=== PATIENT | male | born 1935 | race Caucasian/White ===

== ENCOUNTER 2020-06-11 07:56 | Outpatient (REF) | payer MEDICARE, SELFPAY ==
[2020-06-11 11:57] LABS: Alanine Aminotransferase 23 U/L (0-40); Albumin Level 3.8 g/dL (3.5-5.0); Alkaline Phosphatase 56 U/L (39-117); Anion Gap 11 (12-20); Aspartate Amino Transferase 24 U/L (5-37); Bilirubin Total 0.6 mg/dL (0.0-1.0); Blood Urea Nitrogen 23 mg/dL (9-16); Calcium 8.4 mg/dL (8.4-10.2); Carbon Dioxide 27 mmol/L (22-29); Chloride 107 mmol/L (96-108); Cholesterol 135 mg/dL; Estimated Glomerular Filt Rate > 60; Glucose Fasting 112 mg/dL (60-99); HDL Cholesterol 49 mg/dL; LDL Cholesterol Calculated 72 mg/dl; Potassium 4.3 mmol/l (3.3-5.1); Sodium 141 mmol/L (135-145); Total Protein 6.2 g/dL (6.5-8.0); Triglycerides 73 mg/dL
== END 2020-06-11 07:57 | disposition home or self-care (01) ==
LOC: HO.HMGCLDS 07:56
PROVIDERS: PCP Internal Medicine; Visit Provider Internal Medicine
DX: E78.2 Mixed hyperlipidemia (principal); I35.0 Nonrheumatic aortic (valve) stenosis
CPT/HCPCS: 80053; 80061

== ENCOUNTER 2020-12-18 07:45 | Outpatient (REF) | payer MEDICARE, SELFPAY ==
[2020-12-18 12:07] LABS: Alanine Aminotransferase 25 U/L (0-40); Albumin Level 4.1 g/dL (3.5-5.0); Alkaline Phosphatase 55 U/L (39-117); Anion Gap 12 (12-20); Aspartate Amino Transferase 24 U/L (5-37); Bilirubin Total 0.8 mg/dL (0.0-1.0); Blood Urea Nitrogen 27 mg/dL (9-16); Calcium 9.3 mg/dL (8.4-10.2); Carbon Dioxide 29 mmol/L (22-29); Chloride 107 mmol/L (96-108); Cholesterol 134 mg/dL; Estimated Glomerular Filt Rate > 60; Glucose Fasting 115 mg/dL (60-99); HDL Cholesterol 54 mg/dL; LDL Cholesterol Calculated 68 mg/dl; Potassium 4.5 mmol/L (3.3-5.1); Sodium 143 mmol/L (135-145); Total Protein 6.4 g/dL (6.5-8.0); Triglycerides 63 mg/dL
[2020-12-18 12:32] LABS: Estimated Average Glucose 123 mg/dL; Hemoglobin A1c % 5.9 %
[2020-12-18 12:35] LABS: Creatinine Urine 72.25 mg/dL; Microalbum/Creatinine Ratio Ur 9.6 ug/mg cr
== END 2020-12-18 07:46 | disposition home or self-care (01) ==
LOC: HO.HMGCLDS 07:45
PROVIDERS: PCP Internal Medicine; Visit Provider Internal Medicine
DX: R73.9 Hyperglycemia, unspecified (principal); I35.0 Nonrheumatic aortic (valve) stenosis; E78.5 Hyperlipidemia, unspecified
CPT/HCPCS: 36415; 80053; 80061; 82043; 83036

== ENCOUNTER → 2021-02-15 13:25 | Outpatient (REF) | payer MEDICARE, SELFPAY ==
--- NOTE | 2021-02-15 13:34 | CA_ITS ---
Transthoracic Echocardiogram Patient (Last, First, Middle): Herb Quintero, Gender: Male Date of : 1935 Age: 85 Procedure Date: 02/15/2021 Procedure Type: Transthoracic Echocardiogram Location: OP Height: 172.72 cm Weight: 98.43 kg BSA: 2.12 m2 Heart Rate: bpm BP: 125 / 68 mmHg Eight Section Blower: Referring MD: Estee Butler MD Symptoms: I35.O AORTIC STENOSIS Study Quality: Fair ECG Rhythm: Sinus Conclusions: - The left ventricular systolic function is normal. The visually estimated ejection fraction is between 65-70%. - There is severe aortic valve stenosis. Findings Left Ventricle Normal left ventricular cavity size. There is moderately increased left ventricular wall thickness. The left ventricular systolic function is normal. The visually estimated ejection fraction is between 65-70%. There is no evidence of regional wall motion abnormalities. E/E prime ratio is <8, consistent with normal filling pressures. Evidence suggests grade I (mild) diastolic dysfunction. Right Ventricle Normal right ventricular cavity size and systolic function. Atria Both atria are normal in size. Aortic Valve There is moderate calcification of the aortic valve. There is severe aortic valve stenosis. The peak aortic velocity is 4.00 m/s with a calculated peak gradient of 64 mmHg. The mean gradient is 40 mmHg. The aortic valve area is 0.80 cm2. There is no aortic valve regurgitation. Dimensionless index 0.24. Mitral Valve The mitral valve appears normal. There is no mitral valve regurgitation. There is no mitral valve stenosis. Pulmonic Valve The pulmonic valve was not well visualized. Tricuspid Valve Normal tricuspid valve structure. There is trace tricuspid valve regurgitation. Tricuspid regurgitation envelope is inadequate for calculation of right ventricular systolic pressure. Great Vessels The aorta was not well visualized. Venous The inferior vena cava is normal in size and collapses greater than 50% with inspiration. Pericardium/Pleural There is no evidence of pericardial effusion. Prior Study Comparison Changes noted compared to prior study dated: 10/19/2018. Progression of aortic stenosis. Measurements 2D Linear Measurements IVSd: 1.42 0.6-0.9/0.6-1.0 cm LVIDd: 5.32 3.9-5.3/4.2-5.9 cm LVIDd Index: 2.51 2.4-3.2/2.2-3.1 cm/m2 LVIDs: 3.61 2.0-3.6 cm LVPWd: 1.44 0.7-1.1 cm LA Diam: 4.50 2.7-3.8/3.0-4.0 cm LAIDs Index: 2.12 1.5-2.3 cm/m2 LV Mass: 412.65 67-162/88-224 g LV Mass Index: 194.64 43-95/49-115 g/m2 LVOT Diam: 2.10 3.0+(-)1.3 cm Mitral Valve MV Pk E: 0.47 MV PK A: 0.80 MV Decel Time: 277.00 E/A: 0.60 E'Lateral: 6.53 E'Medial: 5.00 E/E' Med: 9.30 E/E' Lat: 7.20 PHT: 81.00 MVA PHT: 2.72 Decel [place]: 1.69 Aortic Valve AoV Pk Ish: 4.00 AoV Mn Ish: 2.99 AoV VTI: 0.85 AoV Pk Grad: 64.00 Aov Mn Grad: 40.00 ALHAJI Cont.VTI: 0.80 LVOT LVOT Pk Ish: 1.06 LVOT Mn Ish: 0.72 LVOT VTI: 0.23 LVOT Pk Grad: 4.00 LVOT Mn Grad: 3.00 LVOT Diam: 2.10 LVOT Area: 4.52 Diastolic Function MV Pk E: 0.47 MV Pk A: 0.80 E/A: 0.60 E'Medial: 5.00 E/E' Med: 9.30 E' Laterial: 6.53 E/E' Lat: 7.20 Right Ventricle TAPSE (mm): 3.30 TVS' Ish: 14.70 Tricuspid Valve TR Pk Ish: 2.00 TR Pk Grad: 16.00 RA Press: 3.00 RVSP: 19.00 Pulmonary Valve PV Pk Ish: 0.98 Peak PV Grad: 4.00 Updated in Other Vendor System with Status of Final Masood Alberts MD electronically signed on 02/16/2021 11:36:50 AM with status of Final
== END ==
LOC: HO.CARD 13:25
PROVIDERS: Visit Provider Internal Medicine
DX: E78.5 Hyperlipidemia, unspecified (principal); R73.9 Hyperglycemia, unspecified; I35.0 Nonrheumatic aortic (valve) stenosis
CPT/HCPCS: 93306

== ENCOUNTER 2021-07-01 08:16 | Outpatient (REF) | payer MEDICARE, SELFPAY ==
[2021-07-01 11:57] LABS: Hematocrit 40.9 % (42.0-52.0); Hemoglobin 13.6 g/dl (14.0-18.0); Mean Corpuscular HGB Conc 33.3 g/dl (31.0-36.0); Mean Corpuscular Hemoglobin 32.9 pg (27.0-33.0); Mean Corpuscular Volume 98.8 fL (80.0-98.0); Mean Platelet Volume 10.9 fL (9.4-12.4); Platelet Count 154 X10*3/uL (160-400); Red Blood Count 4.14 X10*6/uL (4.60-5.80); Red Cell Distribution Width 12.1 % (11.0-16.0); White Blood Count 4.4 X10*3/uL (4.8-10.8)
[2021-07-01 12:17] LABS: Alanine Aminotransferase 25 U/L (0-40); Albumin Level 3.8 g/dL (3.5-5.0); Alkaline Phosphatase 50 U/L (39-117); Anion Gap 9 (12-20); Aspartate Amino Transferase 26 U/L (5-37); Bilirubin Total 0.7 mg/dL (0.0-1.0); Blood Urea Nitrogen 22 mg/dL (9-16); Calcium 9.1 mg/dL (8.4-10.2); Carbon Dioxide 28 mmol/L (22-29); Chloride 108 mmol/L (96-108); Cholesterol 140 mg/dL; Estimated Glomerular Filt Rate > 60; Glucose Fasting 104 mg/dL (60-99); HDL Cholesterol 46 mg/dL; LDL Cholesterol Calculated 80 mg/dl; Sodium 141 mmol/L (135-145); Total Protein 6.2 g/dL (6.5-8.0); Triglycerides 71 mg/dL
[2021-07-01 12:37] LABS: Estimated Average Glucose 120 mg/dL; Hemoglobin A1c % 5.8 %
== END 2021-07-01 08:17 | disposition home or self-care (01) ==
LOC: HO.HMGCLDS 08:16
PROVIDERS: PCP Internal Medicine; Visit Provider Internal Medicine
DX: E78.5 Hyperlipidemia, unspecified (principal); I35.0 Nonrheumatic aortic (valve) stenosis; R73.9 Hyperglycemia, unspecified
CPT/HCPCS: 36415; 80053; 80061; 83036; 85027

== ENCOUNTER 2021-07-05 12:29 | Outpatient (REF) | payer MEDICARE, SELFPAY ==
[2021-07-05 14:33] LABS: Iron 78 mcg/dL (45-160); Percent Iron Saturation 22 % (15-50); Total Iron Binding Capacity 360 mcg/dL (228-428); Unsaturated Iron Binding 282 ug/dL
[2021-07-05 15:11] LABS: Folate > 20.0 ng/mL (> or = 4.0); Vitamin B12 411 pg/mL (200-900)
== END 2021-07-05 12:30 | disposition home or self-care (01) ==
LOC: HO.HMGCLDS 12:29
PROVIDERS: PCP Internal Medicine; Visit Provider Internal Medicine
DX: D64.9 Anemia, unspecified (principal); E78.5 Hyperlipidemia, unspecified; R73.9 Hyperglycemia, unspecified
CPT/HCPCS: 36415; 82607; 82746; 83540

== ENCOUNTER → 2021-08-20 13:45 | Outpatient (BNVA) | payer MEDICARE, SELFPAY | PROVIDERS: PCP Internal Medicine; Referring Provider Internal Medicine; Visit Provider Internal Medicine | DX: Z13.89 Encounter for screening for other disorder (principal) | CPT/HCPCS: 93005; 99202 ==

== ENCOUNTER → 2021-08-20 14:27 | Outpatient (REF) | payer MEDICARE, SELFPAY ==
--- NOTE | 2021-08-20 14:35 | CA_ITS ---
Transthoracic Echocardiogram Patient (Last, First, Middle): Herb Quintero, Gender: Male Date of : 1935 Age: 85 Procedure Date: 08/20/2021 Procedure Type: Transthoracic Echocardiogram Location: OP Height: 177.8 cm Weight: 99.79 kg BSA: 2.17 m2 Heart Rate: bpm BP: 129 / 60 mmHg Network Infrastructure Architect: ANGEL Referring MD: Masood Alberts MD Symptoms: I35.0 - Nonrheumatic aortic (valve) stenosis Study Quality: Fair ECG Rhythm: Sinus Conclusions: - The left ventricular systolic function is normal. The calculated ejection fraction is 68% by biplane method. - Moderately increased right ventricular cavity size. - There is severe aortic valve stenosis. Findings Left Ventricle Normal left ventricular cavity size. There is moderately increased left ventricular wall thickness. The left ventricular systolic function is normal. The calculated ejection fraction is 68% by biplane method. There is no evidence of regional wall motion abnormalities. Evidence suggests grade I (mild) diastolic dysfunction. Possible basal inferior hypokinesis. Right Ventricle Moderately increased right ventricular cavity size. There is normal right ventricular systolic function. Atria Both atria are normal in size. Aortic Valve There is moderate calcification of the aortic valve. There is severe aortic valve stenosis. The peak aortic velocity is 4.64 m/s with a calculated peak gradient of 86 mmHg. The mean gradient is 54 mmHg. The aortic valve area is 0.78 cm2. There is no aortic valve regurgitation. Mitral Valve There is mild anterior mitral leaflet thickening. There is mild mitral valve regurgitation. There is no mitral valve stenosis. Pulmonic Valve The pulmonic valve was not well visualized. Tricuspid Valve There is trace tricuspid valve regurgitation. The pulmonary artery systolic pressure is normal. Great Vessels The asc aorta is normal in size. Small plaque is seen in the sinuses of Valsalva. Venous The inferior vena cava is normal in size and collapses greater than 50% with inspiration. Pericardium/Pleural There is no evidence of pericardial effusion. Prior Study Comparison Changes noted compared to prior study dated: 02/15/2021. Progression of aortic valve stenosis. Measurements 2D Linear Measurements IVSd: 1.43 0.6-0.9/0.6-1.0 cm LVIDd: 5.28 3.9-5.3/4.2-5.9 cm LVIDd Index: 2.43 2.4-3.2/2.2-3.1 cm/m2 LVIDs: 3.17 2.0-3.6 cm LVPWd: 1.37 0.7-1.1 cm Ao Root: 3.70 2.1-3.5 cm LA Diam: 4.80 2.7-3.8/3.0-4.0 cm LAIDs Index: 2.21 1.5-2.3 cm/m2 LV Mass: 395.53 67-162/88-224 g LV Mass Index: 182.27 43-95/49-115 g/m2 LVOT Diam: 2.10 3.0+(-)1.3 cm 2D Systolic Function EF 4C: 64.60 >55% EF 2C: 72.50 >55% EF BiP: 68.10 >55% Mitral Valve E'Lateral: 5.87 E'Medial: 4.68 Aortic Valve AoV Pk Ish: 4.64 AoV Mn Ish: 3.50 AoV VTI: 1.14 AoV Pk Grad: 86.00 Aov Mn Grad: 54.00 ALHAJI Cont.VTI: 0.78 LVOT LVOT Pk Ish: 1.12 LVOT Mn Ish: 0.73 LVOT VTI: 0.26 LVOT Pk Grad: 5.00 LVOT Mn Grad: 3.00 LVOT Diam: 2.10 LVOT Area: 3.46 Diastolic Function E'Medial: 4.68 E' Laterial: 5.87 Tricuspid Valve TR Pk Ish: 1.35 TR Pk Grad: 7.00 RA Press: 3.00 RVSP: 10.00 Great Vessels Aorta Ao Root-2D: 3.70 2.0-3.7 cm Ao Asc: 3.30 2.1-3.4 cm Updated in Other Vendor System with Status of Final Masood Alberts MD electronically signed on 08/21/2021 10:51:41 AM with status of Final
== END ==
LOC: HO.CARD 14:27
PROVIDERS: Visit Provider Internal Medicine
DX: I35.0 Nonrheumatic aortic (valve) stenosis (principal); I45.9 Conduction disorder, unspecified; E78.5 Hyperlipidemia, unspecified
CPT/HCPCS: 93005; 93306; 99202

== ENCOUNTER → 2021-08-29 13:38 | Outpatient (BNVA) | payer MEDICARE, SELFPAY | PROVIDERS: PCP Internal Medicine; Referring Provider Internal Medicine; Visit Provider Internal Medicine | DX: I35.0 Nonrheumatic aortic (valve) stenosis (principal); I45.9 Conduction disorder, unspecified; E78.5 Hyperlipidemia, unspecified | CPT/HCPCS: 99212 ==

== ENCOUNTER 2021-09-20 10:05 | Outpatient (REF) | payer MEDICARE, SELFPAY ==
[2021-09-20 11:42] LABS: Prothrombin Time 11.8 SEC (9.9-13.0)
[2021-09-20 11:44] LABS: Hematocrit 41.5 % (42.0-52.0); Hemoglobin 13.9 g/dl (14.0-18.0); Mean Corpuscular HGB Conc 33.5 g/dl (31.0-36.0); Mean Corpuscular Hemoglobin 33.1 pg (27.0-33.0); Mean Corpuscular Volume 98.8 fL (80.0-98.0); Mean Platelet Volume 9.9 fL (9.4-12.4); Platelet Count 147 X10*3/uL (160-400); Red Cell Distribution Width 12.2 % (11.0-16.0); White Blood Count 5.3 X10*3/uL (4.8-10.8)
[2021-09-20 11:50] LABS: Anion Gap 10 (12-20); Blood Urea Nitrogen 24 mg/dL (9-16); Calcium 9.5 mg/dL (8.4-10.2); Carbon Dioxide 30 mmol/L (22-29); Chloride 106 mmol/L (96-108); Estimated Glomerular Filt Rate > 60; Glucose Random 115 mg/dL (60-115); Potassium 5.1 mmol/L (3.3-5.1); Sodium 141 mmol/L (135-145)
== END 2021-09-20 10:06 | disposition home or self-care (01) ==
LOC: HO.HMGCLDS 10:05
PROVIDERS: Visit Provider Internal Medicine
DX: I35.0 Nonrheumatic aortic (valve) stenosis (principal); I50.22 Chronic systolic (congestive) heart failure
CPT/HCPCS: 36415; 80048; 85027; 85610

== ENCOUNTER → 2021-10-10 13:36 | Outpatient (BNVA) | payer MEDICARE, SELFPAY | PROVIDERS: PCP Internal Medicine; Referring Provider Internal Medicine; Visit Provider Internal Medicine | DX: I35.0 Nonrheumatic aortic (valve) stenosis (principal); I45.9 Conduction disorder, unspecified; E78.5 Hyperlipidemia, unspecified; Z79.899 Other long term (current) drug therapy | CPT/HCPCS: 99212 ==

== ENCOUNTER 2022-01-07 07:42 | Outpatient (REF) | payer MEDICARE, SELFPAY ==
[2022-01-07 11:56] LABS: Hematocrit 38.8 % (42.0-52.0); Hemoglobin 13.1 g/dl (14.0-18.0); Mean Corpuscular HGB Conc 33.8 g/dl (31.0-36.0); Mean Corpuscular Hemoglobin 33.2 pg (27.0-33.0); Mean Corpuscular Volume 98.2 fL (80.0-98.0); Mean Platelet Volume 10.5 fL (9.4-12.4); Platelet Count 142 X10*3/uL (160-400); Red Blood Count 3.95 X10*6/uL (4.60-5.80); White Blood Count 5.1 X10*3/uL (4.8-10.8)
[2022-01-07 12:01] LABS: Estimated Average Glucose 120 mg/dL; Hemoglobin A1c % 5.8 %
[2022-01-07 12:17] LABS: TSH reflex Free T4 2.79 uIU/mL (0.32-4.0)
[2022-01-07 12:45] LABS: Alanine Aminotransferase 27 U/L (0-40); Albumin Level 3.9 g/dL (3.5-5.0); Alkaline Phosphatase 52 U/L (39-117); Anion Gap 11 (12-20); Aspartate Amino Transferase 22 U/L (5-37); Bilirubin Total 0.7 mg/dL (0.0-1.0); Blood Urea Nitrogen 24 mg/dL (9-16); Calcium 8.6 mg/dL (8.4-10.2); Carbon Dioxide 25 mmol/L (22-29); Chloride 108 mmol/L (96-108); Cholesterol 142 mg/dL; Estimated Glomerular Filt Rate > 60; Glucose Fasting 130 mg/dL (60-99); HDL Cholesterol 47 mg/dL; LDL Cholesterol Calculated 82 mg/dl; Potassium 4.4 mmol/L (3.3-5.1); Sodium 140 mmol/L (135-145); Total Protein 6.2 g/dL (6.5-8.0); Triglycerides 66 mg/dL
== END 2022-01-07 07:43 | disposition home or self-care (01) ==
LOC: HO.HMGCLDS 07:42
PROVIDERS: Visit Provider Internal Medicine
DX: E78.5 Hyperlipidemia, unspecified (principal); I35.0 Nonrheumatic aortic (valve) stenosis; R73.9 Hyperglycemia, unspecified
CPT/HCPCS: 36415; 80053; 80061; 83036; 84443; 85027

== ENCOUNTER 2022-01-13 12:29 | Outpatient (REF) | payer MEDICARE, SELFPAY ==
--- NOTE | ~2022-01-13 | XR_ITS ---
EXAMINATION: XR KNEE AP STANDING CLINICAL INFORMATION: Pain COMPARISON: None TECHNIQUE: AP and lateral bilateral standing view of the knees was obtained. FINDINGS: Left: Bone alignment is normal. No fracture or dislocation is seen. There is tricompartment arthritis. There is no joint effusion. Right: There is mild varus angulation. Bone alignment is otherwise normal. There is severe tricompartment arthritis. There is a joint effusion. XR/XR knee standing BI IMPRESSION: Right: Varus angulation, severe tricompartment arthritis and joint effusion. Left knee: Moderate arthritis.
== END 2022-01-13 12:30 | disposition home or self-care (01) ==
LOC: HO.HMGCX 12:29
PROVIDERS: PCP Internal Medicine; Visit Provider Internal Medicine
DX: M25.561 Pain in right knee (principal); E78.5 Hyperlipidemia, unspecified; I35.0 Nonrheumatic aortic (valve) stenosis; R73.9 Hyperglycemia, unspecified
CPT/HCPCS: 73565

== ENCOUNTER 2022-03-13 09:00 | Outpatient (RCR) | payer MEDICARE, SELFPAY ==
--- NOTE | 2022-01-24 13:09 | MHC.PT.EP ---
[facility] [place] Office [place] Office [place] Office [address] Frandy Ornleas [address] [phone] F: [phone] F: [phone] F: [phone] F: [phone] Physical Therapy Plan of Care Date of Evaluation: Date of Surgery: N/A Diagnosis: pain in right knee (RC) Assessment: Herb is a 86 yo M referred to PT for pain in right knee. His x-rays reveal tricompartment arthritis in his R knee. He reports being I with ADLs but does have difficulty with walking for extended periods of time and reports of having frequent falls on uneven surfaces due to knee pain. Upon examination he presents with gross B weakness of hip and LE strength, decreased hip and knee ROM and altered balance. Herb will benefit from skilled PT to address the aforementioned impairments and recieve gait and balance training with functional movement training. Frequency and Duration: The patient will be seen 1/x week for 4 weeks Short Term Goals: Patient will report 25% decrease in pain while walking for extended periods of time which will allow him to return to walking regularly. pt will improve B ankle dorsiflexion by 10 degrees to reduce tripping and reduce fall risk. Aml Analyst Goals: Patient will be I with HEP to promote oil heaterman pain management strategies and maintain level of function in 4 weeks. Patient will demonstrate a 1/2 increase in gross hip strength which will allow him to maintain balance on uneven surfaces in 4 weeks. Treatment Plan: Modalities to reduce pain, spasms and effusion. Manual therapy to restore motion and function. Therapeutic exercise to improve strength and flexibility. Neuromuscular re-education for posture and balance. Therapeutic activities to return to functional activities of daily living. Electronically signed by: Deepti Kruse PT, DPT Please sign and return to therapist. Thank you for your referral.
--- NOTE | 2022-04-16 08:41 | MHC.PT.DC ---
[facility] [place] Office [place] Office [place] Office [address] Frandy Ornelas [address] [phone] F: [phone] F: [phone] F: [phone] F: [phone] Physical Therapy Discharge Report Diagnosis: pain in right knee (RC) Date of Surgery: N/A Date of Evaluation: 01/24/22 Date of Discharge: 04/16/22 Treatments to Date: 6 Cancellations to Date: 0 No Shows to Date: 0 Discharge Status: Improved Function Independent with HEP Discharge Summary: Herb attended 6 PT visits. He made improvements but still had significant symptoms. He was independent with his HEP. He is therefore being d/c from PT. Electronically signed by: Virgie Christianson, PT DPT Please sign and return to therapist. Thank you for your referral.
== END 2022-04-16 08:41 | disposition home or self-care (01) ==
LOC: HO.PT 09:00
PROVIDERS: PCP Nurse Practitioner Family; Visit Provider Nurse Practitioner Family
DX: M25.561 Pain in right knee (principal)
CPT/HCPCS: 97110; 97140; 97162; 97530

== ENCOUNTER → 2022-05-01 14:24 | Outpatient (BNVA) | payer MEDICARE, SELFPAY | PROVIDERS: PCP Internal Medicine; Visit Provider Orthopaedic Surgery | DX: M17.11 Unilateral primary osteoarthritis, right knee (principal) | CPT/HCPCS: 20610; 99202; J1100 ==

== ENCOUNTER → 2022-06-06 11:14 | Outpatient (BNVA) | payer MEDICARE, SELFPAY | PROVIDERS: PCP Internal Medicine; Visit Provider Orthopaedic Surgery | DX: M17.11 Unilateral primary osteoarthritis, right knee (principal) | CPT/HCPCS: 99212 ==

== ENCOUNTER → 2022-06-09 13:00 | Outpatient (BNVA) | payer MEDICARE, SELFPAY | PROVIDERS: PCP Internal Medicine; Visit Provider Orthopaedic Surgery | DX: M17.11 Unilateral primary osteoarthritis, right knee (principal); R41.3 Other amnesia | CPT/HCPCS: 20610; 99212; J7318 ==

== ENCOUNTER 2022-06-30 08:51 | Outpatient (REF) | payer MEDICARE, SELFPAY ==
[2022-06-30 11:17] LABS: MANUAL DIFF FLAG NO
[2022-06-30 11:29] LABS: Basophils Percent Auto 0.3 % (0-2); Eosinophils Absolute Auto 0.2 X10*3/uL (0.0-0.4); Eosinophils Percent Auto 3.3 % (0-4); Hematocrit 42.3 % (42.0-52.0); Hemoglobin 14.1 g/dl (14.0-18.0); Imm Gran Abs Auto 0.02 X10*3/uL (0.00-0.03); Imm Gran Pct Auto 0.3 % (0.0-0.4); Lymphocytes Absolute Auto 1.8 X10*3/uL (1.2-4.9); Lymphocytes Percent Auto 29.4 % (20-40); Mean Corpuscular HGB Conc 33.3 g/dl (31.0-36.0); Mean Corpuscular Hemoglobin 32.9 pg (27.0-33.0); Mean Corpuscular Volume 98.6 fL (80.0-98.0); Mean Platelet Volume 10.4 fL (9.4-12.4); Monocytes Absolute Auto 0.6 X10*3/uL (0.1-1.2); Monocytes Percent Auto 9.9 % (2-11); Neutrophils Absolute Auto 3.4 x10*3/uL (2.0-8.3); Neutrophils Percent Auto 56.8 % (45-73); Platelet Count 171 X10*3/uL (160-400); Red Blood Count 4.29 X10*6/uL (4.60-5.80); Red Cell Distribution Width 12.2 % (11.0-16.0)
[2022-06-30 11:33] LABS: Estimated Average Glucose 120 mg/dL; Hemoglobin A1c % 5.8 %
[2022-06-30 12:17] LABS: Alanine Aminotransferase 23 U/L (0-40); Alkaline Phosphatase 59 U/L (39-117); Anion Gap 12 (12-20); Aspartate Amino Transferase 22 U/L (5-37); Bilirubin Total 0.7 mg/dL (0.0-1.0); Blood Urea Nitrogen 20 mg/dL (9-16); Calcium 8.8 mg/dL (8.4-10.2); Carbon Dioxide 27 mmol/L (22-29); Chloride 107 mmol/L (96-108); Cholesterol 128 mg/dL; Estimated Glomerular Filt Rate > 60; Glucose Fasting 119 mg/dL (60-99); HDL Cholesterol 46 mg/dL; Iron 137 mcg/dL (45-160); LDL Cholesterol Calculated 67 mg/dl; Percent Iron Saturation 41 % (15-50); Potassium 4.1 mmol/L (3.3-5.1); Sodium 142 mmol/L (135-145); Total Iron Binding Capacity 331 mcg/dL (228-428); Total Protein 6.4 g/dL (6.5-8.0); Triglycerides 77 mg/dL; Unsaturated Iron Binding 194 ug/dL
== END 2022-06-30 08:52 | disposition home or self-care (01) ==
LOC: HO.HMGCLDS 08:51
PROVIDERS: PCP Internal Medicine; Visit Provider Internal Medicine
DX: I35.0 Nonrheumatic aortic (valve) stenosis (principal); R73.9 Hyperglycemia, unspecified; E78.5 Hyperlipidemia, unspecified
CPT/HCPCS: 36415; 80053; 80061; 83036; 83540; 85025

== ENCOUNTER → 2022-07-07 08:50 | Outpatient (BNVA) | payer MEDICARE, SELFPAY | PROVIDERS: PCP Internal Medicine; Visit Provider Orthopaedic Surgery | DX: M17.11 Unilateral primary osteoarthritis, right knee (principal); I45.9 Conduction disorder, unspecified | CPT/HCPCS: 20610; 99212; J1100 ==

== ENCOUNTER → 2022-08-13 08:17 | Outpatient (BNVA) | payer MEDICARE, SELFPAY | PROVIDERS: PCP Internal Medicine; Visit Provider Anesthesiology | DX: M17.11 Unilateral primary osteoarthritis, right knee (principal); I35.0 Nonrheumatic aortic (valve) stenosis; G89.4 Chronic pain syndrome | CPT/HCPCS: 99202 ==

== ENCOUNTER 2022-09-16 05:58 | Outpatient (REF) | payer MEDICARE, SELFPAY ==
--- NOTE | ~2022-09-16 | FL_ITS ---
EXAMINATION: XR FLUOROSCOPY WITH IMAGES CLINICAL INFORMATION: M25.561 - Pain in right knee. COMPARISON: Radiographs right knee 12/22/2018. TECHNIQUE: Fluoroscopy Supervised By: Dr. Paul Carty. Fluoroscopy Time: 0.1 minutes. Cumulative Dose: 3.88 mGy. DAP: 1.05 Gycm2. Images: 2. FINDINGS: There are spinal needles adjacent to the distal femoral shaft, medial and lateral sides, mid depth. There is a spinal needle adjacent to the proximal tibia on medial side mid depth. There are degenerative changes with tricompartment osteoarthritis. FL/FL guidance in treatment room IMPRESSION: Fluoroscopy for pain management procedures.
== END 2022-09-16 05:59 | disposition home or self-care (01) ==
LOC: CF 05:58
PROVIDERS: Visit Provider Anesthesiology
DX: M17.11 Unilateral primary osteoarthritis, right knee (principal); G89.4 Chronic pain syndrome
CPT/HCPCS: 64454; J2795

== ENCOUNTER → 2022-09-18 08:39 | Outpatient (BNVA) | payer MEDICARE, SELFPAY | PROVIDERS: PCP Internal Medicine; Visit Provider Anesthesiology | DX: M25.561 Pain in right knee (principal); M17.11 Unilateral primary osteoarthritis, right knee; I35.0 Nonrheumatic aortic (valve) stenosis; G89.4 Chronic pain syndrome | CPT/HCPCS: Q3014 ==

== ENCOUNTER 2022-10-14 06:02 | Outpatient (REF) | payer MEDICARE, SELFPAY | END 2022-10-14 06:03 | disposition home or self-care (01) | LOC: CF 06:02 | PROVIDERS: Visit Provider Anesthesiology | DX: M17.11 Unilateral primary osteoarthritis, right knee (principal) | CPT/HCPCS: 64447; J2795 ==

== ENCOUNTER → 2022-10-21 14:24 | Outpatient (BNVA) | payer MEDICARE, SELFPAY | PROVIDERS: PCP Internal Medicine; Visit Provider Nurse Practitioner Family | DX: M17.11 Unilateral primary osteoarthritis, right knee (principal); M25.561 Pain in right knee; G89.4 Chronic pain syndrome; I35.0 Nonrheumatic aortic (valve) stenosis | CPT/HCPCS: Q3014 ==

== ENCOUNTER → 2022-11-17 09:08 | Outpatient (BNVA) | payer MEDICARE, SELFPAY | PROVIDERS: PCP Internal Medicine; Visit Provider Anesthesiology | DX: M25.561 Pain in right knee (principal); M17.11 Unilateral primary osteoarthritis, right knee; I35.0 Nonrheumatic aortic (valve) stenosis; G90.521 Complex regional pain syndrome I of right lower limb; G89.4 Chronic pain syndrome | CPT/HCPCS: 99212 ==

== ENCOUNTER → 2022-12-04 11:11 | Outpatient (BNVA) | payer MEDICARE, SELFPAY | PROVIDERS: PCP Internal Medicine; Visit Provider Orthopaedic Surgery | DX: M17.11 Unilateral primary osteoarthritis, right knee (principal); I35.0 Nonrheumatic aortic (valve) stenosis | CPT/HCPCS: 20610; 99212; J1100 ==

== ENCOUNTER 2022-12-23 07:58 | Outpatient (REF) | payer MEDICARE, SELFPAY ==
[2022-12-23 11:48] LABS: Estimated Average Glucose 114 mg/dL; Hemoglobin A1c % 5.6 %
[2022-12-23 11:58] LABS: Alanine Aminotransferase 22 U/L (0-40); Albumin Level 3.7 g/dL (3.5-5.0); Alkaline Phosphatase 58 U/L (39-117); Anion Gap 7 (12-20); Aspartate Amino Transferase 26 U/L (5-37); Bilirubin Total 0.9 mg/dL (0.0-1.0); Blood Urea Nitrogen 22 mg/dL (9-16); Calcium 8.7 mg/dL (8.4-10.2); Carbon Dioxide 29 mmol/L (22-29); Chloride 110 mmol/L (96-108); Cholesterol 127 mg/dL; Estimated Glomerular Filt Rate > 60; Glucose Fasting 114 mg/dL (60-99); HDL Cholesterol 46 mg/dL; LDL Cholesterol Calculated 69 mg/dl; Potassium 4.4 mmol/L (3.3-5.1); Sodium 142 mmol/L (135-145); Triglycerides 63 mg/dL
== END 2022-12-23 07:59 | disposition home or self-care (01) ==
LOC: HO.HMGCLDS 07:58
PROVIDERS: PCP Internal Medicine; Visit Provider Internal Medicine
DX: I35.0 Nonrheumatic aortic (valve) stenosis (principal); R73.9 Hyperglycemia, unspecified; E78.5 Hyperlipidemia, unspecified
CPT/HCPCS: 36415; 80053; 80061; 83036

== ENCOUNTER 2023-03-05 09:49 | Outpatient (AMB) | payer MEDICARE, SELFPAY ==
--- NOTE | 2023-03-05 10:17 | MHC.OFFVIS ---
Intake Vital Signs 03/05/23 10:20 Height 5 ft 9 in Intake Visit Reasons: New Prob - Left Knee Pain - Req Aspiration Intake Note: Herb is an 87 year old male who presents today for a new problem visit with hopes of having his left knee aspirated and requesting an injection. Supervisor Maintenance And Custodians Required: No Accompanied by: Son Allergies No Known Allergies Allergy (Verified 03/05/23 10:19) HPI New Prob - Left Knee Pain - Req Aspiration HPI Details Herb Quintero is an 87-year-old male who presents today to the office for evaluation of left knee pain. The patient had Durolane and steroid injections; his last steroid injection was on 12/04/22. A diagnostic right femoral nerve block resulted in less than substantial pain improvement, and a diagnostic right genicular nerve block, which was performed on 09/16/2022, also resulted in less than substantial improvement of his pain by Dr. Carty. Today he describes left knee pain with standing, stairs and with ADLs. He has pain medially and posterolaterally with some subjective fullness posteriorly. He denies any specific injury. [facility] Medical History Anemia Annual physical exam Aortic stenosis Hyperglycemia Hyperlipidemia Ingrown toenail of both feet Osteoarthritis of right knee Right carpal tunnel syndrome Surgical History H/O colonoscopy No pertinent past surgical history Family History Father No problems noted. Mother No problems noted. Social History Housing: House Alcohol intake: never Patient Tobacco Use Status: Never used Tobacco e-Cigarette/Vaping Use: Never Used Current occupational status: retired Cognitive needs: No Hearing needs: Yes Vision needs: Yes Physical Exam Const General: no acute distress, alert and awake Orientation/consciousness: patient oriented x3 HEENT Head: Yes normocephalic and Yes atraumatic Eyes EOM: EOMs intact bilaterally Resp Effort & Inspection: normal respiratory effort and able to speak in complete sentences Cardio Jugular venous distension: no JVD Skin General skin exam: turgor normal Rashes: no rashes Neuro General: patient oriented x3 Extrem Other: Left knee with 0-120 degrees of motion. [place] cyst present Tenderness to palpation medial joint line Psych Appearance: grossly normal Affect: normal affect Attitude: cooperative Office Procedures Joint Injection/Drain Joint Injection/Drain Details: Injected 1 mL of Decadron and 3 mL 1% lidocaine and 3 mL of 0.25% Marcaine. Site was prepped using aseptic technique. Patient tolerated the procedure well. Primary Site: left knee Approach Used: anterolateral Coding - Large joint Procedure code (CPT) selection complete Results Reviewed Results Reviewed: 03/05/23 10:19 Lidocaine HCl 2 % MPF [Xylocaine 2 % MPF] 5 ml .ROUTE .STK-MED ONE 03/05/23 10:20 BUPivacaine MPF 0.25 % [Sensorcaine-MPF 0.25% 10 ML] 10 ml .ROUTE .STK-MED ONE dexAMETHasone sod phosphate [Decadron] 4 mg .ROUTE .STK-MED ONE I personally reviewed relevant radiographs. Assessment & Plan Assessment & Plan (1) Osteoarthritis of right knee: Code(s): M17.11 - Unilateral primary osteoarthritis, right knee (2) Osteoarthritis of left knee: Code(s): M17.12 - Unilateral primary osteoarthritis, left knee Plan: I injected his left knee today. He has multiple medical conditions and my primary concern is his for gait and the risk of falling. We discussed treatment options but at this time he is unwilling to do formal physical therapy. I injected his left knee and he tolerated this well and he will return to see me in 2-3 months if his pain persists. Plan Scribed for Dr. Eliot Dickerson by Magan Malhotra, director medical economics, on 03/05/2023. I, Dr. Eliot Dickerson, have personally reviewed and agree with the information entered by the scribe. Coding Level of Care Code Est Pt Level 4 (99390) Diagnoses Osteoarthritis of right knee M17.11 Osteoarthritis of left knee M17.12 CPT Codes Coding - Large joint: 38015 - Large joint ([id number])
== END 2023-03-05 10:47 | disposition home or self-care (01) ==
PROVIDERS: PCP Internal Medicine; Visit Provider Orthopaedic Surgery
DX: M17.0 Bilateral primary osteoarthritis of knee (principal)
CPT/HCPCS: 20610; 99214

== ENCOUNTER → 2023-03-05 09:49 | Outpatient (BNVA) | payer MEDICARE, SELFPAY | PROVIDERS: PCP Internal Medicine; Visit Provider Orthopaedic Surgery | DX: M17.0 Bilateral primary osteoarthritis of knee (principal) | CPT/HCPCS: 20610; 99212; J1100 ==

== ENCOUNTER → 2023-05-05 08:45 | Outpatient (REF) | payer MEDICARE, SELFPAY ==
--- NOTE | 2023-05-05 08:48 | CA_ITS ---
Transthoracic Echocardiogram Patient (Last, First, Middle): Herb Quintero, Gender: Male Date of : 1935 Age: 87 Procedure Date: 05/05/2023 Procedure Type: Transthoracic Echocardiogram Location: OP Height: 172.72 cm Weight: 95.26 kg BSA: 2.09 m2 Heart Rate: bpm BP: 140 / 60 mmHg Turbine Engine Assembler: TO Referring MD: Josh Coulter MD Symptoms: S/P TRANSAORTIV VALVE REPLACEMENT Study Quality: Fair ECG Rhythm: Sinus Conclusions: - The left ventricular systolic function is normal. The visually estimated ejection fraction is between 65-70%. - A bioprosthetic aortic valve is present. The prosthetic aortic valve appears to be functioning normally. Findings Left Ventricle Normal left ventricular cavity size. There is moderately increased left ventricular wall thickness. The left ventricular systolic function is normal. The visually estimated ejection fraction is between 65-70%. There is no evidence of regional wall motion abnormalities. Evidence suggests grade I (mild) diastolic dysfunction. 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 Trivial intracavitary/LVOT gradient. Right Ventricle Mildly increased right ventricular cavity size. There is normal right ventricular systolic function. Atria The left atrium is moderately dilated. The right atrium is normal in size. Aortic Valve A bioprosthetic aortic valve is present. The prosthetic aortic valve appears to be functioning normally. There is no aortic valve regurgitation. Mitral Valve The mitral valve appears normal. There is mild mitral annular calcification. There is trace mitral valve regurgitation. There is no mitral valve stenosis. Pulmonic Valve The pulmonic valve is likely normal. Tricuspid Valve There is mild tricuspid valve regurgitation. There is no evidence of pulmonary hypertension. Great Vessels The asc aorta is normal in size. Venous The inferior vena cava is normal in size and collapses greater than 50% with inspiration. Pericardium/Pleural There is no evidence of pericardial effusion. Prior Study Comparison Changes noted compared to prior study dated: 08/20/2021. s/p AVR. Measurements 2D Linear Measurements IVSd: 1.60 0.6-0.9/0.6-1.0 cm LVIDd: 4.30 3.9-5.3/4.2-5.9 cm LVIDd Index: 2.06 2.4-3.2/2.2-3.1 cm/m2 LVIDs: 2.30 2.0-3.6 cm LVPWd: 1.40 0.7-1.1 cm LA Diam: 3.50 2.7-3.8/3.0-4.0 cm LAIDs Index: 1.67 1.5-2.3 cm/m2 LV Mass: 321.89 67-162/88-224 g LV Mass Index: 154.01 43-95/49-115 g/m2 LVOT Diam: 2.20 3.0+(-)1.3 cm 2D Systolic Function EF 4C: 63.00 >55% Mitral Valve MV VTI: 0.29 MV Pk Ish: 1.03 MV Mn Ish: 0.61 MV Pk Grad: 4.00 MV Mn Grad: 2.00 MV Pk E: 0.57 MV PK A: 0.83 MV Decel Time: 296.00 E/A: 0.70 E'Lateral: 4.79 E'Medial: 3.59 E/E' Med: 16.00 E/E' Lat: 12.00 PHT: 87.00 MVA PHT: 2.53 MVA Continuity: 2.98 Decel [place]: 1.94 Aortic Valve AoV Pk Ish: 2.32 AoV Mn Ish: 1.51 AoV VTI: 0.43 AoV Pk Grad: 22.00 Aov Mn Grad: 11.00 ALHAJI Cont.VTI: 2.01 LVOT LVOT Pk Ish: 1.19 LVOT Mn Ish: 0.81 LVOT VTI: 0.23 LVOT Pk Grad: 6.00 LVOT Mn Grad: 3.00 LVOT Diam: 2.20 LVOT Area: 3.80 Diastolic Function MV Pk E: 0.57 MV Pk A: 0.83 E/A: 0.70 E'Medial: 3.59 E/E' Med: 16.00 E' Laterial: 4.79 E/E' Lat: 12.00 Right Ventricle TAPSE (mm): 27.70 TVS' Ish: 13.50 Tricuspid Valve TR Pk Ish: 2.59 TR Pk Grad: 27.00 RA Press: 3.00 RVSP: 30.00 Great Vessels Aorta Ao Asc: 3.80 2.1-3.4 cm Updated in Other Vendor System with Status of Final Masood Alberts MD electronically signed on 05/06/2023 12:08:57 PM with status of Final
== END ==
LOC: HO.CARD 08:45
PROVIDERS: PCP Internal Medicine; Visit Provider Internal Medicine Interventional Cardiology
DX: Z95.4 Presence of other heart-valve replacement (principal)
CPT/HCPCS: 93306

== ENCOUNTER → 2023-05-05 08:48 | Outpatient (BNV) | payer MEDICARE, SELFPAY | PROVIDERS: PCP Internal Medicine; Visit Provider Internal Medicine | DX: I36.1 Nonrheumatic tricuspid (valve) insufficiency (principal); I34.81 Nonrheumatic mitral (valve) annulus calcification | CPT/HCPCS: 93306 ==

== ENCOUNTER 2023-05-15 12:10 | Outpatient (AMB) | payer MEDICARE, SELFPAY ==
[2023-05-15 12:26] VITALS: BP 132/48; PULSE 90; O2SAT 96; BMI 32.1
--- NOTE | 2023-05-15 12:26 | MHC.PC.OV ---
Vital Signs 05/15/23 12:26 Height 5 ft 9 in Weight 217 lb 8 oz BMI 32.1 BP 132/48 L Blood Pressure Location Rt brachial Position Sitting Pulse 90 Pulse Source Pulse Oximeter Pulse Oximetry (%) 96 Oxygen Delivery Method Room Air Intake Visit Reasons: Back pain/Blood on his underclothes in am Allergies No Known Allergies Allergy (Verified 05/15/23 12:28) Medication List - Last Reconciled 05/15/23 by Estee Butler MD aspirin 81 mg PO DAILY atorvastatin 10 mg PO DAILY ibuprofen 200 mg PO Q6H PRN multivitamin 1 tab PO DAILY Tobacco use date assessed: 05/15/23 Fall risk assessment: 1 Fall in past year Last assessed Fall Risk: 05/15/23 Dental Screening Dental Screen Date: 05/15/23 Did you have a dental visit in the last 12 months?: Yes Did you have a dental problem in the last 6 months where you did not have access to dental care?: No Was dental information given to patient?: Patient has dentist HPI Back pain/Blood on his underclothes in am HPI Details Patient presents complaining of lower back pain after he twisted his body climbing the ladder. Patient noticed to 2 drops of blood on his underwear this morning. He had a bowel movement this morning but did not notice hematochezia or melena. Patient denies abdominal pain dysuria frequency fever chills. [facility] Medical History Anemia Annual physical exam Aortic stenosis Hyperglycemia Hyperlipidemia Ingrown toenail of both feet Osteoarthritis of right knee Right carpal tunnel syndrome Surgical History H/O colonoscopy No pertinent past surgical history Family History Father No problems noted. Mother No problems noted. Social History Housing: House Alcohol intake: never Patient Tobacco Use Status: Never used Tobacco e-Cigarette/Vaping Use: Never Used Current occupational status: retired Cognitive needs: No Hearing needs: Yes Vision needs: Yes Questionnaire Thrive Questionnaire Date Thrive assessed: 01/05/23 AUDIT C Alcohol Use Questionnaire (AUDIT-C) 1. How often do you have a drink containing alcohol?: Monthly or less 2. How many drinks containing alcohol do you have on a typical day when you are drinking?: 1 or 2 3. How often do you have six or more drinks on one occasion?: Never Total Score: 1 EMILIE-7 AMB Questionnaire EMILIE-7 Date EMILIE - 7 assessed: 01/05/23 Source: Developed by Drs. Shashank Kimbrough, Georgina Turner, Sarthak Askew and colleagues, with an educational luther from [employer]. Review of Systems Const All systems reviewed & are unremarkable except as noted in HPI and below Reports no additional complaints Eyes Reports no additional complaints ENT Reports no additional complaints Card Reports no additional complaints Resp Reports no additional complaints GI Reports no additional complaints Reports no additional complaints Physical exam (Primary Care) Vital Signs: Last Vital Signs Pulse 90 05/15/23 12:26 BP 132/48 L 05/15/23 12:26 Pulse Ox 96 05/15/23 12:26 Oxygen Delivery Method Room Air 05/15/23 12:26 BMI result Body Mass Index 32.1 Tobacco/Smoking Status: Tobacco use Status Tobacco use date assessed 05/15/23 05/15/23 12:29 Patient Tobacco Use Status Never used Tobacco 05/15/23 12:29 e-Cigarette/Vaping Use Never Used 05/15/23 12:29 Thrive Assessment: Date of Thrive Assessment Date Thrive assessed 01/05/23 05/15/23 12:29 Const General: no acute distress HENMT Head: Yes normal to inspection Face and sinus: Yes normal facial exam Mouth: Normal oral and palatal mucosa present Throat: Yes posterior oropharynx normal Neck Neck: Yes no lymphadenopathy and Yes supple Resp Effort & Inspection: normal respiratory effort Auscultation: clear to auscultation bilaterally Cardio Rhythm: regular rhythm Heart sounds: S1 normal heart sound present and S2 normal heart sound present GI Inspection: Yes normal to inspection Palpation (GI): Soft to palpation Percussion: Yes normal to percussion Auscultation: normal bowel sounds Assessment and Plan Assessment & Plan (1) Dysuria: Code(s): R30.0 - Dysuria Plan: Check UA and culture (2) Lower back pain: Code(s): M54.50 - Low back pain, unspecified Plan: Prednisone taper and baclofen as prescribed and supportive care discussed with the patient. if symptoms persist he will be referred for physical therapy Orders: Orders UA CC w/rflx Micro + Cult Today R30.0 - Dysuria Medications: New prednisone 4 tabl qd x 3 days, then 3 tabl qd x 3, then 2 tablx 3 days, then 1 qd x 3 days 10 mg PO DAILY 30 tabs 0RF baclofen 10 mg PO BID 30 tabs 0RF Coding Level of Care Code Est Pt Level 3 (37126) Diagnoses Dysuria R30.0 Lower back pain M54.50
== END 2023-05-15 13:20 | disposition home or self-care (01) ==
PROVIDERS: PCP Internal Medicine; Visit Provider Internal Medicine
DX: R30.0 Dysuria (principal); M54.50 Low back pain, unspecified
CPT/HCPCS: 99213

== ENCOUNTER 2023-05-15 13:12 | Outpatient (REF) | payer MEDICARE, SELFPAY ==
[2023-05-15 16:01] LABS: Appearance Urine Clear; Color Urine Yellow; Glucose Urine UA Negative (Negative); Leukocyte Esterase Urine Negative (Negative); Nitrite Urine Negative (Negative); PH 5.5 (5.0-9.0); Specific Gravity - Urine >= 1.030 (1.005-1.025); Urine Blood Negative (Negative); Urine Ketones Negative (Negative); Urine Protein Trace mg/dL (Neg-Trace)
== END 2023-05-15 13:13 | disposition home or self-care (01) ==
LOC: HO.HMGCLDS 13:12
PROVIDERS: PCP Internal Medicine; Visit Provider Internal Medicine
DX: R30.0 Dysuria (principal)
CPT/HCPCS: 81003

== ENCOUNTER 2023-05-18 10:08 | Outpatient (REF) | payer MEDICARE, SELFPAY ==
--- NOTE | ~2023-05-18 | XR_ITS ---
EXAMINATION: XR LUMBOSACRAL SPINE CLINICAL INFORMATION: Low back pain COMPARISON: None available. TECHNIQUE: Three views of the lumbosacral spine. FINDINGS: There are L1 and L2 vertebral body compression fractures, mild/moderate L1 and moderate/severe L2. L1 vertebral body compression fracture probably old. There is slight increased sclerosis along the superior endplate of the L1 body and this fracture may be more recent. Question sacral fracture, S4. Degenerative spondylosis at L2-L3 and L3-L4. Disc space narrowing at T12-L1, L1-L2 and L2-L3. Lower lumbar spine facet arthritis. Atherosclerotic disease. XR/XR lumbar spine 2-3V IMPRESSION: L1 and L2 vertebral body compression fractures. Degenerative changes.
== END 2023-05-18 10:09 | disposition home or self-care (01) ==
LOC: HO.HMGCX 10:08
PROVIDERS: PCP Internal Medicine; Visit Provider Internal Medicine
DX: M54.50 Low back pain, unspecified (principal)
CPT/HCPCS: 72100

== ENCOUNTER 2023-05-22 14:17 | Outpatient (REF) | payer MEDICARE, SELFPAY ==
--- NOTE | ~2023-05-22 | XR_ITS ---
EXAMINATION: XR SACRUM XR THORACIC SPINE SPINE CLINICAL INFORMATION: History of falling. Pain. COMPARISON: Lumbar spine 05/18/2023. TECHNIQUE: 5 views of the thoracic spine. 5 views of the sacrum/coccyx. FINDINGS: THORACIC SPINE: Redemonstration of atzm-jg-qdhswjrw L1, and zzbwjiak-dr-lekwyl L2 vertebral body compression fractures, better characterized on lumbar spine radiographs of 05/18/2023. Dextroscoliosis of the thoracic spine with advanced multilevel degenerative changes with hypertrophic change. Bones are diffusely demineralized. Atherosclerotic aortic calcifications. Prosthetic cardiac valve. Moderate superior endplate concavity of the T8 vertebral body. Advanced degenerative changes on very limited views of the incompletely imaged cervical spine. SACRUM/COCCYX: Degenerative changes in the imaged lower lumbar spine, better characterized on lumbar spine radiographs of 05/18/2023. Previously questioned possible sacral fracture of S4 is difficult to confirm. The bones are diffusely demineralized. Degenerative changes on limited views of the bilateral hips, left greater than right. Degenerative changes in the bilateral sacroiliac joints XR/XR thoracic spine 3V IMPRESSION: 1. Redemonstration of L1 and L2 vertebral body compression fractures, better characterized on lumbar spine radiographs of 05/18/2023. 2. Moderate superior endplate concavity of the T8 vertebral body of uncertain age. Prior images are not available for direct comparison. 3. Previously questioned possible sacral fracture of S4 is difficult to confirm. MRI recommended for further evaluation.
--- NOTE | ~2023-05-22 | XR_ITS ---
EXAMINATION: XR SACRUM XR THORACIC SPINE SPINE CLINICAL INFORMATION: History of falling. Pain. COMPARISON: Lumbar spine 05/18/2023. TECHNIQUE: 5 views of the thoracic spine. 5 views of the sacrum/coccyx. FINDINGS: THORACIC SPINE: Redemonstration of hrxc-hs-ddafgrsv L1, and exowgqzm-ju-uybrur L2 vertebral body compression fractures, better characterized on lumbar spine radiographs of 05/18/2023. Dextroscoliosis of the thoracic spine with advanced multilevel degenerative changes with hypertrophic change. Bones are diffusely demineralized. Atherosclerotic aortic calcifications. Prosthetic cardiac valve. Moderate superior endplate concavity of the T8 vertebral body. Advanced degenerative changes on very limited views of the incompletely imaged cervical spine. SACRUM/COCCYX: Degenerative changes in the imaged lower lumbar spine, better characterized on lumbar spine radiographs of 05/18/2023. Previously questioned possible sacral fracture of S4 is difficult to confirm. The bones are diffusely demineralized. Degenerative changes on limited views of the bilateral hips, left greater than right. Degenerative changes in the bilateral sacroiliac joints XR/XR sacrum coccyx min 2V IMPRESSION: 1. Redemonstration of L1 and L2 vertebral body compression fractures, better characterized on lumbar spine radiographs of 05/18/2023. 2. Moderate superior endplate concavity of the T8 vertebral body of uncertain age. Prior images are not available for direct comparison. 3. Previously questioned possible sacral fracture of S4 is difficult to confirm. MRI recommended for further evaluation.
== END 2023-05-22 14:18 | disposition home or self-care (01) ==
LOC: HO.XRAY 14:17
PROVIDERS: PCP Internal Medicine; Visit Provider Nurse Practitioner Family
DX: S32.010A Wedge compression fracture of first lumbar vertebra, initial encounter for closed fracture (principal); S32.020A Wedge compression fracture of second lumbar vertebra, initial encounter for closed fracture; M54.9 Dorsalgia, unspecified; Z91.81 History of falling
CPT/HCPCS: 72072; 72220; 99212

== ENCOUNTER 2023-05-22 14:17 | Outpatient (AMB) | payer MEDICARE, SELFPAY ==
--- NOTE | 2023-05-22 14:23 | MHC.OFFVIS ---
Intake Vital Signs 05/22/23 14:36 Height 5 ft 9 in Weight 207 lb BMI 30.6 BP 150/69 H Blood Pressure Location Lt brachial Position Sitting Pulse 88 Pulse Source Pulse Oximeter Pulse Oximetry (%) 98 Oxygen Delivery Method Room Air Intake Visit Reasons: Wedge compression fracture/ second lumbar vertebra Intake Note: Pain today 03/29 Director Of Radio Services Required: No Accompanied by: Son Allergies No Known Allergies Allergy (Verified 05/22/23 14:35) HPI HPI Comments History of Present Illness Details Patient is a pleasant 87 years old male status post recent transfemoral TAVR procedure at [facility] on 04/09/23 presents today for mid-low back pain. Patient attributes back pain due to recent fall while climbing stairs at his gazebo about 2 weeks ago when he tripped going down stairs. Since then he has been in constant, slowly worsening pain which he describes as aching, sharp, dull and throbbing. Walking, standing, bending, twisting and any movements aggravate his pain. He is wearing a back brace and has been managing his pain with Tylenol and Ibuprofen with minimal pain relief. Patient lives alone and has local supportive family. He followed up with his PCP and was ordered a prednisone taper. Lumbar spine xray showed mild/moderate L1 and moderate/severe L2 vertebral body compression fractures and multilevel degenerative changes. Denies history of osteoporosis. Takes Aspirin 81 mg daily. Denies any fever, abdominal or groin pain, weakness, bladder or bowel dysfunction or saddle anesthesia. PRIOR: Patient is a 86 years old male with severe right tricompartmental knee OA presents today via telehealth encounter to assess response to Right Diagnostic Femoral Nerve Block on 10/14/[address] Carty. Patient's son Kevin is presents on telehealth visit today. Patient reprots 10% pain relief on the day of procedure and 30% pain relief the next day after the procedure. Patient reports his pain after injections was tolerable with walking until he had to climb stairs and could not continue walking due to severe exacerbation of right knee pain. Unfortunately, patient had mild pain relief with genicular nerve blocks as well as found no relief with NSAIDs, steroid injections, viscosupplementation, or PT, and he is not a surgical candidate per orthopedic surgeon. Patient is undergoing second cardiac evaluation in December regarding aortic stenosis. We discussed to undergo a repeat nerve blocks injections in order to establish reproducible response to treatment for potential peripheral nerve stimulation or genicular RFA. Patient and his son report they will think about this and request if patient can start pain medication to alleviate his pain. I have informed patient and his family that we do not offer opioid program at this time. Denies any recent cough, cold, infection, fever or other significant changes in medical history since last office visit. PRIOR 09/18/22 Dr. Carty: Herb is in the phone today to discuss the results of diagnostic right genicular nerve block which was performed on 09/16/2022. She reports that the during the 1st hour after the injection his pain was reduced about 40% from 7-8 out of 10 to 4 to 5/10. The 2nd hour after procedure she reported his pain 6/10 under 3rd hour after procedure the pain return to 7 to 8/10 the patient reports slight improvement in mobility however admits that the posterior surface of the knee got better pain relief (?) Compared to the front. In any case the results of the injections are not encouraging for any manipulation with genicular nerves. I think we need to perform diagnostic right-sided femoral nerve block. For this procedure he needs to be by a the relative because after the procedure the anterior surface of the hip muscles vastus lateralis, medialis and intermedius will be partially paralyzed. Prior:C/o on pain in the right knee. He reports that physical activity aggravates the pain of his knee. Started in the summer of 2021. He went orthopedic surgeon for consult and was referred for pain management because he has critical aortic stenosis. He manages his pain with exuberant doses of ibuprofen. He is also taking atorvastatin. He is living by himself and wants to perform all the activities in the house however the pain is not very conducive for this task. physical therapy aggravated his pain. He has images of his knee which are dictated as below. Past medical history is significant for critical aortic stenosis. [facility] Medical History Anemia Annual physical exam Aortic stenosis Hyperglycemia Hyperlipidemia Ingrown toenail of both feet Osteoarthritis of right knee Right carpal tunnel syndrome Surgical History H/O colonoscopy No pertinent past surgical history Family History Father No problems noted. Mother No problems noted. Social History Housing: House Alcohol intake: never Patient Tobacco Use Status: Never used Tobacco e-Cigarette/Vaping Use: Never Used Current occupational status: retired Cognitive needs: No Hearing needs: Yes Vision needs: Yes Review of Systems Const All systems reviewed & are unremarkable except as noted in HPI and below Physical Exam Vital Signs: Last Vital Signs Pulse 88 05/22/23 14:36 BP 150/69 H 05/22/23 14:36 Pulse Ox 98 05/22/23 14:36 Oxygen Delivery Method Room Air 05/22/23 14:36 BMI result Body Mass Index 30.6 General: Appears afebrile. Acute moderate distress due to midline back pain. Alert and oriented. Mood and affect appropriate. Follows and participates in conversation appropriately. Respiratory effort is unlabored. No cough. Able to transition from sit to stand unassisted. Uses cane with walking. Ambulates with bilaterally normal heel strike and toe off. Back/Spine/Pelvis Other: Moderate midline tenderness to palpation in the upper lumbar spine. Mild paraspinal tenderness to palpation in the lumbar spine. Lumbar extension reproduces moderate-severe symptoms. Lumbar flexion does reproduce symptoms. Back: back tenderness Cervical Spine: cervical ROM normal and No Cervical spine tenderness Thoracic/Lumbar Spine: thoracic and lumbar spine normal to inspection, No Thoracic/lumbar spine scar(s), pain with thoraco-lumbar ROM, paraspinal muscle tenderness, thoraco-lumbar ROM limited, thoracic spinal tenderness and lumbar spinal tenderness Pelvis: buttock tenderness bilaterally Results Reviewed Results Reviewed: XR LUMBOSACRAL SPINE 05/18/23 CLINICAL INFORMATION: Low back pain COMPARISON: None available. FINDINGS: There are L1 and L2 vertebral body compression fractures, mild/moderate L1 and moderate/severe L2. L1 vertebral body compression fracture probably old. There is slight increased sclerosis along the superior endplate of the L1 body and this fracture may be more recent. Question sacral fracture, S4. Degenerative spondylosis at L2-L3 and L3-L4. Disc space narrowing at T12-L1, L1-L2 and L2-L3. Lower lumbar spine facet arthritis. Atherosclerotic disease. IMPRESSION: L1 and L2 vertebral body compression fractures. Degenerative changes. Assessment & Plan Assessment & Plan (1) History of recent fall: Code(s): Z91.81 - History of falling (2) Acute midline back pain: Code(s): M54.9 - Dorsalgia, unspecified (3) Lumbar degenerative disc disease: Code(s): M51.36 - Other intervertebral disc degeneration, lumbar region (4) Traumatic compression fracture of L1 lumbar vertebra: Code(s): S32.010A - Wedge compression fracture of first lumbar vertebra, initial encounter for closed fracture (5) Traumatic compression fracture of L2 vertebra: Code(s): S32.020A - Wedge compression fracture of second lumbar vertebra, initial encounter for closed fracture Plan Thoracic spine and sacrum imaging to assess degree of degenerative changes, any subluxation, dislocation, listhesis, compression fractures or pars defects. Lumbar spine xray is noted for mild/moderate L1 and moderate/severe L2 vertebral body compression fractures and multilevel degenerative changes. Will follow up on these fractures with Bone scan too. Discussed treatments for midline back pain related to compression fractures. Tentatively plan for L1 and L2 Kyphoplasty with sedation and fluoroscopy. Short script provided for Tramadol, side effects and precautions has been reviewed with patient and his son Kevin who is pharmacist. Anticoagulation: Patient on anticoagulation (Aspirin) and instructions given on when to pause with prescribing physician permission. Justification for interventional therapy: ? Patient with average pain > 6/10 ? Patient has exhausted conservative therapy The risks, consequences, alternatives, and benefits of various treatment options were discussed with the patient in great detail, including conservative management, injections and procedures. Orders: Orders XR DEXA axial skeleton 05/22/23 M54.50 - Low back pain, unspecified, S32.020A - Wedge compression fracture of second lumbar vertebra, initial encounter for closed fracture, Z91.81 - History of falling XR thoracic spine 3V 05/22/23 M54.50 - Low back pain, unspecified, S32.020A - Wedge compression fracture of second lumbar vertebra, initial encounter for closed fracture, Z91.81 - History of falling XR sacrum coccyx min 2V 05/22/23 M54.50 - Low back pain, unspecified, S32.020A - Wedge compression fracture of second lumbar vertebra, initial encounter for closed fracture, Z91.81 - History of falling Medications: New tramadol 50 mg PO BID 7 days PRN 14 tabs 0RF pain M54.50 - Low back pain, unspecified, S32.020A - Wedge compression fracture of second lumbar vertebra, initial encounter for closed fracture Discontinued prednisone 4 tabl qd x 3 days, then 3 tabl qd x 3, then 2 tablx 3 days, then 1 qd x 3 days Discontinued Reason: Doctor's Order 10 mg PO DAILY 30 tabs 0RF Coding Level of Care Code Est Pt Level 4 (02936) Diagnoses History of recent fall Z91.81 Acute midline back pain M54.9 Lumbar degenerative disc disease M51.36 Traumatic compression fracture of L1 lumbar vertebra S32.010A Traumatic compression fracture of L2 vertebra S32.020A
[2023-05-22 14:36] VITALS: BP 150/69; PULSE 88; O2SAT 98; BMI 30.6
== END 2023-05-22 15:28 | disposition home or self-care (01) ==
PROVIDERS: PCP Internal Medicine; Visit Provider Nurse Practitioner Family
DX: M54.9 Dorsalgia, unspecified (principal); Z91.81 History of falling; S32.010A Wedge compression fracture of first lumbar vertebra, initial encounter for closed fracture; S32.020A Wedge compression fracture of second lumbar vertebra, initial encounter for closed fracture; M51.36 Other intervertebral disc degeneration, lumbar region
CPT/HCPCS: 99214

== ENCOUNTER 2023-05-27 15:25 | Outpatient (REF) | payer MEDICARE, SELFPAY ==
--- NOTE | ~2023-05-27 | MR_ITS ---
EXAMINATION: MR LUMBAR SPINE WITHOUT CONTRAST CLINICAL INFORMATION: Wedge compression fracture of the 1st lumbar vertebra. COMPARISON: Lumbar spine radiographs from 05/18/2023 TECHNIQUE: MRI of the lumbar spine was obtained using routine sequences without contrast. FINDINGS: Is a compression deformities of the L1 and L2 vertebral bodies with there is no loss of L1 vertebral body heights and and 50% loss of L1 vertebral body height and 60% loss of L2 vertebral body heights. Persistent marrow edema throughout the L1 and L2 vertebral bodies as well as the bilateral L1 pedicles. Normal anatomic alignment. Normal, homogeneous marrow signal throughout. The vertebral body heights are maintained. The intervertebral discs are of normal height and signal. The conus medullaris terminates at the level of L2. The distal spinal cord is normal in appearance. No significant abnormalities of the paraspinal musculature. Limited evaluation of the intra-abdominal structures without significant abnormalities. The abdominal aorta is of normal contour and caliber. Retroaortic left renal vein. AXIAL SPINAL LEVELS: T12-L1: Moderate diffuse disc bulge with posterior osseous. There is moderate right and mild left facet joint. There is moderate bilateral neural foraminal stenosis. There is mild neural foraminal stenosis. L1-L2: Mild diffuse disc bulge with posterior osseous ridging. There is mild bilateral facet joint arthropathy. There is moderate left and mild right neural foraminal stenosis. There is no spinal canal stenosis. L2-L3: Moderate diffuse disc bulge with posterior osseous ridging. There is moderate to severe bilateral facet joint arthropathy with ligamentum flavum hypertrophy. There is severe right worse than left neural foraminal stenosis. There is moderate spinal canal stenosis. L3-L4: Moderate diffuse disc bulge. There is moderate to severe bilateral facet joint arthropathy. There is moderate bilateral neural foraminal stenosis. There is stenosis of the subarticular zones with moderate spinal canal stenosis centrally. L4-L5: Moderate diffuse disc bulge with superimposed central disc protrusion. There is moderate to severe bilateral facet joint arthropathy. There is moderate left and mild right neural foraminal stenosis. There is severe spinal canal stenosis right.. L5-S1: Mild disc bulge with superimposed small central disc protrusion. There is moderate bilateral facet joint arthropathy. There is moderate bilateral neural foraminal stenosis. There is narrowing of the subarticular zones with no overt spinal canal stenosis centrally. MR/MR lumbar spine wo con IMPRESSION: 1. Compression fractures of the L1 and L2 vertebral bodies with persistent marrow edema. 2. 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 Most notably, there are moderate to severe spinal canal stenoses from L2-L5. Moderate to severe neural foraminal stenoses from T12-S1.
== END 2023-05-27 15:26 | disposition home or self-care (01) ==
LOC: HO.MRI 15:25
PROVIDERS: Visit Provider Nurse Practitioner Family
DX: S32.010A Wedge compression fracture of first lumbar vertebra, initial encounter for closed fracture (principal); S32.020A Wedge compression fracture of second lumbar vertebra, initial encounter for closed fracture; M51.36 Other intervertebral disc degeneration, lumbar region; M54.9 Dorsalgia, unspecified
CPT/HCPCS: 72148

== ENCOUNTER 2023-06-05 09:13 | Day surgery (SDC) | payer MEDICARE, SELFPAY ==
--- NOTE | 2023-06-04 09:46 | HO.ANESPROP2 ---
Documented by User: Danette Baugh NP 06/04/23 09:59 HPI - Anesthesia Eval Consult details Narrative: 87yo M for Kyphoplasty Last cardiology office visit 05/15/23 - stable with improved symptoms postop. s/p TAVR 04/09/23. Per Cardiology, ok to proceed with kypho. Should not stop asa preop until 3 months postop. However, instructed by pain management office to hold asa 7 days preop. Per Maris Bertrand [facility] Active Problems Active Problems: All Active Problems (Updated 05/24/23 @ 13:39 by LINSEY Tan) Traumatic compression fracture of L2 vertebra (Acute) Traumatic compression fracture of L1 lumbar vertebra (Acute) Lumbar degenerative disc disease (Acute) Acute midline back pain (Acute) History of recent fall (Acute) Compression fracture of L2 lumbar vertebra (Acute) Lower back pain (Acute) Dysuria (Acute) Complex regional pain syndrome of right lower extremity (Acute) Critical aortic valve stenosis (Acute) Chronic pain syndrome (Acute) Osteoarthritis of right knee (Acute) Memory difficulties (Acute) Osteoarthritis of left knee (Acute) Right knee pain (Acute) Other and unspecified hyperlipidemia (Acute) Conduction disorder of the heart (Acute) Non-rheumatic aortic stenosis (Acute) Annual physical exam (Acute) Osteoarthritis of right knee (Acute) Anemia (Acute) Ingrown toenail of both feet (Acute) Hyperlipidemia (Acute) Hyperglycemia (Acute) Aortic stenosis (Acute) Past Medical History Medical History (Updated 05/24/23 @ 13:39 by LINSEY Tan) Annual physical exam Osteoarthritis of right knee Anemia Ingrown toenail of both feet Hyperglycemia Aortic stenosis Right carpal tunnel syndrome Hyperlipidemia Family History Family History Father No problems noted. Mother No problems noted. Surgical History Surgical History (Updated 06/04/23 @ 09:51 by Danette Baugh NP) S/P TAVR (transcatheter aortic valve replacement) (~03/2023) H/O colonoscopy Social History Social History Housing: House Alcohol intake: never Patient Tobacco Use Status: Never used Tobacco e-Cigarette/Vaping Use: Never Used Are you DNR?: No Advance Directives: No Advance Directives Information Provided: Yes Nutrition Risks: No Nutritional Risk Current occupational status: retired Cognitive needs: No Hearing needs: Yes Vision needs: Yes Meds Allergies Allergy/AdvReac Type Severity Reaction Status Date / Time No Known Allergies Allergy Verified 05/22/23 14:35 Home Medications Medication Instructions Recorded Confirmed Last Taken Type aspirin 81 mg tablet,delayed 81 mg PO DAILY 07/05/21 05/15/23 06/02/23 History release multivitamin 1 tab PO DAILY 07/05/21 05/15/23 Unknown History ibuprofen 200 mg tablet 200 mg PO Q6H PRN Pain 07/07/22 05/15/23 06/02/23 History Exam Pertinent Lab Results Pertinent Lab Results: Laboratory Tests 12/23/22 08:03 Sodium 142 Potassium 4.4 Chloride 110 H Carbon Dioxide 29 BUN 22 H Creatinine 0.76 CBC 03/2023 from outside facility WBC 6.5 Hgb 11.8 (low) Hct 35.5 (low) Plt 119 (low) Narrative Narrative: EKG 04/2023 NSR RBBB LAFB Bifasc block No change from previous ECHO 04/2023 Conclusions: - The left ventricular systolic function is normal. The visually estimated ejection fraction is between 65-70%. - A bioprosthetic aortic valve is present. The prosthetic aortic valve appears to be functioning normally. Preop TAVR Cath no CAD Assessment and Plan Assessment Anesthesia Assessment: Chart Reviewed Documented by User: Matt Deleon MD 06/05/23 11:09 [facility] Past Medical History Medical History (Updated 05/24/23 @ 13:39 by LINSEY Tan) Annual physical exam Osteoarthritis of right knee Anemia Ingrown toenail of both feet Hyperglycemia Aortic stenosis Right carpal tunnel syndrome Hyperlipidemia Family History Family History Father No problems noted. Mother No problems noted. Family history of problems with anesthesia: No Surgical History Surgical History (Updated 06/04/23 @ 09:51 by Danette Baugh NP) S/P TAVR (transcatheter aortic valve replacement) (~03/2023) H/O colonoscopy History of Problems with Anesthesia: No Social History Social History Housing: House Alcohol intake: never Patient Tobacco Use Status: Never used Tobacco e-Cigarette/Vaping Use: Never Used Are you DNR?: No Advance Directives: No Advance Directives Information Provided: Yes Nutrition Risks: No Nutritional Risk Current occupational status: retired Cognitive needs: No Hearing needs: Yes Vision needs: Yes Meds Allergies Allergy/AdvReac Type Severity Reaction Status Date / Time No Known Allergies Allergy Verified 05/22/23 14:35 Home Medications Medication Instructions Recorded Confirmed Last Taken Type aspirin 81 mg tablet,delayed 81 mg PO DAILY 07/05/21 05/15/23 06/02/23 History release multivitamin 1 tab PO DAILY 07/05/21 05/15/23 Unknown History ibuprofen 200 mg tablet 200 mg PO Q6H PRN Pain 07/07/22 05/15/23 06/02/23 History Exam Airway Mallampati Class: III TM Dist: >3cm Neck ROM: Full Assessment and Plan Assessment Anesthesia Assessment: Anesthesia Plan Discussed Final Anesthetic Review Family History of Problems with Anesthesia: No History of Problems with Anesthesia: No NPO: Yes ASA Class: III Final Preanesthetic Review: No Changes in Pt Med Stat, Meds/Allgs Chart Reviewed, Consent Obtained/Reviewed and Anes Risks/Benef Reviewed Patient Risk: Intermediate Procedure Risk: Low Anesthetic Plan Anesthetic Plan: MAC: Disposition: Standard PACU
[2023-06-05] VITALS (11 sets, daily range): BP systolic 128–166; BP diastolic 67–94; PULSE 76–88; RESP 12–20; TEMP 36.3–36.9; O2SAT 94–99; BMI 34.4
--- NOTE | ~2023-06-05 | FL_ITS ---
EXAMINATION: XR FLUOROSCOPY WITH IMAGES CLINICAL INFORMATION: Kyphoplasty. COMPARISON: Previous lumbar spine MRI 05/27/2023 and thoracic spine x-ray May 2023 and lumbar spine x-ray 05/18/2020 TECHNIQUE: Fluoroscopy Supervised By: Dr. Tony Dixon. Fluoroscopy Time: 2 minutes 11 seconds. Cumulative Dose: 114 mGy. DAP: 13.7 Gycm2. Images: 5. FINDINGS: Images demonstrate kyphoplasty with new cement seen in the L1 and L2 vertebral bodies. Compression fractures of L1 and L2 appear unchanged. FL/FL guidance in OR IMPRESSION: Fluoroscopy guidance for L1 and L2 kyphoplasty
[2023-06-05] MEDS: Lactated Ringers 1,000 ML 100 ML IVCONT (10:24)
[2023-06-05 11:03] LABS: MRSA Nasal PCR NEGATIVE (Negative); SA Nasal PCR POSITIVE (Negative)
--- NOTE | 2023-06-05 11:22 | HO.ANESPROP2 ---
HPI - Anesthesia Eval Consult details Narrative: L2 Compression fracture PMFSH Active Problems Active Problems: All Active Problems (Updated 05/24/23 @ 13:39 by LINSEY Tan) Traumatic compression fracture of L2 vertebra (Acute) Traumatic compression fracture of L1 lumbar vertebra (Acute) Lumbar degenerative disc disease (Acute) Acute midline back pain (Acute) History of recent fall (Acute) Compression fracture of L2 lumbar vertebra (Acute) Lower back pain (Acute) Dysuria (Acute) Complex regional pain syndrome of right lower extremity (Acute) Critical aortic valve stenosis (Acute) Chronic pain syndrome (Acute) Osteoarthritis of right knee (Acute) Memory difficulties (Acute) Osteoarthritis of left knee (Acute) Right knee pain (Acute) Other and unspecified hyperlipidemia (Acute) Conduction disorder of the heart (Acute) Non-rheumatic aortic stenosis (Acute) Annual physical exam (Acute) Osteoarthritis of right knee (Acute) Anemia (Acute) Ingrown toenail of both feet (Acute) Hyperlipidemia (Acute) Hyperglycemia (Acute) Aortic stenosis (Acute) Past Medical History Medical History Annual physical exam Osteoarthritis of right knee Anemia Ingrown toenail of both feet Hyperglycemia Aortic stenosis Right carpal tunnel syndrome Hyperlipidemia Family History Family History Father No problems noted. Mother No problems noted. Family history of problems with anesthesia: No Surgical History Surgical History S/P TAVR (transcatheter aortic valve replacement) (~03/2023) H/O colonoscopy History of Problems with Anesthesia: No Social History Social History Housing: House Alcohol intake: never Patient Tobacco Use Status: Never used Tobacco e-Cigarette/Vaping Use: Never Used Are you DNR?: No Advance Directives: No Advance Directives Information Provided: Yes Nutrition Risks: No Nutritional Risk Current occupational status: retired Cognitive needs: No Hearing needs: Yes Vision needs: Yes Meds Allergies Allergy/AdvReac Type Severity Reaction Status Date / Time No Known Allergies Allergy Verified 05/22/23 14:35 Active Medications: Current Medications Lactated Ringer's (Lr) 1,000 mls @ 100 mls/hr IVCONT .Q10H PENDING SALE TO [facility] Last Admin: 06/05/23 10:24 Dose: 100 mls/hr Home Medications Medication Instructions Recorded Confirmed Last Taken Type aspirin 81 mg tablet,delayed 81 mg PO DAILY 07/05/21 05/15/23 06/02/23 History release multivitamin 1 tab PO DAILY 07/05/21 05/15/23 Unknown History ibuprofen 200 mg tablet 200 mg PO Q6H PRN Pain 07/07/22 05/15/23 06/02/23 History Exam Height,Weight and Vital Signs: Height 5 ft 6 in Weight 96.7 kg Last Vital Signs Temp 97.3 F 06/05/23 09:58 Pulse 76 06/05/23 09:58 Resp 18 06/05/23 09:58 BP 129/76 06/05/23 09:58 Pulse Ox 98 06/05/23 09:58 O2 Del Method Room Air 06/05/23 09:58 Pertinent Lab Results Pertinent Lab Results: Laboratory Tests 06/05/23 09:40 Nasal Screen MRSA (PCR) NEGATIVE Nasal S. aureus Screen POSITIVE A Nasal MRSA/S.aureus Interp SEE NOTE Airway Mallampati Class: III TM Dist: >3cm Neck ROM: Full Denture: Upper Loose/Missing/Broken Teeth: Yes (upper denture, lower some implants some missing) Heart: [id number] Lungs: cta b/l Assessment and Plan Assessment Anesthesia Assessment: Anesthesia Plan Discussed and Chart Reviewed Final Anesthetic Review Family History of Problems with Anesthesia: No History of Problems with Anesthesia: No NPO: Yes ASA Class: III Final Preanesthetic Review: No Changes in Pt Med Stat, Meds/Allgs Chart Reviewed, Consent Obtained/Reviewed and Anes Risks/Benef Reviewed Patient Risk: Intermediate Procedure Risk: Intermediate Assessment/Block/Sedation in SS: Assess/Block/Sedation-SS Anesthetic Plan Anesthetic Plan: MAC: and Agree w/ Assess. and Plan Disposition: Standard PACU
--- NOTE | 2023-06-05 11:49 | PC.NURSE ---
prior going to or PATIENT VIODED IN THE URNAL 300ML YELLOW CLEAR URINE
[2023-06-05] MEDS: oxyCODONE HCl Immed Release 5 MG TABLET PO (15:49)
--- NOTE | 2023-06-08 14:25 | MHC.SHP ---
Pre-Procedural Eval Section A Date of Service: 06/05/23 The patient is an INPATIENT: No Changes since office visit: Yes Patient answered all questions The History & Physical has been completed within 30 days and I have reviewed it.: Yes Section B Chief Complaint: Wedge compression fx of first lumbar,dorsalgia Relevant Family History (Specify if Yes): No Relevant Social History: None Present Medications: see Short Stay Collaborative assessment Medical History: No relevant PMH History of Previous Operations: No relevant previous surgery Allergies: Allergies Allergy/AdvReac Type Severity Reaction Status Date / Time No Known Allergies Allergy Verified 05/22/23 14:35 Review of Systems Sugical H&P ROS: Negative: Constitution, Cardiovascular and Respiratory Exam Surgical H&P Exam: Normal: HEENT, Normal: Heart and Normal: Lungs Plan I have reviewed the history and physical and performed a pertinent physical examination on my patient. No changes have occurred unless specified. Time Spent With Patient Time: Total time managing care of this patient today ____ minutes.
--- NOTE | 2023-06-08 14:26 | W.PM.OPN ---
Operative Note Operative Note Date of Service: 06/05/23 Narrative: Kyphon Balloon Kyphoplasty with Insertion of HV-R Bone Cement, L1 and L2 Vertebral Body The patient was brought to the operating room and anesthesia was induced. The patient was positioned prone on the table. The back was prepped and draped. Two image intensifiers (C-arms) were brought into the AP and lateral positions and the L1-L2 pedicles were identified and marked with a skin marker. A transpedicular approach to the vertebral body was deemed appropriate. A spinal needle was advanced along the expected course of the introducer up to the pedicle and the tract was anesthetized with 0.25% bupivacaine with epinephrine. A stab incision was made 4 cm lateral to the pedicle with a 15 blade. A 10-gauge bevel introducer was advanced through the L1 pedicle to the junction of the pedicle and vertebral body on the left side first. Positioning was confirmed on the AP and lateral plane at regular intervals to ensure bevel position within the cortical boundaries of the pedicle until the body of the vertebra was accessed. Following satisfactory placement of the osteointroducer, the bevel tip was removed, leaving the cannula in place, positioned approximately 1 cm past the posterior vertebral body wall. Through the cannula, a drill was advanced into the vertebral body under fluoroscopic guidance toward the anterior cortex to create a channel, stopping approximately 3-5 mm posterior to the anterior cortical wall in the lateral view and approaching the ipsilateral edge of the spinous process in the AP view. The anterior cortex was probed with the guide pin to ensure no perforations in the anterior cortex. After completing the entry into the vertebral body, a 15 mm inflatable bone tamp was inserted through the cannula and advanced under fluoroscopic guidance into the vertebral body near the anterior cortex. The radiopaque marker bands on the bone tamp were identified using AP and lateral images and confirmed to be within the anterior 2/3rd of the body. . The above sequence of instrument placement was then repeated on the right side. Once both bone tamps were in position, they were inflated sequentially in increments of 0.25 to 0.5 cc of contrast, with careful attention being paid to the inflation pressures and balloon position. The inflation was monitored with AP and lateral imaging. The final balloon volume was 4 cc on the left and 4 cc on the right side. Maximum pressure applied on either side was approximately 100 psi. There was no breach of the lateral wall or anterior cortex of the vertebral body. Direct reduction of the fracture was achieved and end plate movement was noted. Under fluoroscopic imaging, and the use of the bone void fillers, internal fixation was achieved through a low-pressure injection of appropriately cured KYPHON HV-R methylmethacrylate bone cement. The cavity was filled with a total volume of 4cc on the left side and 4 cc on the right side. No vascular, disc or spinal extravasation of the cement was noted. Once the bone cement had hardened, the bevel tip was reinserted into each of the cannulas to clear it and they were were then removed. The same procedure as above was then repeated for the L2 level. Once the bone tamps were in position, they were inflated sequentially. The balloon volume on the left L2 side was 1 cc at a psi of 300 and on the right L2 side was 2 cc at a psi of 250. Under fluoroscopic imaging, internal fixation was achieved through a low-pressure injection of approximately 1.5 cc methyl methacrylate bone cement on the left side and 2 cc of the same on the right side. No vascular, disc or spinal extravasation of the cement was noted. Once the bone cement had hardened, the bevel tip was reinserted into each of the cannulas to clear it and they were then removed. Post-procedure, the incisions were closed with 4 silk sutures. The patient was kept in the prone position for approximately 10 minutes post cement injection. He was then turned supine and brought to the PACU. He was monitored supine for 2 hours prior to being discharged in stable condition. Estimated blood loss was rougly 25 mL.
--- NOTE | 2023-06-08 14:31 | P.BOP_ITS ---
Brief Operative Note Date of Service: 06/05/23 Pre-op diagnosis: Vertebral compression fracture, L1 and L2 Post-op diagnosis: same Procedure: Kyphon Balloon Kyphoplasty with Insertion of HV-R Bone Cement, L1-L2 Vertebral Body Surgeon: Tony Dixon MD Anesthesia: MAC Was an Civil [employer] Deputy Sheriff used for this Procedure?: No Estimated blood loss (mL): 25 Pathology: none sent Condition: stable Disposition: PACU
== END 2023-06-05 16:43 | disposition home or self-care (01) ==
PROVIDERS: Registered Nurse Emergency; PCP Internal Medicine; Visit Provider Internal Medicine
PROC: (CPT 22514; principal; 2023-06-05 11:30)
DX: S32.010A Wedge compression fracture of first lumbar vertebra, initial encounter for closed fracture (principal); S32.020A Wedge compression fracture of second lumbar vertebra, initial encounter for closed fracture; M54.50 Low back pain, unspecified; M51.36 Other intervertebral disc degeneration, lumbar region; W10.8XXA Fall (on) (from) other stairs and steps, initial encounter; Y93.39 Activity, other involving climbing, rappelling and jumping off; Y92.89 Other specified places as the place of occurrence of the external cause; Y99.8 Other external cause status; I35.0 Nonrheumatic aortic (valve) stenosis; M17.11 Unilateral primary osteoarthritis, right knee; D64.9 Anemia, unspecified; E78.5 Hyperlipidemia, unspecified; R73.9 Hyperglycemia, unspecified; Z79.82 Long term (current) use of aspirin
CPT/HCPCS: 22514; 22515; 87640; 87641; C1713; J0690; J2795; Q9967

== ENCOUNTER → 2023-06-05 09:13 | Outpatient (BNV) | payer MEDICARE, SELFPAY | PROVIDERS: PCP Internal Medicine; Visit Provider Internal Medicine | DX: M80.08XA Age-related osteoporosis with current pathological fracture, vertebra(e), initial encounter for fracture (principal) | CPT/HCPCS: 22514; 22515 ==

== ENCOUNTER 2023-06-19 08:16 | Outpatient (REF) | payer MEDICARE, SELFPAY ==
--- NOTE | ~2023-06-19 | XR_ITS ---
EXAMINATION: XR THORACIC SPINE CLINICAL INFORMATION: Postprocedural state. COMPARISON: Radiographs dated 05/22/2023. TECHNIQUE: 3 views of the thoracic spine were obtained. FINDINGS: There is no fracture or bone destruction seen and the vertebral alignment is normal. There is no disc space narrowing. The thoracic disc spaces are well-maintained. There is no abnormality of the paraspinal soft tissues. A TAVR stent is noted. XR/XR lumbar spine 2-3V IMPRESSION: 1. No acute fracture or spondylolisthesis is seen. 2. The thoracic disc spaces are well-maintained. 3. There is multi-level thoracic spondylosis. EXAMINATION: XR LUMBOSACRAL SPINE CLINICAL INFORMATION: Postprocedural state. COMPARISON: Radiographs dated 05/20/2023; MRI lumbar spine dated 05/27/2023. TECHNIQUE: AP and lateral views of the lumbar spine and lateral view of the lumbosacral junction. FINDINGS: There is bony demineralization. There are post kyphoplasty changes at L1 and L2, with moderate compression deformities, similar in extent to prior MRI imaging. There is disc space narrowing at T12-L1 and L1-L2. At L2-L3, there is a 6 mm retrolisthesis. There is multi-level spondylosis. The posterior elements are intact. There are aortoiliac atherosclerotic calcifications. IMPRESSION: 1. There are stable moderate L1 and L2 compression fractures status-post post kyphoplasty. 2. There is degenerative disc disease extending from T12-L1 through L2-L3. 3. There is multi-level lumbar spondylosis and facet arthropathy.
--- NOTE | ~2023-06-19 | XR_ITS ---
EXAMINATION: XR THORACIC SPINE CLINICAL INFORMATION: Postprocedural state. COMPARISON: Radiographs dated 05/22/2023. TECHNIQUE: 3 views of the thoracic spine were obtained. FINDINGS: There is no fracture or bone destruction seen and the vertebral alignment is normal. There is no disc space narrowing. The thoracic disc spaces are well-maintained. There is no abnormality of the paraspinal soft tissues. A TAVR stent is noted. XR/XR thoracic spine 3V IMPRESSION: 1. No acute fracture or spondylolisthesis is seen. 2. The thoracic disc spaces are well-maintained. 3. There is multi-level thoracic spondylosis. EXAMINATION: XR LUMBOSACRAL SPINE CLINICAL INFORMATION: Postprocedural state. COMPARISON: Radiographs dated 05/20/2023; MRI lumbar spine dated 05/27/2023. TECHNIQUE: AP and lateral views of the lumbar spine and lateral view of the lumbosacral junction. FINDINGS: There is bony demineralization. There are post kyphoplasty changes at L1 and L2, with moderate compression deformities, similar in extent to prior MRI imaging. There is disc space narrowing at T12-L1 and L1-L2. At L2-L3, there is a 6 mm retrolisthesis. There is multi-level spondylosis. The posterior elements are intact. There are aortoiliac atherosclerotic calcifications. IMPRESSION: 1. There are stable moderate L1 and L2 compression fractures status-post post kyphoplasty. 2. There is degenerative disc disease extending from T12-L1 through L2-L3. 3. There is multi-level lumbar spondylosis and facet arthropathy.
== END 2023-06-19 08:17 | disposition home or self-care (01) ==
LOC: HO.XRAY 08:16
PROVIDERS: PCP Internal Medicine; Visit Provider Nurse Practitioner Family
DX: M54.50 Low back pain, unspecified (principal); M51.36 Other intervertebral disc degeneration, lumbar region; M54.16 Radiculopathy, lumbar region; Z98.890 Other specified postprocedural states
CPT/HCPCS: 72072; 72100; 99212

== ENCOUNTER 2023-06-19 09:06 | Outpatient (AMB) | payer MEDICARE, SELFPAY ==
--- NOTE | 2023-06-19 09:07 | MHC.OFFVIS ---
Intake Vital Signs 06/19/23 09:11 Height 5 ft 9 in Weight 205 lb BMI 30.3 BP 133/95 H Blood Pressure Location Lt brachial Position Sitting Pulse 94 Pulse Source Pulse Oximeter Pulse Oximetry (%) 97 Oxygen Delivery Method Room Air Intake Visit Reasons: S/p Kyphoplasty of L1-L2 06/05/23 Intake Note: Pain today 10/10 Registered Vascular Technologist (Rvt) Required: No Accompanied by: Son Allergies No Known Allergies Allergy (Verified 06/19/23 09:12) HPI HPI Comments History of Present Illness Details Patient presents today for follow up status post Kyphoplasty of L1-L2 on 06/05/[address] Dixon. Patient reports improvement in his mid back pain since procedure but now presents with excruciating, debilitating low back pain that radiates into his right groin with pins and needles for the past 3 days. He reports ants walking over right groin with moderate-severe symptoms. Rates pain at 10/10. Patient denies any recent trauma, injury or falls. Lumbar flexion and extension reproduce his symptoms. He denies any groin pain or hip pain with provocative testing. Seated SLR testing reproduces low back and right groin pain. Patient also has reproduction of groin pain and low back pain on the right with Kade's testing. Today's thoracic and lumbar spine imaging were reviewed with patient, his son and Dr. Dixon. We will plan for low dose steroid Right L2-L3 TFESI injection as next steps. Also discussed neurosurgical evaluation for potential decompression but poor candidate for extensive spinal fusion surgery due to poor bone quality. Lumbar spine MRI findings prior to Kyphoplasty noted for multilevel degenerative changes and multiple spinal stenosis, notably L2-L3 moderate diffuse disc bulge with posterior osseous ridging, moderate to severe bilateral facet joint arthropathy with ligamentum flavum hypertrophy and a severe right worse than left neural foraminal stenosis. There is moderate spinal canal stenosis at L2-L3. Patient's symptoms correlate with MRI findings. Denies any fever, abdominal pain, weakness, bladder or bowel dysfunction or saddle anesthesia. Sutures x4 status post kyphoplasty were open to air and intact. No swelling, redness, tenderness, erythema, infection or pathological discharge noted. Family reports patient requested to remove dressing few days ago due to itching and irritation. Area was cleansed with Chloraprep. Sutures were removed today. Incision areas were cleansed again with Chloraprep, applied Bacitracin and covered it with gauze and Tegaderm film dressing. PRIOR: Patient is a pleasant 87 years old male status post [place] [facility] [place] presents today for mid-low back pain. Patient attributes back pain due to recent fall while climbing stairs at his gazebo about 2 weeks ago when he tripped going down stairs. Since then he has been in constant, slowly worsening pain which he describes as aching, sharp, dull and throbbing. Walking, standing, bending, twisting and any movements aggravate his pain. He is wearing a back brace and has been managing his pain with Tylenol and Ibuprofen with minimal pain relief. Patient lives alone and has local supportive family. He followed up with his PCP and was ordered a prednisone taper. Lumbar spine xray showed mild/moderate L1 and moderate/severe L2 vertebral body compression fractures and multilevel degenerative changes. Denies history of osteoporosis. Takes Aspirin 81 mg daily. Denies any fever, abdominal or groin pain, weakness, bladder or bowel dysfunction or saddle anesthesia. PRIOR: Patient is a 86 years old male with severe right tricompartmental knee OA presents today via telehealth encounter to assess response to Right Diagnostic Femoral Nerve Block on 10/14/[address] Carty. Patient's son Kevin is presents on telehealth visit today. Patient reprots 10% pain relief on the day of procedure and 30% pain relief the next day after the procedure. Patient reports his pain after injections was tolerable with walking until he had to climb stairs and could not continue walking due to severe exacerbation of right knee pain. Unfortunately, patient had mild pain relief with genicular nerve blocks as well as found no relief with NSAIDs, steroid injections, viscosupplementation, or PT, and he is not a surgical candidate per orthopedic surgeon. Patient is undergoing second cardiac evaluation in December regarding aortic stenosis. We discussed to undergo a repeat nerve blocks injections in order to establish reproducible response to treatment for potential peripheral nerve stimulation or genicular RFA. Patient and his son report they will think about this and request if patient can start pain medication to alleviate his pain. I have informed patient and his family that we do not offer opioid program at this time. Denies any recent cough, cold, infection, fever or other significant changes in medical history since last office visit. PRIOR 09/18/22 Dr. Carty: Herb is in the phone today to discuss the results of diagnostic right genicular nerve block which was performed on 09/16/2022. She reports that the during the 1st hour after the injection his pain was reduced about 40% from 7-8 out of 10 to 4 to 5/10. The 2nd hour after procedure she reported his pain 6/10 under 3rd hour after procedure the pain return to 7 to 8/10 the patient reports slight improvement in mobility however admits that the posterior surface of the knee got better pain relief (?) Compared to the front. In any case the results of the injections are not encouraging for any manipulation with genicular nerves. I think we need to perform diagnostic right-sided femoral nerve block. For this procedure he needs to be by a the relative because after the procedure the anterior surface of the hip muscles vastus lateralis, medialis and intermedius will be partially paralyzed. Prior:C/o on pain in the right knee. He reports that physical activity aggravates the pain of his knee. Started in the summer of 2021. He went orthopedic surgeon for consult and was referred for pain management because he has critical aortic stenosis. He manages his pain with exuberant doses of ibuprofen. He is also taking atorvastatin. He is living by himself and wants to perform all the activities in the house however the pain is not very conducive for this task. physical therapy aggravated his pain. He has images of his knee which are dictated as below. Past medical history is significant for critical aortic stenosis. [facility] Medical History Annual physical exam Osteoarthritis of right knee Anemia Ingrown toenail of both feet Hyperglycemia Aortic stenosis Right carpal tunnel syndrome Hyperlipidemia Surgical History S/P TAVR (transcatheter aortic valve replacement) (~03/2023) H/O colonoscopy Family History Father No problems noted. Mother No problems noted. Social History Housing: House Alcohol intake: never Patient Tobacco Use Status: Never used Tobacco e-Cigarette/Vaping Use: Never Used Current occupational status: retired Cognitive needs: No Hearing needs: Yes Vision needs: Yes Review of Systems Const All systems reviewed & are unremarkable except as noted in HPI and below Physical Exam Vital Signs: Last Vital Signs Pulse 94 06/19/23 09:11 BP 133/95 H 06/19/23 09:11 Pulse Ox 97 06/19/23 09:11 Oxygen Delivery Method Room Air 06/19/23 09:11 BMI result Body Mass Index 30.3 General: Appears afebrile. Acute moderate distress due to low back and right groin pain. Alert and oriented. Mood and affect appropriate. Follows and participates in conversation appropriately. Respiratory effort is unlabored. No cough. Able to transition from sit to stand unassisted. Uses cane with walking. Ambulates with bilaterally normal heel strike and toe off. Back/Spine/Pelvis Other: Mild tenderness to palpation in lower lumbar spine. No midline tenderness. No paraspinal tenderness to palpation in the thoracic or lumbar spine. Lumbar extension and flexion reproduces moderate symptoms. No groin pain with bilateral I/E hip rotations. Kade's test reproduce right groin and low back pain on the right. Suture x4 s/p kyphoplasty were removed. No redness, no swelling, no tenderness,and no pathological discharge. Back: back tenderness Cervical Spine: cervical ROM normal and No Cervical spine tenderness Thoracic/Lumbar Spine: thoracic and lumbar spine normal to inspection, Thoracic/lumbar spine scar(s), Lasegue's sign positive on the right and localized, pain with thoraco-lumbar ROM, paraspinal muscle tenderness, thoraco-lumbar ROM limited, No thoracic spinal tenderness and lumbar spinal tenderness Pelvis: buttock tenderness bilaterally Results Reviewed Results Reviewed: XR LUMBOSACRAL SPINE 05/18/23 CLINICAL INFORMATION: Low back pain COMPARISON: None available. FINDINGS: There are L1 and L2 vertebral body compression fractures, mild/moderate L1 and moderate/severe L2. L1 vertebral body compression fracture probably old. There is slight increased sclerosis along the superior endplate of the L1 body and this fracture may be more recent. Question sacral fracture, S4. Degenerative spondylosis at L2-L3 and L3-L4. Disc space narrowing at T12-L1, L1-L2 and L2-L3. Lower lumbar spine facet arthritis. Atherosclerotic disease. IMPRESSION: L1 and L2 vertebral body compression fractures. Degenerative changes. MR LUMBAR SPINE WITHOUT CONTRAST 05/27/23 CLINICAL INFORMATION: Wedge compression fracture of the 1st lumbar vertebra. COMPARISON: Lumbar spine radiographs from 05/18/2023 TECHNIQUE: MRI of the lumbar spine was obtained using routine sequences without contrast. FINDINGS: Is a compression deformities of the L1 and L2 vertebral bodies with there is no loss of L1 vertebral body heights and and 50% loss of L1 vertebral body height and 60% loss of L2 vertebral body heights. Persistent marrow edema throughout the L1 and L2 vertebral bodies as well as the bilateral L1 pedicles. Normal anatomic alignment. Normal, homogeneous marrow signal throughout. The vertebral body heights are maintained. The intervertebral discs are of normal height and signal. The conus medullaris terminates at the level of L2. The distal spinal cord is normal in appearance. No significant abnormalities of the paraspinal musculature. Limited evaluation of the intra-abdominal structures without significant abnormalities. The abdominal aorta is of normal contour and caliber. Retroaortic left renal vein. AXIAL SPINAL LEVELS: T12-L1: Moderate diffuse disc bulge with posterior osseous. There is moderate right and mild left facet joint. There is moderate bilateral neural foraminal stenosis. There is mild neural foraminal stenosis. L1-L2: Mild diffuse disc bulge with posterior osseous ridging. There is mild bilateral facet joint arthropathy. There is moderate left and mild right neural foraminal stenosis. There is no spinal canal stenosis. L2-L3: Moderate diffuse disc bulge with posterior osseous ridging. There is moderate to severe bilateral facet joint arthropathy with ligamentum flavum hypertrophy. There is severe right worse than left neural foraminal stenosis. There is moderate spinal canal stenosis. L3-L4: Moderate diffuse disc bulge. There is moderate to severe bilateral facet joint arthropathy. There is moderate bilateral neural foraminal stenosis. There is stenosis of the subarticular zones with moderate spinal canal stenosis centrally. L4-L5: Moderate diffuse disc bulge with superimposed central disc protrusion. There is moderate to severe bilateral facet joint arthropathy. There is moderate left and mild right neural foraminal stenosis. There is severe spinal canal stenosis right.. L5-S1: Mild disc bulge with superimposed small central disc protrusion. There is moderate bilateral facet joint arthropathy. There is moderate bilateral neural foraminal stenosis. There is narrowing of the subarticular zones with no overt spinal canal stenosis centrally. IMPRESSION: 1. Compression fractures of the L1 and L2 vertebral bodies with persistent marrow edema. 2. 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 Most notably, there are moderate to severe spinal canal stenoses from L2-L5. Moderate to severe neural foraminal stenoses from T12-S1. Assessment & Plan Assessment & Plan (1) Lumbar degenerative disc disease: Code(s): M51.36 - Other intervertebral disc degeneration, lumbar region (2) Lumbar radiculopathy, right: Code(s): M54.16 - Radiculopathy, lumbar region (3) Status post kyphoplasty: Code(s): Z98.890 - Other specified postprocedural states Plan Thoracic and lumbar xray results as well as review of lumbar spine MRI were discussed with patient and his son as well as with Dr. Dixon. We will plan for low dose steroid Right L2-L3 TFESI half steroid dose injection with local and fluoroscopy as next steps. Also discussed neurosurgical evaluation for potential decompression but poor candidate for extensive spinal fusion surgery due to poor bone quality. Patient's symptoms correlate with MRI findings. Expectations, risks and benefits were reviewed. Patient is aware he will be contacted to schedule this procedure. Sutures were s/p Kyphoplasty on 06/05/23 were removed today. Incisions well healing, no signs of infection, bleeding, tendern Short script provided for Tramadol and gabapen at bedtime for significant right sided back pain with radicular symptoms. Side effects and precautions has been reviewed with patient and his son. All questions were answered and the patient is in agreement of plan. Follow-up after injections and sooner as needed. Orders: Orders XR thoracic spine 3V Today M54.50 - Low back pain, unspecified, Z98.890 - Other specified postprocedural states XR lumbar spine 2-3V Today M54.50 - Low back pain, unspecified, Z98.890 - Other specified postprocedural states XR DEXA axial skeleton Today M51.36 - Other intervertebral disc degeneration, lumbar region, S32.010A - Wedge compression fracture of first lumbar vertebra, initial encounter for closed fracture, S32.020A - Wedge compression fracture of second lumbar vertebra, initial encounter for closed fracture, Z98.890 - Other specified postprocedural states Medications: New gabapentin 100 mg PO BEDTIME 30 caps 0RF pain M51.36 - Other intervertebral disc degeneration, lumbar region, M54.16 - Radiculopathy, lumbar region Changed From tramadol 50 mg PO BID 7 days PRN 14 tabs 0RF pain M54.50 - Low back pain, unspecified, S32.020A - Wedge compression fracture of second lumbar vertebra, initial encounter for closed fracture To tramadol 50 mg PO Q8H 10 days PRN 20 tabs 0RF pain M54.50 - Low back pain, unspecified, S32.020A - Wedge compression fracture of second lumbar vertebra, initial encounter for closed fracture Coding Level of Care Code Est Pt Level 4 (96700) Diagnoses Lumbar degenerative disc disease M51.36 Lumbar radiculopathy, right M54.16 Status post kyphoplasty Z98.890
[2023-06-19 09:11] VITALS: BP 133/95; PULSE 94; O2SAT 97; BMI 30.3
== END 2023-06-19 09:58 | disposition home or self-care (01) ==
PROVIDERS: PCP Internal Medicine; Visit Provider Nurse Practitioner Family
DX: M51.36 Other intervertebral disc degeneration, lumbar region (principal); M54.16 Radiculopathy, lumbar region; Z98.890 Other specified postprocedural states
CPT/HCPCS: 99214

== ENCOUNTER 2023-07-01 06:57 | Outpatient (REF) | payer MEDICARE, SELFPAY ==
--- NOTE | ~2023-07-01 | FL_ITS ---
EXAMINATION: XR FLUOROSCOPY WITH IMAGES CLINICAL INFORMATION: Radiculopathy, lumbar region. COMPARISON: Lumbar spine x-ray 06/19/2023 TECHNIQUE: Fluoroscopy Supervised By: Dr. Tony Dixon. Fluoroscopy Time: 21.6 seconds. Cumulative Dose: 14.43 mGy. DAP: Gycm2. Images: 4 FINDINGS: Images demonstrate needle and contrast injection adjacent to the right L3 vertebrae. There are compression fractures and kyphoplasty changes at L1 and L2 that appear unchanged. FL/FL guidance in treatment room IMPRESSION: Fluoroscopic guidance for management procedure.
== END 2023-07-01 06:58 | disposition home or self-care (01) ==
LOC: CF 06:57
PROVIDERS: Visit Provider Internal Medicine
DX: M54.16 Radiculopathy, lumbar region (principal)
CPT/HCPCS: 64483; J1100; Q9967

== ENCOUNTER 2023-07-01 10:10 | Outpatient (AMB) | payer MEDICARE, SELFPAY ==
[2023-07-01 10:15] VITALS: BP 110/60; PULSE 70; RESP 12; O2SAT 97
--- NOTE | 2023-07-01 10:15 | MHC.OFFVIS ---
Intake Vital Signs 07/01/23 10:15 07/01/23 11:02 BP 110/60 120/62 Blood Pressure Location Lt brachial Lt brachial Position Sitting Sitting Respiration 12 12 Pulse 70 76 Pulse Source Pulse Oximeter Pulse Oximeter Pulse Oximetry (%) 97 97 Oxygen Delivery Method Room Air Room Air Intake Visit Reasons: Right L2-L3 TFESI *HALF DOSE STEROID* Allergies No Known Allergies Allergy (Verified 07/01/23 10:15) HPI Right L2-L3 TFESI *HALF DOSE STEROID* HPI Details Patient presents for scheduled procedure. Denies any recent cough, cold, infection, fever or other significant changes in medical history since last office visit. [facility] Medical History (Reviewed 06/05/23 @ 11: by Carl Monzon MD) Annual physical exam Osteoarthritis of right knee Anemia Ingrown toenail of both feet Hyperglycemia Aortic stenosis Right carpal tunnel syndrome Hyperlipidemia Surgical History (Reviewed 06/05/23 @ 11: by Carl Monozn MD) S/P TAVR (transcatheter aortic valve replacement) (~03/2023) H/O colonoscopy Family History (Reviewed 06/05/23 @ 11: by Carl Monzon MD) Father No problems noted. Mother No problems noted. Social History (Reviewed 06/05/23 @ 11: by Carl Monzon MD) Housing: House Alcohol intake: never Patient Tobacco Use Status: Never used Tobacco e-Cigarette/Vaping Use: Never Used Current occupational status: retired Cognitive needs: No Hearing needs: Yes Vision needs: Yes Physical Exam Vital Signs: Last Vital Signs Pulse 76 07/01/23 11:02 Resp 12 07/01/23 11:02 BP 120/62 07/01/23 11:02 Pulse Ox 97 07/01/23 11:02 Oxygen Delivery Method Room Air 07/01/23 11:02 Office Procedures Details: Transforaminal epidural steroid injection, Right L2 After obtaining written consent, pre-procedure blood pressure and heart rate were stable and recorded in the nursing record. The patient was placed in the prone position on the fluoroscopy table. The lumbosacral area was prepped with chloraprep, allowed to dry and draped in sterile fashion. Using fluoroscopy, the skin overlying our target was anesthetized with 0.5% lidocaine. A 22 gauge 3.5 inch spinal needle was advanced to the safe triangle in the upper pole of the right L2 foramen. No paresthesias were elicited with needle placement and aspiration was negative for blood and CSF. Correct needle position was confirmed with approximately 1 ml contrast dye (Omnipaque 300 mg/ml) injected under real-time fluoroscopy. No evidence of vascular or intrathecal uptake was seen and there was both epidural and peripheral spread of the contrast agent. 6 mg dexamethasone plus 1 ml containing 0.5% lidocaine was slowly injected. The needle was flushed and removed. The skin was cleansed and a sterile bandages were applied. The patient tolerated the procedure well and no complications were encountered. Following the procedure the patient's vital signs were stable. The patient was discharged home in good condition with post-procedural instructions. Time Out: Immediately prior to the procedure, the following was verbally confirmed that there is a signed consent form and that the correct patient, planned procedure, site and side are consistent with documentation and that necessary equipment and/or blood products are available prior to the start of the case. Complications: none EBL: <5 cc 18342 - Lumbar/Sacral Procedure code (CPT) selection complete Assessment & Plan Assessment & Plan (1) Lumbar radiculopathy, right: Code(s): M54.16 - Radiculopathy, lumbar region Plan Patient is status post right L2/3 TFESI. Patient tolerated procedure well and was discharged home in stable condition with discharge instructions. All questions were answered. We will follow-up via telephone or in clinic to assess response to therapy. A follow-up appointment was made during today's visit. If no differences noted from this procedure, we may have to consider a right L2 foraminotomy. Orders: Orders FL guidance in treatment room Today M54.16 - Radiculopathy, lumbar region Coding Level of Care Code Procedure Only Diagnoses Lumbar radiculopathy, right M54.16 CPT Codes Transforaminal Epidural Steroid Inj - TESI 3: 73509 - Lumbar/Sacral ([id number])
[2023-07-01 11:02] VITALS: BP 120/62; PULSE 76; RESP 12; O2SAT 97
== END 2023-07-01 10:57 | disposition home or self-care (01) ==
LOC: HO.PMCPRC 10:10
PROVIDERS: PCP Internal Medicine; Visit Provider Internal Medicine
DX: M54.16 Radiculopathy, lumbar region (principal)
CPT/HCPCS: 64483

== ENCOUNTER 2023-07-04 08:41 | Outpatient (REF) | payer MEDICARE, SELFPAY ==
[2023-07-04 11:01] LABS: MANUAL DIFF FLAG NO
[2023-07-04 11:04] LABS: Basophils Percent Auto 0.4 % (0-2); Eosinophils Absolute Auto 0.2 X10*3/uL (0.0-0.4); Eosinophils Percent Auto 4.2 % (0-4); Hematocrit 38.8 % (42.0-52.0); Hemoglobin 13.4 g/dl (14.0-18.0); Imm Gran Abs Auto 0.01 X10*3/uL (0.00-0.03); Imm Gran Pct Auto 0.2 % (0.0-0.4); Lymphocytes Absolute Auto 1.6 X10*3/uL (1.2-4.9); Lymphocytes Percent Auto 31.3 % (20-40); Mean Corpuscular HGB Conc 34.5 g/dl (31.0-36.0); Mean Corpuscular Hemoglobin 32.4 pg (27.0-33.0); Mean Corpuscular Volume 93.9 fL (80.0-98.0); Monocytes Absolute Auto 0.5 X10*3/uL (0.1-1.2); Monocytes Percent Auto 10.6 % (2-11); Neutrophils Absolute Auto 2.7 x10*3/uL (2.0-8.3); Neutrophils Percent Auto 53.3 % (45-73); Red Blood Count 4.13 X10*6/uL (4.60-5.80); Red Cell Distribution Width 13.1 % (11.0-16.0)
[2023-07-04 11:16] LABS: Estimated Average Glucose 120 mg/dL; Hemoglobin A1c % 5.8 % (<6.0)
[2023-07-04 11:24] LABS: Alanine Aminotransferase 19 U/L (0-40); Albumin Level 3.8 g/dL (3.5-5.0); Alkaline Phosphatase 81 U/L (39-117); Anion Gap 12 (12-20); Aspartate Amino Transferase 21 U/L (5-37); Bilirubin Total 0.6 mg/dL (0.0-1.0); Blood Urea Nitrogen 24 mg/dL (9-16); Calcium 9.4 mg/dL (8.4-10.2); Carbon Dioxide 28 mmol/L (22-29); Chloride 108 mmol/L (96-108); Cholesterol 129 mg/dL (<200); Estimated Glomerular Filt Rate > 60; Glucose Fasting 112 mg/dL (60-99); HDL Cholesterol 44 mg/dL (>40); LDL Cholesterol Calculated 71 mg/dL (<100); Potassium 4.9 mmol/L (3.3-5.1); Sodium 143 mmol/L (135-145); Total Protein 6.6 g/dL (6.5-8.0); Triglycerides 71 mg/dL (<150)
[2023-07-04 11:36] LABS: Mean Platelet Volume 10.4 fL (9.4-12.4); Platelet Count 99 X10*3/uL (160-400)
[2023-07-04 11:37] LABS: PSA,Total (Free>4and<10) 3.55 ng/mL (0.00-4.00)
== END 2023-07-04 08:42 | disposition home or self-care (01) ==
LOC: HO.HMGCLDS 08:41
PROVIDERS: PCP Internal Medicine; Visit Provider Internal Medicine
DX: E78.5 Hyperlipidemia, unspecified (principal); R73.9 Hyperglycemia, unspecified; I35.0 Nonrheumatic aortic (valve) stenosis; Z12.5 Encounter for screening for malignant neoplasm of prostate
CPT/HCPCS: 36415; 80053; 80061; 83036; 84153; 85025

== ENCOUNTER 2023-07-08 08:21 | Outpatient (AMB) | payer MEDICARE, SELFPAY ==
[2023-07-08 08:24] VITALS: BP 128/64; PULSE 82; O2SAT 97; BMI 32.0
--- NOTE | 2023-07-08 08:27 | AM.OFFVISMDC ---
Intake Vital Signs 07/08/23 08:24 07/08/23 08:34 Height 5 ft 9 in Weight 217 lb BMI 32.0 32.0 BP 128/64 Blood Pressure Location Lt brachial Position Sitting Pulse 82 Pulse Source Pulse Oximeter Pulse Oximetry (%) 97 Oxygen Delivery Method Room Air Intake Visit Reasons: SWV G0439 Allergies No Known Allergies Allergy (Verified 07/08/23 08:29) HPI SWV G0439 HPI Details Pt presents for annual. Patient complains of chronic lower back pain worse when sitting or standing for long time. Patient denies pain radiating to lower extremities, weakness or numbness in extremities. He underwent cortisone injection and kyphoplasty for the vertebral L 2 compression fracture without significant relief, Initiated the conversation about Advanced Directives. Advanced Directives help? patients prepare for current and future decisions about their medical treatment? and place of care. Discussed with patient that it is a process where a patients? current condition and prognosis are reviewed, their wishes for information? regarding their illness are elicited, and likely medical dilemmas are presented? and options discussed. The form can be amended as needed, reviewed yearly and? make changes as needed IPPE/AWV ? year old presents? for her ? Annual? Wellness Visit, initial visit.? Medical / Social History Reviewed? Past Medical History ?Yes? . ? [facility]? of Care / Care Team list updated ?Yes . ? Surgical/Hospitalization? History ?Yes . ? Current Medications? (including OTC and supplements) ?Yes . ? Family History ?Yes? . ? Tobacco? Control form ?Yes . ? AUDIT-C (Alcohol use) form? ?Yes . ? Illicit drug use in Social? History ?Yes . ? Current diagnosis of? depression? ?No ? Appropriate PHQ2/PHQ9? completed ?Yes . ? Data entered by ?Medical? Real Estate Sales Manager and reviewed by provider ? Fall Risk ? Fall? History? Have you had any falls with? injury in the past year? ?No . ? Have you had two or more? falls in the past year? ?No . ? Fall Risk Assessment: ?No? falls in the past year . ? HRA filled out by? the patient, reviewed by Provider and scanned. ? IPPE/AWV ? Balance? Romberg? ?Yes . ? Tandem? walk ?Yes . ? Walk and? Turn ?Yes . ? Rise from? sit to stand ?Yes . ?Vision? Corrective? lens ?Yes ? Vision? screen ? Up-to-date, has an appointment [] for vision? screening and glaucoma screening ?Hearing? Whisper? test ?pass .? Initiated the conversation about Advanced Directives. Advanced Directives help? patients prepare for current and future decisions about their medical treatment? and place of care. Discussed with patient that it is a process where a patients? current condition and prognosis are reviewed, their wishes for information? regarding their illness are elicited, and likely medical dilemmas are presented? and options discussed. The form can be amended as needed, reviewed yearly and? make changes as needed Written? Plan?Completed. See Patient? Documents. [facility] Medical History (Updated 07/08/23 @ 09:31 by Estee Butler MD) Annual physical exam Osteoarthritis of right knee Anemia Ingrown toenail of both feet Hyperglycemia Aortic stenosis Right carpal tunnel syndrome Hyperlipidemia Surgical History (Updated 06/18/23 @ 15:47 by LINSEY Tan) S/P TAVR (transcatheter aortic valve replacement) (~03/2023) H/O colonoscopy Family History Father No problems noted. Mother No problems noted. Social History Housing: House Alcohol intake: never Patient Tobacco Use Status: Never used Tobacco e-Cigarette/Vaping Use: Never Used Current occupational status: retired Cognitive needs: No Hearing needs: Yes Vision needs: Yes Questionnaire Medicare Wellness Checkup What is your age?: 81 or older What gender do you identify with?: male During the past 4 weeks, how much have you been bothered by emotional problems such as feeling anxious, depressed, irritable, sad or downhearted, and blue?: moderately During the past 4 weeks, has your physical & emotional health limited your social activities with family, friends, neighbors, or groups?: extremely During the past 4 weeks, how much bodily pain have you generally had?: severe pain During the past 4 weeks, was someone available to help you if you needed & wanted help?: yes, quite a bit During the past 4 weeks, what was the hardest physical activity you could do for at least 2 minutes?: moderate Can you get to places out of walking distance without help? (For eg., can you travel alone on buses, taxis or drive your car?): Yes Can you go shopping for groceries or clothes without someone's help?: Yes Can you prepare your own meals?: Yes Can you do your housework without help?: Yes Because of any health problems, do you need the help of another person with your personal care needs such as eating, bathing, dressing or getting around the house?: Yes Can you handle your own money without help?: Yes During the past 4 weeks, how would you rate your health in general?: poor During the past 4 weeks how have things been going for you?: pretty bad Are you having difficulties driving your car?: sometimes Do you always fasten your seat belt when you are in a car?: yes, usually During past 4 weeks, have you been bothered by the following: never: Falling or dizzy when standing up, Sexual problems? and Problems using the telephone?, seldom: Teeth or denture problems?, sometimes: Trouble eating well? and often: Tiredness or fatigue? Have you fallen 2 or more times in the past year?: Yes Are you afraid of falling?: Yes Are you a smoker?: no During the past 4 weeks, how many drinks of wine, beer, or other alcoholic beverages did you have?: 1 drink or less per week Do you exercise for about 20 minutes 3 or more times a week?: no, I usually do not exercise this much Have you been given information to help with the following?: no: Hazards in your house that might hurt you? and no: Keeping track of your medications? How often do you have trouble taking medicines the way you have been told to take them?: I always take medicine as prescribed How confident are you that you can control & manage most of your health problems?: not very confident What is your race?: White Mini Mental State Exam (MMSE) Orientation What is the (year) (season) (date) (day) (month)?: year, season, date, day and month Where are we (state) (county) (town or city) (hospital) (floor)?: state, county, town or city, hospital/clinic and floor Registration Name of 3 unrelated objects clearly and slowly, then ask patient to repeat all 3 of them. (1st repeat determines score. Make sure they can repeat all three): object 1, object 2 and object 3 Recall Ask patient to repeat the 3 items from question #3.: object 1, object 2 and object 3 Language Show patient a wristwatch & ask what it is. Repeat for pencil.: watch and pencil Ask the patient to repeat the phrase 'No ifs, ands, or buts' after you.: correct Ask the patient to 'take a piece of paper with their right hand' 'fold paper in half' 'place paper on floor': take paper in right hand, fold paper in half and place paper on floor Print the sentence 'CLOSE YOUR EYES' on a piece. If patient actually closes eyes then score.: followed written direction Give patient a blank piece of paper & ask to write a sentence. Score if it contains a noun & verb.: sentence contains subject and verb Score Score: 24 Activity of Daily Living Bathing - sponge bath, tub bath or shower: receives no assistance (gets in/out by self, if usual bathing means Dressing - getting clothes from closets & drawers, including inner/outer garments & fasteners.: gets clothes & gets completely dressed without help Toileting - going to the 'toilet room' for urine/bowel elimination & cleaning self/arranging clothes: goes to toilet room, cleans self, arranges clothes without help Transfer: moves in & out of bed and chair without help (may use support object) Continence: controls urination/bowel movements completely by self Feeding: feeds self without help Total Score: 0 Information obtained from: informant Using telephone: independent Traveling: needs assistance Shopping: needs assistance Preparing meals: independent Housework: needs assistance Taking medicine: independent Managing money: independent PHQ-9 Over the last 2 weeks, how often have you been bothered by any of the following problems? 1. Little interest or pleasure in doing things: more than half the days 2. Feeling down, depressed, or hopeless: more than half the days 3. Trouble falling or staying asleep, or sleeping too much: several days 4. Feeling tired or having little energy: several days 5. Poor appetite or overeating: several days 6. Feeling bad about yourself - or that you are a failure or have let yourself or your family down: several days 7. Trouble concentrating on things, such as reading the newspaper or watching television: not at all 8. Moving or speaking so slowly that other people could have noticed. Or the opposite - being so fidgety or restless that you have been moving around a lot more than usual: more than half the days 9. Thoughts that you would be better off or of hurting yourself in some way: more than half the days Total score: 12 Depression Screening Interpretation: Positive Depression Screening Done: Yes 62472 - PHQ-9 Billing: Yes Source: Developed by Drs. Shashank L. KaylanGeorgina nesbitt, Sarthak Askew and colleagues, with an educational luther from [employer]. Review of Systems Const All systems reviewed & are unremarkable except as noted in HPI and below Reports no additional complaints Eyes Reports no additional complaints ENT Reports no additional complaints Card Reports no additional complaints Resp Reports no additional complaints GI Reports no additional complaints Reports no additional complaints Physical Exam Vital Signs: Last Vital Signs Pulse 82 07/08/23 08:24 BP 128/64 07/08/23 08:24 Pulse Ox 97 07/08/23 08:24 Oxygen Delivery Method Room Air 07/08/23 08:24 BMI result Body Mass Index 32.0 Const General: no acute distress HEENT Head: Yes normal to inspection Ears: hearing grossly normal bilaterally Eyes General: appearance normal, both eyes and all related structures Neck Neck: Yes no lymphadenopathy and Yes supple Resp Effort & Inspection: normal respiratory effort Auscultation: clear to auscultation bilaterally Cardio Rhythm: regular rhythm Heart sounds: S1 normal heart sound present and S2 normal heart sound present GI Inspection: Yes normal to inspection Palpation (GI): Soft to palpation Percussion: Yes normal to percussion Auscultation: normal bowel sounds Back/Spine/Pelvis Other: There is spinal and lparaspinal tenderness in the mid lumbar region, straight leg rising 90 degrees bilaterally, motor strength 5/5 in lower extremities bilaterally Extrem General: Yes no clubbing, cyanosis or edema Assessment & Plan Assessment & Plan (1) Lumbar radiculopathy, right: Code(s): M54.16 - Radiculopathy, lumbar region Plan: PT was recommended but patient declined. He was advised to increase lower back stretching and walking as tolerates (2) Hyperglycemia: Code(s): R73.9 - Hyperglycemia, unspecified Plan: A1c was 5.8, ADA diet increase physical activity weight loss discussed with the patient (3) Hyperlipidemia: Code(s): E78.5 - Hyperlipidemia, unspecified Plan: Continue stat (4) Aortic stenosis: Comment: Severe peak gradient 64 mmHg, s/p TAVR 04/11 Code(s): I35.0 - Nonrheumatic aortic (valve) stenosis Plan: Significantly improved after TAVR follow-up with Cardiology (5) Anemia: Code(s): D64.9 - Anemia, unspecified Plan: Check iron studies and B12 level (6) BPH (benign prostatic hyperplasia): Comment: Increased urination after Flomax Code(s): N40.0 - Benign prostatic hyperplasia without lower urinary tract symptoms Plan: Patient will stop Flomax for 1 month and have bladder ultrasound to check for residual volume to rule out significant urinary retention (7) Compression fracture of L2 lumbar vertebra: Comment: After fall from a ladder, s/p kyphoplasty 05/11 no relief Code(s): S32.020A - Wedge compression fracture of second lumbar vertebra, initial encounter for closed fracture Plan: Patient was encouraged to increase physical activity and lower back stretches. There is no significant improvement with gabapentin. He will follow-up with pain management. Orders: Orders US abdomen complete Today R10.9 - Unspecified abdominal pain US bladder 1 Month N40.0 - Benign prostatic hyperplasia without lower urinary tract symptoms Vitamin B12 and Folate 3 Months D69.6 - Thrombocytopenia, unspecified, I35.0 - Nonrheumatic aortic (valve) stenosis, N40.0 - Benign prostatic hyperplasia without lower urinary tract symptoms, S32.020A - Wedge compression fracture of second lumbar vertebra, initial encounter for closed fracture Comprehensive [place]. Panel Fast 3 Months D69.6 - Thrombocytopenia, unspecified, I35.0 - Nonrheumatic aortic (valve) stenosis, N40.0 - Benign prostatic hyperplasia without lower urinary tract symptoms, R73.9 - Hyperglycemia, unspecified, S32.020A - Wedge compression fracture of second lumbar vertebra, initial encounter for closed fracture Complete Blood Count Auto Diff 3 Months D69.6 - Thrombocytopenia, unspecified, I35.0 - Nonrheumatic aortic (valve) stenosis, N40.0 - Benign prostatic hyperplasia without lower urinary tract symptoms, S32.020A - Wedge compression fracture of second lumbar vertebra, initial encounter for closed fracture IRON PROFILE 3 Months D69.6 - Thrombocytopenia, unspecified, I35.0 - Nonrheumatic aortic (valve) stenosis, N40.0 - Benign prostatic hyperplasia without lower urinary tract symptoms, S32.020A - Wedge compression fracture of second lumbar vertebra, initial encounter for closed fracture Quality Reporting (2019) Depression/Bipolar (159/160/161/177) PHQ-9: Total score: 12 Coding Level of Care Code Medicare Subsequent (G0439) Diagnoses Lumbar radiculopathy, right M54.16 Hyperglycemia R73.9 Hyperlipidemia E78.5 Aortic stenosis I35.0 Anemia D64.9 BPH (benign prostatic hyperplasia) N40.0 Compression fracture of L2 lumbar vertebra S32.020A CPT Codes Advance Care Planning - Time spent: 1-15 minutes, not on file ([id number]) Advance Care Planning Forms completed: Health Care Proxy Time spent: 1-15 minutes, not on file
[2023-07-08 08:34] VITALS: BMI 32.0
== END 2023-07-08 09:22 | disposition home or self-care (01) ==
PROVIDERS: PCP Internal Medicine; Visit Provider Internal Medicine
DX: Z00.00 Encounter for general adult medical examination without abnormal findings (principal); M54.16 Radiculopathy, lumbar region; S32.020A Wedge compression fracture of second lumbar vertebra, initial encounter for closed fracture; R73.9 Hyperglycemia, unspecified; E78.5 Hyperlipidemia, unspecified; I35.0 Nonrheumatic aortic (valve) stenosis; D64.9 Anemia, unspecified; N40.0 Benign prostatic hyperplasia without lower urinary tract symptoms
CPT/HCPCS: 1124F; G0439

== ENCOUNTER 2023-07-17 08:55 | Outpatient (REF) | payer MEDICARE, SELFPAY ==
--- NOTE | ~2023-07-17 | MM_ITS ---
EXAMINATION: BONE DENSITOMETRY CLINICAL INDICATION: Other specified postprocedural states. COMPARISON: This is the patient's baseline examination. TECHNIQUE: Using a [employer] DXA System (software version: 13.1) manufactured by [employer], dual-energy x-ray absorptiometry was performed of the lumbar spine, left hip, and left forearm radius 33%. The images are of good technical quality. Summary results are attached. FINDINGS: LEFT FEMUR, NECK: BMD 1.041 g/cm2, Z-score 1.2, T-score -0.2, normal. LEFT FEMUR, TOTAL: BMD 1.038 g/cm2, Z-score 0.7, T-score -0.4, normal. AP SPINE L3-L4 (excluding L1 and L2): The data of L1-L4 has been changed to exclude the L1 and L2 vertebral bodies, because increased density from previous kyphoplasty at these levels may cause overestimation of lumbar spine density. BMD 1.175 g/cm2, Z-score -0.2, T-score -0.5, normal. LEFT FOREARM RADIUS 33%: BMD 0.956 g/cm2, Z-score 1.1, T-score -0.3, normal. IDENTIFIED RISK FACTORS: Recurrent falls, history of fracture (adult). HISTORY OF FRACTURE: Spine. MEDICATIONS: Calcium. MM/XR DEXA appendicular skeleton IMPRESSION: 1. DIAGNOSIS: Normal bone density based on the lowest T-score value of -0.5 in the lumbar spine applying World Health Organization criteria. 2. 10-YEAR FRACTURE RISK PREDICTION, FRAX: According to the guidelines, FRAX calculation should only be performed on patients in the osteopenia bone density category. Therefore, FRAX was not performed on this patient. 3. Treatment Recommendations: NOF guidelines recommend consideration for treatment in postmenopausal women and men age 50 and older presenting with the following: -A hip or vertebral (clinical or morphometric) fracture. -T-score less than or equal to -2.5 at the femoral neck or spine after appropriate evaluation to exclude secondary causes. -Low bone mass at the hip or spine and a 10-year fracture probability by FRAX of greater than or equal to 3% for hip fracture or greater than or equal to 20% for major osteoporotic fracture based on the [place] adapted WHO algorithm. 4. Other Recommendations: All treatment decisions require clinical judgment and consideration of individual patient factors, including patient preferences, comorbidities, previous drug use, risk factors not captured in the FRAX model (e.g. frailty, falls, vitamin D deficiency, increased bone turnover, interval significant decline in bone density) and possible under or overestimation of fracture risk by FRAX. FUTURE SCAN RECOMMENDATION: People with diagnosed cases of osteoporosis or at high risk for fracture should have regular bone mineral density tests. For patients eligible for Medicare, routine testing is allowed once every 2 years. The testing frequency can be increased to one year for patients who have rapidly progressing disease, those who are receiving or discontinuing medical therapy to restore bone mass, or have additional risk factors.
== END 2023-07-17 08:56 | disposition home or self-care (01) ==
LOC: HO.MAMMO 08:55
PROVIDERS: PCP Internal Medicine; Visit Provider Nurse Practitioner Family
DX: S32.010A Wedge compression fracture of first lumbar vertebra, initial encounter for closed fracture (principal); S32.020A Wedge compression fracture of second lumbar vertebra, initial encounter for closed fracture; M51.36 Other intervertebral disc degeneration, lumbar region; Z98.890 Other specified postprocedural states
CPT/HCPCS: 77081

== ENCOUNTER 2023-07-28 09:13 | Outpatient (REF) | payer MEDICARE, SELFPAY ==
--- NOTE | ~2023-07-28 | XR_ITS ---
EXAMINATION: XR BILATERAL HIPS WITH AP PELVIS CLINICAL INFORMATION: Right hip pain. COMPARISON: None available. TECHNIQUE: AP view of the pelvis and AP and frog lateral views of each hip were obtained. FINDINGS: Bony alignment and mineralization are normal. The right acetabular joint space is well-maintained. There is moderate narrowing of the left acetabular joint space medially. The femoral heads are smooth. No fracture or dislocation is seen. The sacroiliac joints are symmetric and well-maintained, and the pubic symphysis is intact. There are multiple pelvic phleboliths. 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 No fracture or dislocation is seen.
== END 2023-07-28 09:14 | disposition home or self-care (01) ==
LOC: HO.XRAY 09:13
PROVIDERS: PCP Internal Medicine; Visit Provider Nurse Practitioner Family
DX: M25.551 Pain in right hip (principal); M54.16 Radiculopathy, lumbar region; M51.36 Other intervertebral disc degeneration, lumbar region; M48.061 Spinal stenosis, lumbar region without neurogenic claudication; M17.11 Unilateral primary osteoarthritis, right knee
CPT/HCPCS: 73521; 99212

== ENCOUNTER 2023-07-28 09:13 | Outpatient (AMB) | payer MEDICARE, SELFPAY ==
--- NOTE | 2023-07-28 09:20 | MHC.OFFVIS ---
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 Dixon. Patient reports very minimal improvement in his right sided radicular symptoms. He continues to reports numbness and tingling and ants in the projection of right lateral buttock into his lateral hip and groin with walking and bending. We will obtain hip imaging to assess for degenerative changes and degree of arthritis in his hip joints and proceed with Neurosurgical evaluation for evaluation for right L2 foraminotomy. Patient reports low dose gabapentin has been well tolerated and allows him to sleep better at night. He also has right knee pain with walking and climbing stairs. He has been treating this with NSAIDs, ice packs and knee bracing. Patient also reports abdominal pain and has seen his PCP for this. He is scheduled to undergo abdominal imaging this week. Denies any fever, chills, weight loss, chest pain, shortness of breaths, dizziness, foot drop, weakness, bladder or bowel dysfunction or saddle anesthesia. Past Procedures: 07/01/23: Right L2 TFESI with 1/2 dose steroid-minimal pain relief 06/05/23: L1-L2 Kyphoplasty- minimal relief PRIOR: Patient presents today for follow up status post Kyphoplasty of L1-L2 on 06/05/[address] Dixon. Patient reports improvement in his mid back pain since procedure but now presents with excruciating, debilitating low back pain that radiates into his right groin with pins and needles for the past 3 days. He reports ants walking over right groin with moderate-severe symptoms. Rates pain at 10/10. Patient denies any recent trauma, injury or falls. Lumbar flexion and extension reproduce his symptoms. He denies any groin pain or hip pain with provocative testing. Seated SLR testing reproduces low back and right groin pain. Patient also has reproduction of groin pain and low back pain on the right with Kade's testing. Today's thoracic and lumbar spine imaging were reviewed with patient, his son and Dr. Dixon. We will plan for low dose steroid Right L2-L3 TFESI injection as next steps. Also discussed neurosurgical evaluation for potential decompression but poor candidate for extensive spinal fusion surgery due to poor bone quality. Lumbar spine MRI findings prior to Kyphoplasty noted for multilevel degenerative changes and multiple spinal stenosis, notably L2-L3 moderate diffuse disc bulge with posterior osseous ridging, moderate to severe bilateral facet joint arthropathy with ligamentum flavum hypertrophy and a severe right worse than left neural foraminal stenosis. There is moderate spinal canal stenosis at L2-L3. Patient's symptoms correlate with MRI findings. Denies any fever, abdominal pain, weakness, bladder or bowel dysfunction or saddle anesthesia. Sutures x4 status post kyphoplasty were open to air and intact. No swelling, redness, tenderness, erythema, infection or pathological discharge noted. Family reports patient requested to remove dressing few days ago due to itching and irritation. Area was cleansed with Chloraprep. Sutures were removed today. Incision areas were cleansed again with Chloraprep, applied Bacitracin and covered it with gauze and Tegaderm film dressing. PRIOR: Patient is a pleasant 87 years old male status post recent transfemoral TAVR procedure at [facility] [place] on 04/09/23 presents today for mid-low back pain. Patient attributes back pain due to recent fall while climbing stairs at his gazebo about 2 weeks ago when he tripped going down stairs. Since then he has been in constant, slowly worsening pain which he describes as aching, sharp, dull and throbbing. Walking, standing, bending, twisting and any movements aggravate his pain. He is wearing a back brace and has been managing his pain with Tylenol and Ibuprofen with minimal pain relief. Patient lives alone and has local supportive family. He followed up with his PCP and was ordered a prednisone taper. Lumbar spine xray showed mild/moderate L1 and moderate/severe L2 vertebral body compression fractures and multilevel degenerative changes. Denies history of osteoporosis. Takes Aspirin 81 mg daily. Denies any fever, abdominal or groin pain, weakness, bladder or bowel dysfunction or saddle anesthesia. PRIOR: Patient is a 86 years old male with severe right tricompartmental knee OA presents today via telehealth encounter to assess response to Right Diagnostic Femoral Nerve Block on 10/14/[address] Carty. Patient's son Kevin is presents on telehealth visit today. Patient reprots 10% pain relief on the day of procedure and 30% pain relief the next day after the procedure. Patient reports his pain after injections was tolerable with walking until he had to climb stairs and could not continue walking due to severe exacerbation of right knee pain. Unfortunately, patient had mild pain relief with genicular nerve blocks as well as found no relief with NSAIDs, steroid injections, viscosupplementation, or PT, and he is not a surgical candidate per orthopedic surgeon. Patient is undergoing second cardiac evaluation in December regarding aortic stenosis. We discussed to undergo a repeat nerve blocks injections in order to establish reproducible response to treatment for potential peripheral nerve stimulation or genicular RFA. Patient and his son report they will think about this and request if patient can start pain medication to alleviate his pain. I have informed patient and his family that we do not offer opioid program at this time. Denies any recent cough, cold, infection, fever or other significant changes in medical history since last office visit. PRIOR 09/18/22 Dr. Carty: Herb is in the phone today to discuss the results of diagnostic right genicular nerve block which was performed on 09/16/2022. She reports that the during the 1st hour after the injection his pain was reduced about 40% from 7-8 out of 10 to 4 to 5/10. The 2nd hour after procedure she reported his pain 6/10 under 3rd hour after procedure the pain return to 7 to 8/10 the patient reports slight improvement in mobility however admits that the posterior surface of the knee got better pain relief (?) Compared to the front. In any case the results of the injections are not encouraging for any manipulation with genicular nerves. I think we need to perform diagnostic right-sided femoral nerve block. For this procedure he needs to be by a the relative because after the procedure the anterior surface of the hip muscles vastus lateralis, medialis and intermedius will be partially paralyzed. Prior:C/o on pain in the right knee. He reports that physical activity aggravates the pain of his knee. Started in the summer of 2021. He went orthopedic surgeon for consult and was referred for pain management because he has critical aortic stenosis. He manages his pain with exuberant doses of ibuprofen. He is also taking atorvastatin. He is living by himself and wants to perform all the activities in the house however the pain is not very conducive for this task. physical therapy aggravated his pain. He has images of his knee which are dictated as below. Past medical history is significant for critical aortic stenosis. [facility] Medical History Annual physical exam Osteoarthritis of right knee Anemia Ingrown toenail of both feet Hyperglycemia Aortic stenosis Right carpal tunnel syndrome Hyperlipidemia Surgical History S/P TAVR (transcatheter aortic valve replacement) (~03/2023) H/O colonoscopy Family History Father No problems noted. Mother No problems noted. Social History Housing: House Alcohol intake: never Patient Tobacco Use Status: Never used Tobacco e-Cigarette/Vaping Use: Never Used Current occupational status: retired Cognitive needs: No Hearing needs: Yes Vision needs: Yes Review of Systems Const All systems reviewed & are unremarkable except as noted in HPI and below Physical Exam Vital Signs: Last Vital Signs Pulse 75 07/28/23 09:26 BP 167/75 H 07/28/23 09:26 Pulse Ox 98 07/28/23 09:26 Oxygen Delivery Method Room Air 07/28/23 09:26 BMI result Body Mass Index 30.3 General: Appears afebrile. No acute distress. Alert and oriented. Mood and affect appropriate. Pleasant. Follows and participates in conversation appropriately. Respiratory effort is unlabored. No cough. Able to transition from sit to stand unassisted. Uses cane with walking. Ambulates with bilaterally normal heel strike and toe off. Back/Spine/Pelvis Other: Mild tenderness to palpation in lower lumbar spine. No midline tenderness. No paraspinal tenderness to palpation in the thoracic or lumbar spine. Lumbar extension and flexion reproduces moderate symptoms. Mild groin pain with right internal hip rotation, no groin pain on the left with ROM. Kade's test reproduce right groin and low back pain on the right. Strength: 4/5 right hip flexion. Back: back tenderness Cervical Spine: cervical ROM normal and No Cervical spine tenderness Thoracic/Lumbar Spine: thoracic and lumbar spine normal to inspection, No Thoracic/lumbar spine scar(s), Lasegue's sign positive on the right and localized, pain with thoraco-lumbar ROM, paraspinal muscle tenderness, thoraco-lumbar ROM limited, No thoracic spinal tenderness and lumbar spinal tenderness Pelvis: buttock tenderness on the right Sacroiliac joints: on the right tender to palpation and on the left nontender Extrem General: Yes capillary refill normal, Yes no clubbing, cyanosis or edema and Yes no calf tenderness Results Reviewed Results Reviewed: XR LUMBOSACRAL SPINE 05/18/23 CLINICAL INFORMATION: Low back pain COMPARISON: None available. FINDINGS: There are L1 and L2 vertebral body compression fractures, mild/moderate L1 and moderate/severe L2. L1 vertebral body compression fracture probably old. There is slight increased sclerosis along the superior endplate of the L1 body and this fracture may be more recent. Question sacral fracture, S4. Degenerative spondylosis at L2-L3 and L3-L4. Disc space narrowing at T12-L1, L1-L2 and L2-L3. Lower lumbar spine facet arthritis. Atherosclerotic disease. IMPRESSION: L1 and L2 vertebral body compression fractures. Degenerative changes. MR LUMBAR SPINE WITHOUT CONTRAST 05/27/23 CLINICAL INFORMATION: Wedge compression fracture of the 1st lumbar vertebra. COMPARISON: Lumbar spine radiographs from 05/18/2023 TECHNIQUE: MRI of the lumbar spine was obtained using routine sequences without contrast. FINDINGS: Is a compression deformities of the L1 and L2 vertebral bodies with there is no loss of L1 vertebral body heights and and 50% loss of L1 vertebral body height and 60% loss of L2 vertebral body heights. Persistent marrow edema throughout the L1 and L2 vertebral bodies as well as the bilateral L1 pedicles. Normal anatomic alignment. Normal, homogeneous marrow signal throughout. The vertebral body heights are maintained. The intervertebral discs are of normal height and signal. The conus medullaris terminates at the level of L2. The distal spinal cord is normal in appearance. No significant abnormalities of the paraspinal musculature. Limited evaluation of the intra-abdominal structures without significant abnormalities. The abdominal aorta is of normal contour and caliber. Retroaortic left renal vein. AXIAL SPINAL LEVELS: T12-L1: Moderate diffuse disc bulge with posterior osseous. There is moderate right and mild left facet joint. There is moderate bilateral neural foraminal stenosis. There is mild neural foraminal stenosis. L1-L2: Mild diffuse disc bulge with posterior osseous ridging. There is mild bilateral facet joint arthropathy. There is moderate left and mild right neural foraminal stenosis. There is no spinal canal stenosis. L2-L3: Moderate diffuse disc bulge with posterior osseous ridging. There is moderate to severe bilateral facet joint arthropathy with ligamentum flavum hypertrophy. There is severe right worse than left neural foraminal stenosis. There is moderate spinal canal stenosis. L3-L4: Moderate diffuse disc bulge. There is moderate to severe bilateral facet joint arthropathy. There is moderate bilateral neural foraminal stenosis. There is stenosis of the subarticular zones with moderate spinal canal stenosis centrally. L4-L5: Moderate diffuse disc bulge with superimposed central disc protrusion. There is moderate to severe bilateral facet joint arthropathy. There is moderate left and mild right neural foraminal stenosis. There is severe spinal canal stenosis right.. L5-S1: Mild disc bulge with superimposed small central disc protrusion. There is moderate bilateral facet joint arthropathy. There is moderate bilateral neural foraminal stenosis. There is narrowing of the subarticular zones with no overt spinal canal stenosis centrally. IMPRESSION: 1. Compression fractures of the L1 and L2 vertebral bodies with persistent marrow edema. 2. 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 Most notably, there are moderate to severe spinal canal stenoses from L2-L5. Moderate to severe neural foraminal stenoses from T12-S1. Assessment & Plan Assessment & Plan (1) Right hip pain: Code(s): M25.551 - Pain in right hip (2) Lumbar radiculopathy, right: Code(s): M54.16 - Radiculopathy, lumbar region (3) Lumbar degenerative disc disease: Code(s): M51.36 - Other intervertebral disc degeneration, lumbar region (4) Lumbar spinal stenosis: Code(s): M48.061 - Spinal stenosis, lumbar region without neurogenic claudication (5) Osteoarthritis of right knee: Code(s): M17.11 - Unilateral primary osteoarthritis, right knee Plan Patient is status post right L2 TFESI on 07/01/23 with minimal pain relief. We will proceed with Neurosurgical evaluation to consider a right L2 foraminotomy. Hip with pelvic imaging to assess degree of arthritis and degenerative changes to evaluate for hip pathology. His symptoms overlap with spinal stenosis related pain and affect his walking capacity and daily functioning. Refill sent for gabapentin. Side effects and precautions reviewed. Encouraged daily physical activity as tolerated, right quads knee stretching and strengthening exercises, and adequate hydration. All questions and concerns have been answered and patient agrees with the plan. Follow up for xray results and sooner as needed. Orders: Orders XR hip BI w PEL1V Today M25.551 - Pain in right hip Referrals Neurosurgery Referral M48.061 - Spinal stenosis, lumbar region without neurogenic claudication, M51.36 - Other intervertebral disc degeneration, lumbar region, M54.16 - Radiculopathy, lumbar region Medications: Changed From gabapentin 100 mg PO BEDTIME 30 caps 0RF pain M51.36 - Other intervertebral disc degeneration, lumbar region, M54.16 - Radiculopathy, lumbar region To gabapentin 100 mg PO BEDTIME 90 days 90 caps 1RF pain M51.36 - Other intervertebral disc degeneration, lumbar region, M54.16 - Radiculopathy, lumbar region Coding Level of Care Code Est Pt Level 4 (04887) Diagnoses Right hip pain M25.551 Lumbar radiculopathy, right M54.16 Lumbar degenerative disc disease M51.36 Lumbar spinal stenosis M48.061 Osteoarthritis of right knee M17.11
[2023-07-28 09:26] VITALS: BP 167/75; PULSE 75; O2SAT 98; BMI 30.3
== END 2023-07-28 09:52 | disposition home or self-care (01) ==
PROVIDERS: PCP Internal Medicine; Visit Provider Nurse Practitioner Family
DX: M25.551 Pain in right hip (principal); M54.16 Radiculopathy, lumbar region; M51.36 Other intervertebral disc degeneration, lumbar region; M48.061 Spinal stenosis, lumbar region without neurogenic claudication; M17.11 Unilateral primary osteoarthritis, right knee
CPT/HCPCS: 99214

== ENCOUNTER 2023-07-29 08:49 | Outpatient (REF) | payer MEDICARE, SELFPAY ==
--- NOTE | ~2023-07-29 | US_ITS ---
EXAMINATION: US ABDOMEN COMPLETE CLINICAL INFORMATION: Unspecified abdominal pain. COMPARISON: None available. TECHNIQUE: Real-time imaging of the abdominal viscera. FINDINGS: PANCREAS: The pancreas is not well seen due to bowel gas. ABDOMINAL AORTA: The proximal and distal abdominal aorta are within the normal caliber. The mid abdominal aorta is obscured by bowel gas. INFERIOR VENA CAVA: Visualized portions are normal. LIVER: Normal. The liver is normal in size. The liver contour is normal. Parenchymal echogenicity is normal. No focal hepatic lesion. There is no intrahepatic biliary duct dilatation seen. GALLBLADDER: The gallbladder is physiologically distended without evidence of stones, sludge, wall thickening or pericholecystic fluid. Question of tiny polyps. COMMON BILE DUCT: Normal in caliber measuring 1.2 cm in diameter. The mid and distal common duct are obscured by bowel gas. RIGHT KIDNEY: There is a 1.4 x 1.2 x 1.4 cm simple lower pole cyst. No imaging follow-up is recommended. No hydronephrosis or renal calculi. The kidney measures 12.6 cm in maximum dimension. LEFT KIDNEY: There is a 3.2 x 3.0 x 3.6 cm simple mid renal cyst. No imaging follow-up is recommended. No hydronephrosis or renal calculi. The kidney measures 13.5 cm in maximum dimension. SPLEEN: Normal. The spleen measures 9.1 cm in maximum dimension. FREE FLUID: None. US/US abdomen complete IMPRESSION: 1. There is dilatation of the common duct. The mid and distal common duct are obscured by bowel gas. CT scan of the abdomen and pelvis to evaluate for choledocholithiasis or MRCP could be performed for further evaluation. 2. Question of tiny gallbladder polyps. 3. The pancreas and mid abdominal aorta are obscured by bowel gas.
== END 2023-07-29 08:50 | disposition home or self-care (01) ==
LOC: HO.HMGCX 08:49
PROVIDERS: PCP Internal Medicine; Visit Provider Internal Medicine
DX: R10.9 Unspecified abdominal pain (principal)
CPT/HCPCS: 76700

== ENCOUNTER 2023-08-10 08:35 | Outpatient (REF) | payer MEDICARE, SELFPAY ==
--- NOTE | ~2023-08-10 | US_ITS ---
EXAMINATION: US PELVIS LIMITED (BLADDER) CLINICAL INFORMATION: Benign prostatic hyperplasia without lower urinary tract symptoms. Residual urinary volume. COMPARISON: Ultrasound abdomen complete 07/29/2023. TECHNIQUE: Real-time imaging of the bladder. FINDINGS: BLADDER: Well-distended with mild diffuse wall thickening and trabeculations. Bilateral ureteral jets are demonstrated. Prevoid bladder volume is 172 mL. Postvoid bladder volume is 24.3 mL. ADDITIONAL FINDINGS: Enlarged prostate measuring 55.3 mL indenting upon the urinary bladder base. US/US bladder IMPRESSION: 1. Mild diffuse bladder wall thickening and trabeculations, likely related with chronic outlet obstruction. 2. Enlarged prostate with minimally increased post void residual volume.
== END 2023-08-10 08:36 | disposition home or self-care (01) ==
LOC: HO.HMGCX 08:35
PROVIDERS: PCP Internal Medicine; Visit Provider Internal Medicine
DX: N40.0 Benign prostatic hyperplasia without lower urinary tract symptoms (principal)
CPT/HCPCS: 76857

== ENCOUNTER 2023-08-21 08:47 | Outpatient (AMB) | payer MEDICARE, SELFPAY ==
--- NOTE | 2023-08-21 09:22 | A.SPINEOV_ITS ---
Intake Intake Visit Reasons: radiculopathy Intake Note: Mr. Quintero is here today c/o low back and hip pain. MRI done @ [facility]. Land [employer] Specialist Required: No Allergies No Known Allergies Allergy (Verified 08/21/23 09:22) Assessment & Plan Assessment & Plan (1) Lumbar spinal stenosis: Code(s): M48.061 - Spinal stenosis, lumbar region without neurogenic claudication Plan: Dear Maria Dolores Thank you for referring Mr Quintero to our office today. He has an 87-year-old gentleman presents to the office today for evaluation right sided hip pain which goes into his right groin and down into his anterior medial thigh. It happened after a fall last year where he sustained compression fractures at L1 and L2. Subsequently he underwent a kyphoplasty and did well with improvement in his back pain, but after the does had cleared from that procedure he noticed this persistent pain in the right hip in the right anterior thigh/groin. It is aggravated with activity and gets better when he sits. It does not completely go away when he sits down. He can make it go away if he lays back recumbent in a chair or bed in a certain position. It is getting to the point now where it has become a nagging difficult injury to live with because it limits his ability to walk more than maybe 5 minutes. He does not report any specific weakness or numbness associated with it. He takes ibuprofen and Tylenol throughout the day and that seems to help. Underwent a right L2 TFE based on imaging report showing a severe right L2 foraminal stenosis. That did give him a few weeks of pain relief. He does not report any pain going down past the knee into the ankle or the foot. He is here today for evaluation because the pain has returned since the injection and he is frustrated with his quality of life. He also has stenosis at L4-5 as well central canal bilateral. PMH: He underwent an aortic valve replacement in March of 2023 and has had tremendous improvements in his functional abilities right after the surgery until the fall, history of BPH, kyphoplasty as mentioned above for the fractures, high cholesterol, other than that he denies any history of coronary disease, strokes, kidney disorders, coagulopathies. He is being worked up for some kind of scarring on his liver but denies any history of liver disease, hepatitis or alcohol abuse etc.. Social hx: Quit smoking many many years ago, does not drink or use any recreational marijuana/drugs Medications: Lipitor, baby aspirin, ibuprofen and Tylenol Allergies: None Physical exam: He has a very pleasant elderly gentleman no acute distress, he is able to slowly stand up out of a chair. He may have some mild right iliopsoas weakness 4+ out of 5, his quadriceps and distal lower extremity strength is full. He has absent reflexes at the patella and the Achilles bilaterally. Negative HILLARY testing. Imaging review: Lumbar MRI done at [facility] in May 2023 shows evidence of compression fractures L1 and L2 with severe right L2 foraminal stenosis, he has severe L4-5 stenosis as well. Impression: 87-year-old gentleman presents to the office today for evaluation of a pain in his right hip which goes into his right groin down to his right anterior medial thigh. The pain started shortly after a fall in which he sustained L1 and L2 compression fractures. He underwent kyphoplasty with improvement in the back pain he was having at the time but the pain in the right hip/groin and thigh has never gone away. It is very aggravating to him and his claudicating in nature. He can however still have it even if he is sitting in a chair. If he lays down flat he can make it go away. He had a good response from a right L2 TFESI for few weeks but the pain ultimately came back. He has some mild weakness of his iliopsoas but I am not sure if that is just pain related. He has 2 spots that could be considered for surgical targets here but my suspicion is that the right L2 foramen is the source of his pain as it happened at the exact same time of the fall and he had good relief from the injection at this spot. The L4-5 stenosis may be incidental. I will talk with Dr. Rogers as to whether he thinks we should address both or just strictly stick to the right L2 area. I would also like to see upright films with flexion-extension views to make sure there is no structural scoliotic abnormalities which may have to be considered in the setting of the previous fractures in terms of surgical planning. I will call the gentleman son once I have a chance to review all the imaging with Dr. Barlow. Thank you for allowing us to care for your patient. The total time spent with this visit with this patient was 45 minutes reviewing history, physical exam, lumbar imaging review, and implementation of treatment plan or further diagnostic testing Brandt Rogers MD,PhD [facility] (2) Traumatic compression fracture of L2 vertebra: Code(s): S32.020A - Wedge compression fracture of second lumbar vertebra, initial encounter for closed fracture (3) Traumatic compression fracture of L1 lumbar vertebra: Code(s): S32.010A - Wedge compression fracture of first lumbar vertebra, initial encounter for closed fracture Plan: see above Plan see above Orders: Orders XR lumbar spine 4V min Today M48.061 - Spinal stenosis, lumbar region without neurogenic claudication, S32.010A - Wedge compression fracture of first lumbar vertebra, initial encounter for closed fracture, S32.020A - Wedge compression fracture of second lumbar vertebra, initial encounter for closed fracture Coding Level of Care Code New Pt Level 4 (00154) Diagnoses Lumbar spinal stenosis M48.061 Traumatic compression fracture of L2 vertebra S32.020A Traumatic compression fracture of L1 lumbar vertebra S32.010A
== END 2023-08-21 09:35 | disposition home or self-care (01) ==
PROVIDERS: PCP Internal Medicine; Referring Provider Nurse Practitioner Family; Visit Provider Physician Assistant
DX: M48.061 Spinal stenosis, lumbar region without neurogenic claudication (principal); S32.020A Wedge compression fracture of second lumbar vertebra, initial encounter for closed fracture; S32.010A Wedge compression fracture of first lumbar vertebra, initial encounter for closed fracture
CPT/HCPCS: 99204

== ENCOUNTER 2023-08-21 08:47 | Outpatient (REF) | payer MEDICARE, SELFPAY ==
--- NOTE | ~2023-08-21 | XR_ITS ---
EXAMINATION: XR LUMBOSACRAL SPINE WITH FLEXION AND EXTENSION CLINICAL INFORMATION: Lumbar spinal stenosis without neurogenic claudication. COMPARISON: Radiographs dated 06/19/2023. TECHNIQUE: AP and lateral (neutral, flexion and extension) views of the lumbosacral spine are submitted. FINDINGS: There is bony demineralization. There is a mild lumbar levoscoliosis. There are marked L1 and moderate L2 compression fractures, with post vertebroplasty changes. There is posterior disc space narrowing at L1-L2 and L2-L3, with 3 mm retrolistheses. The remaining disc spaces are relatively well-maintained. No acute fracture or spondylolisthesis is seen. There is multi-level thoracolumbar spondylosis and facet arthropathy. The posterior elements are intact. There are aortoiliac atherosclerotic calcifications. XR/XR lumbar spine 4V min IMPRESSION: 1. There are stable marked L1 and moderate L2 compression fractures, with post vertebroplasty changes. No new fracture is seen. 2. There is degenerative disc disease at L1-L2 and L2-L3, with 3 mm, grade 1 retrolistheses at each level. 3. There is multi-level lumbar spondylosis and facet arthropathy. 4. There is no instability with flexion or extension.
== END 2023-08-21 08:48 | disposition home or self-care (01) ==
LOC: HO.HOSX 08:47
PROVIDERS: PCP Internal Medicine; Visit Provider Physician Assistant
DX: S32.020A Wedge compression fracture of second lumbar vertebra, initial encounter for closed fracture (principal); S32.010A Wedge compression fracture of first lumbar vertebra, initial encounter for closed fracture; M48.061 Spinal stenosis, lumbar region without neurogenic claudication; M25.551 Pain in right hip; W19.XXXA Unspecified fall, initial encounter; Y93.9 Activity, unspecified; Y92.9 Unspecified place or not applicable; Y99.9 Unspecified external cause status
CPT/HCPCS: 72110; 99202

== ENCOUNTER 2023-09-17 07:04 | Outpatient (REF) | payer MEDICARE, SELFPAY ==
--- NOTE | ~2023-09-17 | MR_ITS ---
EXAMINATION: MR ABDOMEN WITHOUT CONTRAST CLINICAL INFORMATION: Calculus of the bile duct without cholangitis or cholecystitis COMPARISON: Abdominal ultrasound 07/29/2023 TECHNIQUE: MRI of the abdomen without contrast was obtained using routine sequences. Heavily T2 weighted MRCP sequences were also obtained. FINDINGS: LUNG BASES: Trace right pleural effusion. ABDOMINAL AND PELVIC WALL: Unremarkable. LIVER AND BILIARY TREE: Common bile duct is mildly dilated for age in maximal dimension measuring 1.1 cm however tapers to a normal caliber of 7 mm distally. There is trace central intrahepatic biliary duct dilatation. No intraluminal filling defect just choledocholithiasis. GALLBLADDER: No cholelithiasis. PANCREAS: There are multiple pancreatic cysts measuring up to 1.4 cm in the pancreatic uncinate process, 3:12. Pancreatic cysts do not appear to communicate with the main pancreatic duct. No pancreatic duct dilatation. Recommend correlation with any findings of SPLEEN: Unremarkable. ADRENAL GLANDS: Unremarkable. KIDNEYS AND URETERS: Bosniak 1 benign bilateral renal cysts no imaging follow-up recommended. GASTROINTESTINAL TRACT: Unremarkable. VASCULAR: Retroaortic left renal vein. LYMPH NODES/PERITONEUM: No lymphadenopathy. FREE FLUID: None. OSSEOUS STRUCTURES: Unremarkable. MR/MR MRCP IMPRESSION: 1. Common bile duct is mildly dilated for age in maximal dimension measuring 1.1 cm however tapers to a normal caliber of 7 mm distally. There is trace central intrahepatic biliary duct dilatation. No intraluminal filling defect to suggest choledocholithiasis. 2. Multiple pancreatic cysts measuring up to 1.4 cm in the pancreatic uncinate process. Pancreatic cysts do not appear to communicate with the main pancreatic duct. No pancreatic duct dilatation. Given the findings of mild intra and extrahepatic biliary duct dilatation, recommend correlation with any clinical/laboratory findings of extrahepatic biliary obstruction, as if present this would warrant endoscopic ultrasound and fine-needle aspiration, and if absent recommend two-year follow-up contrast enhanced MRI/MRCP. 3. Trace right pleural effusion.
== END 2023-09-17 07:05 | disposition home or self-care (01) ==
LOC: HO.MRI 07:04
PROVIDERS: PCP Internal Medicine; Visit Provider Internal Medicine
DX: K80.51 Calculus of bile duct without cholangitis or cholecystitis with obstruction (principal)
CPT/HCPCS: 74181

== ENCOUNTER 2023-10-02 08:47 | Outpatient (REF) | payer MEDICARE, SELFPAY ==
[2023-10-02 10:39] LABS: MANUAL DIFF FLAG NO
[2023-10-02 10:46] LABS: Basophils Percent Auto 0.4 % (0-2); Eosinophils Absolute Auto 0.2 X10*3/uL (0.0-0.4); Hematocrit 41.5 % (42.0-52.0); Imm Gran Abs Auto 0.01 X10*3/uL (0.00-0.03); Imm Gran Pct Auto 0.2 % (0.0-0.4); Lymphocytes Absolute Auto 1.7 X10*3/uL (1.2-4.9); Lymphocytes Percent Auto 33.7 % (20-40); Mean Corpuscular HGB Conc 33.7 g/dl (31.0-36.0); Mean Corpuscular Hemoglobin 32.5 pg (27.0-33.0); Mean Corpuscular Volume 96.3 fL (80.0-98.0); Mean Platelet Volume 10.7 fL (9.4-12.4); Monocytes Absolute Auto 0.5 X10*3/uL (0.1-1.2); Neutrophils Absolute Auto 2.6 x10*3/uL (2.0-8.3); Neutrophils Percent Auto 52.7 % (45-73); Platelet Count 112 X10*3/uL (160-400); Red Blood Count 4.31 X10*6/uL (4.60-5.80); Red Cell Distribution Width 13.2 % (11.0-16.0)
[2023-10-02 11:03] LABS: Alanine Aminotransferase 22 U/L (0-40); Albumin Level 3.9 g/dL (3.5-5.0); Alkaline Phosphatase 76 U/L (39-117); Anion Gap 12 (12-20); Aspartate Amino Transferase 24 U/L (5-37); Blood Urea Nitrogen 21 mg/dL (9-16); Calcium 9.1 mg/dL (8.4-10.2); Carbon Dioxide 27 mmol/L (22-29); Chloride 110 mmol/L (96-108); Estimated Glomerular Filt Rate > 60; Glucose Fasting 116 mg/dL (60-99); Iron 166 mcg/dL (45-160); Percent Iron Saturation 54 % (15-50); Potassium 4.2 mmol/L (3.3-5.1); Sodium 145 mmol/L (135-145); Total Iron Binding Capacity 310 mcg/dL (228-428); Total Protein 6.6 g/dL (6.5-8.0); Unsaturated Iron Binding 144 ug/dL
[2023-10-02 11:32] LABS: Folate 13.8 ng/mL (> or = 4.0); Vitamin B12 355 pg/mL (200-900)
== END 2023-10-02 08:48 | disposition home or self-care (01) ==
LOC: HO.HMGCLDS 08:47
PROVIDERS: PCP Internal Medicine; Visit Provider Internal Medicine
DX: N40.0 Benign prostatic hyperplasia without lower urinary tract symptoms (principal); I35.0 Nonrheumatic aortic (valve) stenosis; D69.6 Thrombocytopenia, unspecified; R73.9 Hyperglycemia, unspecified; S32.020A Wedge compression fracture of second lumbar vertebra, initial encounter for closed fracture; X58.XXXA Exposure to other specified factors, initial encounter; Y93.9 Activity, unspecified; Y92.9 Unspecified place or not applicable; Y99.9 Unspecified external cause status
CPT/HCPCS: 36415; 80053; 82607; 82746; 83540; 85025

== ENCOUNTER → 2023-10-06 14:03 | Outpatient (BNV) | payer MEDICARE, SELFPAY | PROVIDERS: PCP Internal Medicine; Visit Provider Internal Medicine | DX: I45.10 Unspecified right bundle-branch block (principal); I44.7 Left bundle-branch block, unspecified | CPT/HCPCS: 93010 ==

== ENCOUNTER 2023-10-07 10:05 | Outpatient (AMB) | payer MEDICARE, SELFPAY ==
--- NOTE | 2023-10-07 10:49 | A.OFFPC_ITS ---
Vital Signs 10/07/23 10:54 Height 5 ft 9 in Weight 215 lb BMI 31.7 BP 126/78 Blood Pressure Location Rt brachial Position Sitting Pulse 82 Pulse Source Pulse Oximeter Pulse Oximetry (%) 96 Oxygen Delivery Method Room Air Intake Visit Reasons: 3 Month F/U Internal Audit Director Required: No Information Interpreted: non-clinical & clinical Accompanied by: Son Allergies No Known Allergies Allergy (Verified 10/07/23 10:52) Medication List - Last Reconciled 10/07/23 by Estee Butler MD aspirin 81 mg PO QAM atorvastatin 10 mg PO BEDTIME ibuprofen 200 mg PO Q6H PRN multivitamin 1 tab PO QAM tramadol 50 mg PO BID PRN 10 days Tobacco use date assessed: 10/07/23 Fall risk assessment: 2 + Falls in past year Last assessed Fall Risk: 10/07/23 Dental Screening Dental Screen Date: 10/07/23 Did you have a dental visit in the last 12 months?: Yes Did you have a dental problem in the last 6 months where you did not have access to dental care?: No Was dental information given to patient?: Patient has dentist HPI 3 Month F/U HPI Details Patient presents for the follow-up of hyperlipidemia BPH, lumbar spine stenosis. He is scheduled to have a lower back surgery tomorrow. Patient has an appointment with Urology for BPH. he tried tamsulosin but complained of increased urinary frequency at night. Patient denies dysuria. [facility] Medical History (Updated 10/07/23 @ 11:34 by Estee Butler MD) Thrombocytopenia Memory difficulties Chronic pain syndrome BPH (benign prostatic hyperplasia) Annual physical exam Osteoarthritis of right knee Anemia Ingrown toenail of both feet Aortic stenosis Right carpal tunnel syndrome Hyperlipidemia Surgical History Hx of appendectomy Hx of kyphoplasty S/P TAVR (transcatheter aortic valve replacement) (~03/2023) H/O colonoscopy Family History Father No problems noted. Mother No problems noted. Social History Housing: House Are you a primary neonatal intensive care unit nurse to a significant other at home: No Do you presently have visiting nurse or other home services: No Alcohol intake: never Patient Tobacco Use Status: Former Tobacco user Quit Date: age 41's Tobacco use type: Cigarette, Cigar and Pipe Years Smoked: 20 e-Cigarette/Vaping Use: Never Used Current occupational status: retired Cognitive needs: No Hearing needs: Yes Vision needs: Yes Questionnaire PHQ-9 Over the last 2 weeks, how often have you been bothered by any of the following problems? 1. Little interest or pleasure in doing things: more than half the days 2. Feeling down, depressed, or hopeless: more than half the days 3. Trouble falling or staying asleep, or sleeping too much: several days 4. Feeling tired or having little energy: several days 5. Poor appetite or overeating: several days 6. Feeling bad about yourself - or that you are a failure or have let yourself or your family down: several days 7. Trouble concentrating on things, such as reading the newspaper or watching television: not at all 8. Moving or speaking so slowly that other people could have noticed. Or the opposite - being so fidgety or restless that you have been moving around a lot more than usual: more than half the days 9. Thoughts that you would be better off or of hurting yourself in some way: more than half the days Total score: 12 Depression Screening Interpretation: Positive Depression Screening Done: Yes 10691 - PHQ-9 Billing: Yes Source: Developed by Drs. Shashank Kimbrough, Georgina Turner, Sarthak Askew and colleagues, with an educational luther from [employer]. Thrive Questionnaire Date Thrive assessed: 10/07/23 I am a: Patient What is your living situation today?: I have a steady place to live Within the past 12 months, did the food you bought not last and you didn't have the money to get more?: Never true Within the past 12 months, did you worry whether your food would run out before you got money to buy more?: Never true Do you have trouble paying for medicines?: No Do you have trouble getting transportation to medical appointments?: No Do you have trouble paying your heating and electricity bill?: No Do you have trouble taking care of your child, family member or friend?: No Do you have trouble with day-to-day activities such as bathing, preparing meals, shopping, managing finances, etc.?: No Are you currently unemployed and looking for a job?: No Are you interested in more education?: No Please select the resources that you would like help with: None Currently or been in a relationship where the following occur: no concerns reported THRIVE Score: 0 AUDIT C Alcohol Use Questionnaire (AUDIT-C) 1. How often do you have a drink containing alcohol?: Monthly or less 2. How many drinks containing alcohol do you have on a typical day when you are drinking?: 1 or 2 3. How often do you have six or more drinks on one occasion?: Never Total Score: 1 EMILIE-7 AMB Questionnaire EMILIE-7 Date EMILIE - 7 assessed: 01/05/23 Feeling nervous, anxious, or on edge: 0 = Not at all Not being able to stop or control worryin = Not at all Worrying too much about different things: 0 = Not at all Trouble relaxin = Not at all Being so restless that it is hard to sit still: 0 = Not at all Becoming easily annoyed or irritable: 0 = Not at all Feeling afraid as if something awful might happen: 0 = Not at all Total EMILIE-7 score (0-4 normal; 5-9 mild; 10-14 moderate; 15-21 severe): 0 Source: Developed by Drs. Shashank Kimbrough, Georgina Turner, Sarthak Askew and colleagues, with an educational luther from [employer]. Review of Systems Const All systems reviewed & are unremarkable except as noted in HPI and below Reports no additional complaints Eyes Reports no additional complaints ENT Reports no additional complaints Card Reports no additional complaints Resp Reports no additional complaints GI Reports no additional complaints Reports no additional complaints Physical exam (Primary Care) Vital Signs: Last Vital Signs Pulse 82 10/07/23 10:54 BP 138/78 10/07/23 10:54 Pulse Ox 96 10/07/23 10:54 Oxygen Delivery Method Room Air 10/07/23 10:54 BMI result Body Mass Index 31.7 Tobacco/Smoking Status: Tobacco use Status Tobacco use date assessed 10/07/23 10/07/23 11:00 Patient Tobacco Use Status Former Tobacco user 10/07/23 10:51 Tobacco use type Cigarette,Pipe,Cigar 10/07/23 10:51 e-Cigarette/Vaping Use Never Used 10/07/23 10:51 PHQ-9: PHQ-9 Score PHQ-9: Total score 12 10/07/23 11:00 Depression Screening Interpretation: Positive Thrive Assessment: Date of Thrive Assessment Date Thrive assessed 10/07/23 10/07/23 11:00 Currently or been in a relationship where the following occur: no concerns reported Const General: no acute distress HENMT Head: Yes normal to inspection Throat: Yes posterior oropharynx normal Eyes General: appearance normal, both eyes and all related structures Resp Effort & Inspection: normal respiratory effort Auscultation: clear to auscultation bilaterally Cardio Rhythm: regular rhythm Heart sounds: S1 normal heart sound present and S2 normal heart sound present GI Inspection: Yes normal to inspection Palpation (GI): Soft to palpation Percussion: Yes normal to percussion Auscultation: normal bowel sounds Assessment and Plan Assessment & Plan (1) BPH (benign prostatic hyperplasia): Comment: will see urology Code(s): N40.0 - Benign prostatic hyperplasia without lower urinary tract symptoms Plan: Follow-up with urology (2) Lumbar spinal stenosis: Comment: L spine surgery 10/10 [facility] Code(s): M48.061 - Spinal stenosis, lumbar region without neurogenic claudication Plan: Follow-up with pain management (3) Traumatic compression fracture of L2 vertebra: Code(s): S32.020A - Wedge compression fracture of second lumbar vertebra, initial encounter for closed fracture (4) Compression fracture of L2 lumbar vertebra: Comment: After fall from a ladder, s/p kyphoplasty 05/11 no relief, DEXA nl 07/11 Code(s): S32.020A - Wedge compression fracture of second lumbar vertebra, initial encounter for closed fracture Plan: Follow-up with pain management (5) Aortic stenosis: Comment: Severe peak gradient 64 mmHg - s/p TAVR 04/11 - follows w/[facility] Cardiology Code(s): I35.0 - Nonrheumatic aortic (valve) stenosis Plan: Follow-up with the Cardiology, EKG showed normal sinus rhythm right bundle branch block left anterior fascicular hemiblock no interval changes (6) Hyperlipidemia: Code(s): E78.5 - Hyperlipidemia, unspecified Plan: Continue statin Coding Level of Care Code Est Pt Level 4 (22455) Diagnoses BPH (benign prostatic hyperplasia) N40.0 Lumbar spinal stenosis M48.061 Traumatic compression fracture of L2 vertebra S32.020A Compression fracture of L2 lumbar vertebra S32.020A Aortic stenosis I35.0 Hyperlipidemia E78.5
[2023-10-07 10:54] VITALS: BP 126/78; PULSE 82; O2SAT 96; BMI 31.7
== END 2023-10-07 11:34 | disposition home or self-care (01) ==
PROVIDERS: PCP Internal Medicine; Visit Provider Internal Medicine
DX: N40.0 Benign prostatic hyperplasia without lower urinary tract symptoms (principal); M48.061 Spinal stenosis, lumbar region without neurogenic claudication; S32.020A Wedge compression fracture of second lumbar vertebra, initial encounter for closed fracture; I35.0 Nonrheumatic aortic (valve) stenosis; E78.5 Hyperlipidemia, unspecified
CPT/HCPCS: 99214

== ENCOUNTER 2023-10-08 10:50 | Day surgery (SDC) | payer MEDICARE, SELFPAY ==
--- NOTE | 2023-10-06 | ECG_ITS ---
Test Reason : preop Blood Pressure : / mmHG Vent. Rate : 072 BPM Atrial Rate : 072 BPM P-R Int : 156 ms QRS Dur : 134 ms QT Int : 436 ms P-R-T Axes : 029 -67 005 degrees QTc Int : 477 ms Normal sinus rhythm Right bundle branch block Left anterior fascicular block Bifascicular block Abnormal ECG No previous ECGs available Referred By: Danette Baugh Electronically Signed By:KIYA SAMPSON
[2023-10-06 13:18] VITALS: BP 162/77; PULSE 83; RESP 20; O2SAT 95; BMI 31.7
--- NOTE | 2023-10-06 13:36 | P.CONAN_ITS ---
Documented by User: Danette Baugh NP 10/07/23 10:03 HPI - Anesthesia Eval Consult details Narrative: 87yo M for Right L2 Foraminotomy No recent illness No CP/SOB with minimal activity. Mild RLE edema r/t leg brace, none on left. No orthopnea s/p Kyphoplasty 05/2023 with MAC, no issues per pt Follows [facility] cardiology. Last office visit 04/2023 and ok for 1 year f/u Aortic stenosis s/p TAVR 03/2023. Thrombocytopenia. Plts low back to 2019. Pt and son deny knowledge of this. No bleeding irregularities noted by either. PMFSH Active Problems Active Problems: All Active Problems (Updated 10/06/23 @ 13:17 by Sasha Romero RN) BPH (benign prostatic hyperplasia) (Acute) Lumbar spinal stenosis (Acute) Right hip pain (Acute) Thrombocytopenia (Acute) BPH (benign prostatic hyperplasia) (Acute) Abdominal pain (Acute) Lumbar radiculopathy, right (Acute) Status post kyphoplasty (Acute) Traumatic compression fracture of L2 vertebra (Acute) Traumatic compression fracture of L1 lumbar vertebra (Acute) Lumbar degenerative disc disease (Acute) Compression fracture of L2 lumbar vertebra (Acute) Lower back pain (Acute) Dysuria (Acute) Complex regional pain syndrome of right lower extremity (Acute) Chronic pain syndrome (Acute) Osteoarthritis of right knee (Acute) Memory difficulties (Acute) Osteoarthritis of left knee (Acute) Right knee pain (Acute) Non-rheumatic aortic stenosis (Acute) Hyperglycemia (Acute) Annual physical exam (Acute) Osteoarthritis of right knee (Acute) Anemia (Acute) Ingrown toenail of both feet (Acute) Hyperlipidemia (Acute) Aortic stenosis (Acute) Past Medical History Medical History Thrombocytopenia Memory difficulties Chronic pain syndrome BPH (benign prostatic hyperplasia) Annual physical exam Osteoarthritis of right knee Anemia Ingrown toenail of both feet Aortic stenosis Right carpal tunnel syndrome Hyperlipidemia Family History Family History Father No problems noted. Mother No problems noted. Family history of problems with anesthesia: No Surgical History Surgical History Hx of appendectomy Hx of kyphoplasty S/P TAVR (transcatheter aortic valve replacement) (~03/2023) H/O colonoscopy History of Problems with Anesthesia: No Social History Social History Housing: House Are you a primary resident care aid to a significant other at home: No Do you presently have visiting nurse or other home services: No Alcohol intake: never Patient Tobacco Use Status: Former Tobacco user Quit Date: age 40's Tobacco use type: Cigarette, Cigar and Pipe Years Smoked: 20 e-Cigarette/Vaping Use: Never Used Use of substances other than those prescribed or required for medical reasons: No Have you been hit, kicked, punched, or otherwise hurt by someone within the past year? If so, by whom?: No Are you DNR?: Yes Advance Directives: No Advance Directives Information Provided: Yes Advance Directives on File: No Recently lost weight without trying: No Nutrition Risks: Surgical patient >75years Poor oral hygiene: No (upper & lower full denture) Current occupational status: retired Cognitive needs: No Hearing needs: Yes Vision needs: Yes Meds Allergies Allergy/AdvReac Type Severity Reaction Status Date / Time No Known Allergies Allergy Verified 10/07/23 10:52 Home Medications Medication Instructions Recorded Confirmed Last Taken Type aspirin 81 mg tablet,delayed 81 mg PO QAM 07/05/21 10/07/23 06/02/23 History release multivitamin 1 tab PO QAM 07/05/21 10/07/23 Unknown History ibuprofen 200 mg tablet 200 mg PO Q6H PRN Pain 07/07/22 10/07/23 06/02/23 His tory atorvastatin 10 mg tablet 10 mg PO BEDTIME 10/06/23 10/07/23 Unknown History Exam Height,Weight and Vital Signs: Height 5 ft 9 in Weight 97.522 kg Last Vital Signs Pulse 83 10/06/23 13:18 Resp 20 10/06/23 13:18 BP 162/77 H 10/06/23 13:18 Pulse Ox 95 10/06/23 13:18 O2 Del Method Room Air 10/06/23 13:18 Pertinent Lab Results Pertinent Lab Results: Laboratory Tests 10/02/23 08:50 WBC 5.0 Hgb 14.0 Hct 41.5 L Plt Count 112 L Sodium 145 Potassium 4.2 Chloride 110 H Carbon Dioxide 27 BUN 21 H Creatinine 0.74 Narrative Narrative: EKG 09/2023 Vent. Rate : 072 BPM Atrial Rate : 072 BPM P-R Int : 156 ms QRS Dur : 134 ms QT Int : 436 ms P-R-T Axes : 029 -67 005 degrees QTc Int : 477 ms Normal sinus rhythm Right bundle branch block Left anterior fascicular block Bifascicular block Abnormal ECG No change from 04/2023 at outside facility Airway Mallampati Class: III TM Dist: >3cm Neck ROM: Full Denture: Upper and Lower Heart: RRR Lungs: CTAB Assessment and Plan Assessment Anesthesia Assessment: Anesthesia Plan Discussed and PAT Visit Final Anesthetic Review Family History of Problems with Anesthesia: No History of Problems with Anesthesia: No Documented by User: Carl Monzon MD 10/08/23 11:29 [facility] Past Medical History Medical History Thrombocytopenia Memory difficulties Chronic pain syndrome BPH (benign prostatic hyperplasia) Annual physical exam Osteoarthritis of right knee Anemia Ingrown toenail of both feet Aortic stenosis Right carpal tunnel syndrome Hyperlipidemia Family History Family History Father No problems noted. Mother No problems noted. Surgical History Surgical History Hx of appendectomy Hx of kyphoplasty S/P TAVR (transcatheter aortic valve replacement) (~03/2023) H/O colonoscopy Social History Social History Housing: House Are you a primary resident care aid to a significant other at home: No Do you presently have visiting nurse or other home services: No Alcohol intake: never Patient Tobacco Use Status: Former Tobacco user Quit Date: age 41's Tobacco use type: Cigarette, Cigar and Pipe Years Smoked: 20 e-Cigarette/Vaping Use: Never Used Use of substances other than those prescribed or required for medical reasons: No Have you been hit, kicked, punched, or otherwise hurt by someone within the past year? If so, by whom?: No Are you DNR?: Yes Advance Directives: No Advance Directives Information Provided: Yes Advance Directives on File: No Recently lost weight without trying: No Nutrition Risks: Surgical patient >75years Poor oral hygiene: No (upper & lower full denture) Current occupational status: retired Cognitive needs: No Hearing needs: Yes Vision needs: Yes Meds Allergies Allergy/AdvReac Type Severity Reaction Status Date / Time No Known Allergies Allergy Verified 10/07/23 10:52 Home Medications Medication Instructions Recorded Confirmed Last Taken Type aspirin 81 mg tablet,delayed 81 mg PO QAM 07/05/21 10/07/23 06/02/23 History release multivitamin 1 tab PO QAM 07/05/21 10/07/23 Unknown History ibuprofen 200 mg tablet 200 mg PO Q6H PRN Pain 07/07/22 10/07/23 06/02/23 Hi story atorvastatin 10 mg tablet 10 mg PO BEDTIME 10/06/23 10/07/23 Unknown History Assessment and Plan Final Anesthetic Review NPO: Yes ASA Class: III Final Preanesthetic Review: No Changes in Pt Med Stat, Meds/Allgs Chart Reviewed, Consent Obtained/Reviewed and Anes Risks/Benef Reviewed Patient Risk: Intermediate Procedure Risk: Intermediate Assessment/Block/Sedation in SS: Assess/Block/Sedation-SS Anesthetic Plan Anesthetic Plan: GA Disposition: Standard PACU
[2023-10-08] VITALS (10 sets, daily range): BP systolic 139–152; BP diastolic 65–75; PULSE 70–77; RESP 16–18; TEMP 36.2–36.8; O2SAT 95–100
--- NOTE | ~2023-10-08 | FL_ITS ---
EXAMINATION: XR FLUOROSCOPY WITH IMAGES CLINICAL INFORMATION: L2 foraminotomy COMPARISON: Lumbar spine x-ray on 08/21/2023 TECHNIQUE: Fluoroscopy Supervised By: Ken. Fluoroscopy Time: 0.0. Cumulative Dose: 3.48 mGy. DAP: 0.798 Gycm2. Images: 1. FINDINGS: Fluoroscopy performed during L2 foraminotomy. FL/FL guidance in OR IMPRESSION: Fluoroscopy performed in the operating room. Please see the operative report for further information.
--- NOTE | 2023-10-08 07:21 | P.HPSUR_ITS ---
Pre-Procedural Eval Section A - 24 Hr Update-Section A only Date of Service: 10/08/23 The patient is an INPATIENT: No Changes since office visit: No Cold of Flu in the past 2 weeks, No New Medical Problems, No Changes in Medication and No Patient answered all questions The patient has been examined within 24 hours of the surgical procedure. The History & Physical has been completed within 30 days and I have reviewed it.: No Section B - Complete if H&P > 30 days Chief Complaint: Spinal stenosis, lumbar region without neurogenic Allergies: Allergies Allergy/AdvReac Type Severity Reaction Status Date / Time No Known Allergies Allergy Verified 10/07/23 10:52 Review of Systems Sugical H&P ROS: Negative: Constitution, Cardiovascular, Respiratory, Neurological, Psychiatric, Hem-Onc, Allergic/Immunologic, Gastrointestinal, Genitourinary, Musculoskeletal, Integumentary, Endocrine and Eyes/Ears/Nose/Thro at Exam Surgical H&P Exam: Not Evaluated: HEENT, Not Evaluated: Heart, Not Evaluated: Lungs, Not Evaluated: Extremities, Not Evaluated: Abdomen, Not Evaluated: Skin and Not Evaluated: Neurological Plan Diagnosis/Plan: Unchanged right L2 foraminotomy Time Spent With Patient Time: Total time managing care of this patient today __5__ minutes.
[2023-10-08] MEDS: Lactated Ringers 1,000 ML 100 ML IVCONT (11:39)
[2023-10-08] MEDS: Gabapentin 300 MG CAPSULE PO (12:37)
[2023-10-08] MEDS: methocarbamoL 750 MG TABLET PO (12:38)
--- NOTE | 2023-10-08 15:02 | P.OP_ITS ---
Operative Note Operative Note Date of Service: 10/08/23 Narrative: Preoperative Diagnosis: Spinal stenosis/lateral recess stenosis/neural foraminal stenosis Operation: Right L2 Laminotomy, Partial facetectomy and foraminotomy with use of microscope Consent Informed Consent was obtained for this operation. I have explained the nature, purpose and benefits of the operation. I have discussed the risks and benefit of the operation including possible complications or adverse events with patient/family. Alternative(s) were discussed with the patient with their relative benefits and risks as well as the consequences of not accepting the operation were included in obtaining consent. Surgeon: DOMONIQUE HAGEN MD, PHD Procedure Assisted By: CHRIS Ritter Description of Procedure This 87-year-old male is suffering from severe right lumbar radiculopathy most likely coming from severe L2 neuroforaminal stenosis which is the result of a previous osteoporotic compression fracture The patient was offered a decompression of the nervous structure. The procedure complications were explained. The patient was consented. The patient was brought to the operating room and endotracheally intubated. The patient was turned in prone position on the Reece frame. Prep and drape was done followed by timeout. Physician plant attendant or assistant operator provided access. A mid lumbar incision was made followed by release of the paravertebral muscle on the right side to expose the L2 lamina and facet joint. An intraoperative x-ray was obtained to confirm the correct level. The microscope was brought in. I took over the procedure. The high-speed drill was used to do a L2 laminotomy. #2 Kerrison was used to further remove the lamina towards the L2 foramen. With a nerve hook the medial wall of the L2 pedicle was palpated as well as the beginning of the L2 foramen. The facet joint was partially drilled down after which with a #2 Kerrison a foraminotomy was done. Finally a foraminotomy Kerrison was used to complete the foraminotomy. A long nerve hook could be easily passed lateral and dorsally from the nerve root, a sign of relief of the neuroforaminal stenosis and decompression of the nerve root . The microscope was removed. The patient was very oozy during the case and therefore extensive hemostasis needed to be done. The incision was closed in 2 layers. Steri-Strips were used to approximate incision. An OpSite with Tegaderm was used to cover the incision. All sponge needle counts were correct. Patient was extubated and transported in stable is to recovery room. Anesthesia: General Estimated Blood Loss (ml): 50 mL Duration of Surgery: Under 60 Minutes Postoperative Plan: Discharge to home
--- NOTE | 2023-10-08 15:11 | PM.DS ---
DS: Providers Provider Date of Service: 10/08/23 Primary care physician: Estee Butler MD DS: Summary Time Attestation Discharge Coordination Time (in mins): 10 Quality: Safe Use of Opioids Does Pt have an Active Cancer Diagnosis on the Problem List?: No Quality: Stroke Does the patient have a stroke diagnosis?: No Physical Exam Vital Signs: Vital Signs: Last Vital Signs Temp 98.2 F 10/08/23 11:49 Pulse 74 10/08/23 11:49 Resp 18 10/08/23 11:49 BP 139/74 10/08/23 11:49 Pulse Ox 97 10/08/23 11:49 O2 Del Method Room Air 10/08/23 11:49 BMI result Body Mass Index 31.7 Discharge Plan Discharge Patient Disposition: Home, Self-Care Referrals: Estee Butler MD [Primary Care Provider] - 1 Week Discharge Medications: New oxycodone 5 mg tablet 5 mg PO Q6H PRN (Reason: severe pain (scale score 7-10)) Qty: 30 0RF Rx Instructions: Partial Fill upon patient request. Continued tramadol 50 mg tablet 50 mg PO BID PRN (Reason: pain) 10 Days Qty: 20 0RF atorvastatin 10 mg tablet 10 mg PO BEDTIME aspirin 81 mg tablet,delayed release (DR/EC) 81 mg PO QAM multivitamin Tablet 1 tab PO QAM ibuprofen 200 mg tablet 200 mg PO Q6H PRN (Reason: Pain) Discharge Orders: Discharge Order (Routine); Ordered 10/08/23 Ordered By: Preet Garcia Diet: Advance to usual diet Activity on Discharge: As tolerated Activity Restrictions/Additional Instructions: After your spinal surgery we ask you to observe the following restrictions/guidelines: Activity: It is normal to feel some discomfort as you increase your activity, but that will improve with time. We ask you avoid heavy lifting or acitivities that cause pain. As a general rule, 8lbs is a safe limit for lifting right after surgery. Walk as much as you feel comfortable but not to exhaustion. You will feel extra tired the first few days after surgery. Stay well hydrated. It is OK to walk up and down stairs You may return to driving when you are off narcotics (such as vicodin, oxycodone, dilaudid, etc), and you are back to normal functional capacity. If you have any concerns please check with office before driving. Return to work is specific to each patient and each surgery, so please speak with your doctor/PA at first follow up. Please bring paperwork such as FMLA at that time if you need it filled out. Medications: We will give you a short supply of narcotics after surgery (usually one weeks worth). If you need more please call the office but do not use more than prescribed. You will need to give our office 48 hours notice if you need narcotics refilled and we do not fill narcotics on weekends or evenings. If you are on a narcotic, it is a good idea to take a stool softener such as colace or senna to avoid constipation If you take blood thinner such as aspirin, Plavix, Coumadin, Effient, Eliquis etc for conditions such as Afib, DVT, Pulmonary embolus, coronary disease, stents etc please speak with your surgeon about specific details as to when you can resume these medications. You can resume NSAIDs on post op day 1 (eg: Motrin, Naproxen, etc). Follow up: Please call the office, , after surgery to arrange a 3 week follow up for wound check. Wound Care: You may remove your dressing on the first day after surgery. ?You may ?leave open to air. Please do not remove the steri strips underneath. they will fall off on their own in one week. IT IS NORMAL FOR THE WOUND TO OOZE OR BE BLOODY FOR A FEW DAYS AFTER SURGERY. ?IF THIS HAPPENS JUST PLACE NEW DRESSING OVER IT TO AVOID STAINING CLOTHES. You may shower on post op day # 1 We ask that you do not let the water soak the wound. If it does get wet, just towel dry lightly. Please do not scrub your incision or place any type of chemical/ointment on the wound. No tub baths, pools or jacuzzis for one month. If you have any leaking or redness from your wound, or fevers, please call the office.
== END 2023-10-08 17:40 | disposition home or self-care (01) ==
PROVIDERS: PCP Internal Medicine; Visit Provider Neurological Surgery
PROC: (CPT 63047; principal; 2023-10-08 14:10)
DX: M48.061 Spinal stenosis, lumbar region without neurogenic claudication (principal); G89.4 Chronic pain syndrome; R26.2 Difficulty in walking, not elsewhere classified; Z87.310 Personal history of (healed) osteoporosis fracture; Z91.81 History of falling; Z95.2 Presence of prosthetic heart valve; Z79.1 Long term (current) use of non-steroidal anti-inflammatories (NSAID); Z79.82 Long term (current) use of aspirin; Z79.899 Other long term (current) drug therapy; Z98.890 Other specified postprocedural states; Z87.891 Personal history of nicotine dependence
CPT/HCPCS: 63047; 93005; C1725; J0131; J0690; J2704; J3010

== ENCOUNTER → 2023-10-08 10:50 | Outpatient (BNV) | payer MEDICARE, SELFPAY | PROVIDERS: PCP Internal Medicine; Visit Provider Neurological Surgery | DX: M48.061 Spinal stenosis, lumbar region without neurogenic claudication (principal) | CPT/HCPCS: 63047; 99499 ==

== ENCOUNTER 2023-10-09 12:47 | Outpatient (AMB) | payer MEDICARE, SELFPAY ==
--- NOTE | 2023-10-09 13:11 | MHC.OFFVIS ---
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 He is here with his son. The patient was given tamsulosin by his primary but stopped it because he felt it made him go more frequently at night. In general he has nocturia 2 times. He has to push sometimes when urinating. Denies dysuria or blood in the urine. In review of the chart he had an abdominal ultrasound and bladder ultrasound July, findings: Bilateral renal cysts no parenchymal masses or kidney stones; diffuse bladder wall thickening consistent with outlet obstruction, estimated prostate volume 55.3 mL. PSA on chart 07/04/23 --3.55 ng/mL. AUA symptom score 9. Urinalysis negative for leukocytes or blood. Bladder scan PVR 55 mL. Plan discussed to start Proscar 5 mg daily follow-up in 10 weeks PFSH Medical History Thrombocytopenia Memory difficulties Chronic pain syndrome BPH (benign prostatic hyperplasia) Annual physical exam Osteoarthritis of right knee Anemia Ingrown toenail of both feet Aortic stenosis Right carpal tunnel syndrome Hyperlipidemia Surgical History Hx of appendectomy Hx of kyphoplasty S/P TAVR (transcatheter aortic valve replacement) (~03/2023) H/O colonoscopy Family History Father No problems noted. Mother No problems noted. Social History Housing: House Are you a primary animal caretaker to a significant other at home: No Do you presently have visiting nurse or other home services: No Alcohol intake: never Patient Tobacco Use Status: Former Tobacco user Quit Date: age 41's Tobacco use type: Cigarette, Cigar and Pipe Years Smoked: 20 e-Cigarette/Vaping Use: Never Used Current occupational status: retired Cognitive needs: No Hearing needs: Yes Vision needs: Yes Questionnaire AUA Symptom Score AUA Incomplete emptying - It does not feel like I empty my bladder all the way.: 0 - Not at all Frequency - I have to go again less than two hours after I finish urinating.: 1 - Less than 1 time in 5 Intermittency - I stop and start again several times when I urinate.: 2 - Less than half the time Urgency - It is hard to wait when I have to urinate.: 0 - Not at all Weak stream - I have a weak urinary stream.: 1 - Less than 1 time in 5 Straining - I have to push or strain to begin urination.: 3 - About half the time Nocturia - I get up to urinate after I go to bed until the time I get up in the morning.: 2 times AUA Symptom Score: 9 Quality of life due to urinary symptoms: If you were to spend the rest of your life with your urinary condition the way it is now, how would you feel about that?: Pleased Source: Rodney GEE, Liz TINSLEY Jr, O'Danyelle MP, et al, and the Measurement Committee of the [employer]. The [employer] symptom index for benign prostatic hyperplasia. J Urol. 1992; 148: 4465-9271. Copyright 1992 [place] Review of Systems Const All systems reviewed & are unremarkable except as noted in HPI and below Reports no additional complaints Eyes Reports no additional complaints ENT Reports no additional complaints Card Denies dyspnea Resp Denies cough and Denies dyspnea GI Reports no additional complaints Musc Reports no additional complaints Skin/Breast Denies rash and Denies unusual bruising Neuro Reports no additional complaints Psych Reports no additional complaints Endo Reports no additional complaints Tal/Lymph Reports no additional complaints Aller/Immun Reports no additional complaints Physical Exam Const General: healthy appearing, no acute distress and well developed Orientation/consciousness: patient oriented x3 HEENT Head: Yes normocephalic and Yes atraumatic Eyes Conjunctivae: conjunctivae normal Neck Neck: Yes normal visual inspection Chest Chest palpation & inspection: normal inspection of the chest Resp Effort & Inspection: normal respiratory effort Cardio Rate: regular rate GI Inspection: Yes normal to inspection Palpation (GI): Soft to palpation Skin General skin exam: no rashes or lesions noted Neuro General: patient oriented x3 Extrem General: No pedal edema Psych Appearance: grossly normal Affect: normal affect Office Procedures Post Void Residual Post Residual Void Post Void Residual (PVR): 55 [id number] Void Residual by ultrasound Results AMB Urinalysis, Automated UA Leukoctes 0 Nadeem/uL Last Edit by David Conde Brayan on 10/09/23 13:20 UA Nitrite Negative Last Edit by David Conde [facility] on 10/09/23 13:20 UA Urobilinogen 0.2 mg/dL Last Edit by David Conde [facility] on 10/09/23 13:20 UA Protein 15 mg/dL Last Edit by David Conde [facility] on 10/09/23 13:20 UA pH 6.0 Last Edit by David Conde [facility] on 10/09/23 13:20 UA Blood 0 Corona/uL Last Edit by David Conde [facility] on 10/09/23 13:20 UA Specific [place] 1.020 Last Edit by David Conde [facility] on 10/09/23 13:20 UA Ketone Negative Last Edit by David Conde [facility] on 10/09/23 13:20 UA Bilirubin 0 mg/dL Last Edit by David Conde [facility] on 10/09/23 13:20 UA Glucose 0 mg/dL Last Edit by David Conde [facility] on 10/09/23 13:20 Results Reviewed Results Reviewed: Laboratory Last Values Urine pH (Auto) 6.0 10/09/23 13:19 Specific [place] (Auto) 1.020 10/09/23 13:19 Urine Protein (Auto) 15 mg/dL 10/09/23 13:19 Glucose (UA)(Auto) 0 mg/dL 10/09/23 13:19 Urine Ketones (Auto) Negative 10/09/23 13:19 Urine Blood (Auto) 0 [place]/uL 10/09/23 13:19 Urine Nitrite (Auto) Negative 10/09/23 13:19 Urine Bilirubin (Auto) 0 mg/dL 10/09/23 13:19 Urine Urobilinogen (Auto) 0.2 mg/dL 10/09/23 13:19 Leukocyte Esterase (Auto) 0 Nadeem/uL 10/09/23 13:19 Date of Service: 08/10/23 EXAMINATION: US PELVIS LIMITED (BLADDER) CLINICAL INFORMATION: Benign prostatic hyperplasia without lower urinary tract symptoms. Residual urinary volume. COMPARISON: Ultrasound abdomen complete 07/29/2023. TECHNIQUE: Real-time imaging of the bladder. FINDINGS: BLADDER: Well-distended with mild diffuse wall thickening and trabeculations. Bilateral ureteral jets are demonstrated. Prevoid bladder volume is 172 mL. Postvoid bladder volume is 24.3 mL. ADDITIONAL FINDINGS: Enlarged prostate measuring 55.3 mL indenting upon the urinary bladder base. IMPRESSION: 1. Mild diffuse bladder wall thickening and trabeculations, likely related with chronic outlet obstruction. 2. Enlarged prostate with minimally increased post void residual volume. Date of Service: 07/29/23 EXAMINATION: US ABDOMEN COMPLETE CLINICAL INFORMATION: Unspecified abdominal pain. COMPARISON: None available. TECHNIQUE: Real-time imaging of the abdominal viscera. FINDINGS: PANCREAS: The pancreas is not well seen due to bowel gas. ABDOMINAL AORTA: The proximal and distal abdominal aorta are within the normal caliber. The mid abdominal aorta is obscured by bowel gas. INFERIOR VENA CAVA: Visualized portions are normal. LIVER: Normal. The liver is normal in size. The liver contour is normal. Parenchymal echogenicity is normal. No focal hepatic lesion. There is no intrahepatic biliary duct dilatation seen. GALLBLADDER: The gallbladder is physiologically distended without evidence of stones, sludge, wall thickening or pericholecystic fluid. Question of tiny polyps. COMMON BILE DUCT: Normal in caliber measuring 1.2 cm in diameter. The mid and distal common duct are obscured by bowel gas. RIGHT KIDNEY: There is a 1.4 x 1.2 x 1.4 cm simple lower pole cyst. No imaging follow-up is recommended. No hydronephrosis or renal calculi. The kidney measures 12.6 cm in maximum dimension. LEFT KIDNEY: There is a 3.2 x 3.0 x 3.6 cm simple mid renal cyst. No imaging follow-up is recommended. No hydronephrosis or renal calculi. The kidney measures 13.5 cm in maximum dimension. SPLEEN: Normal. The spleen measures 9.1 cm in maximum dimension. FREE FLUID: None. IMPRESSION: 1. There is dilatation of the common duct. The mid and distal common duct are obscured by bowel gas. CT scan of the abdomen and pelvis to evaluate for choledocholithiasis or MRCP could be performed for further evaluation. 2. Question of tiny gallbladder polyps. 3. The pancreas and mid abdominal aorta are obscured by bowel gas. Assessment & Plan Assessment & Plan (1) BPH (benign prostatic hyperplasia): Comment: will see urology Code(s): N40.0 - Benign prostatic hyperplasia without lower urinary tract symptoms (2) Weak urinary stream: Code(s): R39.12 - Poor urinary stream (3) Bladder wall thickening: Code(s): N32.89 - Other specified disorders of bladder Plan Proscar 5 mg daily follow-up in 10 weeks Orders: Orders AMB Urinalysis Automated Today Z13.9 - Encounter for screening, unspecified AMB Post Void Residual by ultrasound Today N39.8 - Other specified disorders of urinary system Medications: New finasteride (Proscar) 5 mg PO DAILY 90 days 90 tabs 3RF C61 - Malignant neoplasm of prostate Patient Instructions: The patient had an opportunity to ask questions regarding treatment plan. All questions were answered. Imaging, Laboratory studies and physical exam results were discussed and reviewed in detail. No major barriers to understanding were identified. The patient expressed understanding and agreement with the above treatment plan. The patient is aware they should contact our office by phone for worsening of their current condition or the appearance of new symptoms. Compliance is encouraged with any medications and followup testing that is ordered. It is a privilege to be allowed the opportunity to participate in the urologic care of your patient. If you have any questions or concerns regarding treatment for the above conditions please do not hesitate to contact me. The office telephone contact is [phone]. This note is constructed in part using voice recognition software. While every effort has been made to ensure accuracy dog boarder errors may have been included. Yours sincerely, Danielle Rose MD Quality Reporting (2019) Benign Prostatic Hyperplasia ([facility] 771) AUA symptom score: 9 Quality of life due to urinary symptoms: If you were to spend the rest of your life with your urinary condition the way it is now, how would you feel about that?: Pleased Coding Level of Care Code New Pt Level 4 (55283) Diagnoses BPH (benign prostatic hyperplasia) N40.0 Weak urinary stream R39.12 Bladder wall thickening N32.89 CPT Codes Post Residual Void - PVR CPT Code: 07010-Vvja Void Residual by ultrasound ([id number])
== END 2023-10-09 13:36 | disposition home or self-care (01) ==
PROVIDERS: PCP Internal Medicine; Visit Provider Urology
DX: N40.0 Benign prostatic hyperplasia without lower urinary tract symptoms (principal); R39.12 Poor urinary stream; N32.89 Other specified disorders of bladder; Z13.9 Encounter for screening, unspecified
CPT/HCPCS: 99204

== ENCOUNTER → 2023-10-09 12:47 | Outpatient (BNVA) | payer MEDICARE, SELFPAY | PROVIDERS: PCP Internal Medicine; Visit Provider Urology | DX: N40.1 Benign prostatic hyperplasia with lower urinary tract symptoms (principal); R39.12 Poor urinary stream; N32.89 Other specified disorders of bladder; N39.8 Other specified disorders of urinary system; C61 Malignant neoplasm of prostate; Z79.899 Other long term (current) drug therapy | CPT/HCPCS: 51798; 81003; 99202 ==

== ENCOUNTER 2023-10-30 09:51 | Outpatient (AMB) | payer MEDICARE, SELFPAY ==
--- NOTE | 2023-10-30 09:56 | A.SPINEOV_ITS ---
Intake Intake Visit Reasons: 1st post op Intake Note: Mr. 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 He reports he is very satisfied with his surgery and feels much better than he did pre- operatively. 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 He has no longer taking his pain medications, and feels as though he is walking better. Unfortunately he does have a confounding factor of a right knee injury which he may need to have her knee replacement on, therefore he continues to ambulate with a cane. He has no new neurological deficits. He ambulates well utilizing his cane, and rises from a seated position without much difficulty. His posterior incision site appears almost completely healed and looks very good. No drainage. There is no need for continued routine follow-up with Herb, he may be d ischarged as a patient. 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
== END 2023-10-30 10:19 | disposition home or self-care (01) ==
PROVIDERS: PCP Internal Medicine; Visit Provider Physician Assistant
DX: Z98.890 Other specified postprocedural states (principal)
CPT/HCPCS: 99024

== ENCOUNTER → 2023-10-30 09:51 | Outpatient (BNVA) | payer MEDICARE, SELFPAY | PROVIDERS: PCP Internal Medicine; Visit Provider Physician Assistant | DX: Z48.89 Encounter for other specified surgical aftercare (principal); Z98.890 Other specified postprocedural states | CPT/HCPCS: 99212 ==

== ENCOUNTER 2023-12-07 08:31 | Outpatient (AMB) | payer MEDICARE, SELFPAY ==
--- NOTE | 2023-12-07 09:03 | MHC.OFFVIS ---
Intake Visit Reasons: Inj - Right Knee OA - Last Injected 06/06/22 Intake Note: Herb is an 88 year old male who presents today for a right knee injection, last injection was done 06/06/22. Paitent reports that he would like to have repeat injection today. Allergies No Known Allergies Allergy (Verified 10/30/23 09:57) HPI HPI Inj - Right Knee OA - Last Injected 06/06/22: Details: Herb is an 88 year old male who presents today for a right knee injection, last injection was done 06/06/22. Paitent reports that he would like to have repeat injection today. Herb wears an unloading brace and remains active. He is here today with his son. [facility] Medical History Thrombocytopenia Memory difficulties Chronic pain syndrome BPH (benign prostatic hyperplasia) Annual physical exam Osteoarthritis of right knee Anemia Ingrown toenail of both feet Aortic stenosis Right carpal tunnel syndrome Hyperlipidemia Surgical History Hx of appendectomy Hx of kyphoplasty S/P TAVR (transcatheter aortic valve replacement) (~03/2023) H/O colonoscopy Family History Father No problems noted. Mother No problems noted. Social History Housing: House Are you a primary director of career resources to a significant other at home: No Do you presently have visiting nurse or other home services: No Alcohol intake: never Patient Tobacco Use Status: Former Tobacco user Quit Date: age 41's Tobacco use type: Cigarette, Cigar and Pipe Years Smoked: 20 e-Cigarette/Vaping Use: Never Used Current occupational status: retired Cognitive needs: No Hearing needs: Yes Vision needs: Yes Physical Exam Extrem Other: Right knee with medial compartment tenderness to palpation and varus malalignment. Office Procedures Joint Injection/Drain Joint Injection/Drain Details: Injected 1 mL of Decadron and 3 mL 1% lidocaine and 3 mL of 0.25% Marcaine. Site was prepped using aseptic technique. Patient tolerated the procedure well. Primary Site: right knee Approach Used: anterolateral Coding - Large joint Procedure code (CPT) selection complete Assessment & Plan Assessment & Plan (1) Osteoarthritis of right knee: Code(s): M17.11 - Unilateral primary osteoarthritis, right knee Category: Medical Plan: I injected right knee today. We discussed activity modification. He seems pretty uninterested in that. He can follow up in no sooner than 3 months for repeat injection if so desired. Plan I injected his right knee today Coding Level of Care Code Est Pt Level 3 (44005) Diagnoses Osteoarthritis of right knee M17.11 CPT Codes Coding - Large joint: 46296 - Large joint ([id number])
== END 2023-12-07 09:23 | disposition home or self-care (01) ==
PROVIDERS: PCP Internal Medicine; Visit Provider Orthopaedic Surgery
DX: M17.11 Unilateral primary osteoarthritis, right knee (principal)
CPT/HCPCS: 20610; 99213

== ENCOUNTER → 2023-12-07 08:31 | Outpatient (BNVA) | payer MEDICARE, SELFPAY | PROVIDERS: PCP Internal Medicine; Visit Provider Orthopaedic Surgery | DX: M17.11 Unilateral primary osteoarthritis, right knee (principal) | CPT/HCPCS: 20610; 99212; J0665; J1100 ==

== ENCOUNTER 2023-12-24 08:23 | Outpatient (AMB) | payer MEDICARE, SELFPAY ==
--- NOTE | 2023-12-24 08:27 | A.OFFVIS_ITS ---
Intake Visit Reasons: 10w follow up Intake Note: Patient presents today for a follow-up on BPH: Meds- Finasteride Allergies to Antibiotic- No Known Allergies Blood Thinner- Aspirin Post Void Residual: 17 mL Interactive Web Developer Required: No Accompanied by: Son Allergies No Known Allergies Allergy (Verified 10/30/23 09:57) Medication List - Last Reconciled 12/24/23 by Danielle Rose MD aspirin 81 mg PO QAM atorvastatin 10 mg PO BEDTIME finasteride (Proscar) 5 mg PO DAILY 90 days ibuprofen 200 mg PO Q6H PRN multivitamin 1 tab PO QAM oxycodone 5 mg PO Q6H PRN HPI Comments Details: 12/24/23--Herb is an 88-year-old male who was initially evaluated on 10/09/2023 for lower urinary tract symptoms secondary to BPH. He was given tamsulosin by his PCP which he felt exacerbated his urinary frequency. I prescribed Proscar 5 mg daily. He is here in follow-up with his son. He states he is doing well on the Proscar. Urinalysis leukocytes negative blood negative. Bladder scan PVR 17 mL. Will continue the Proscar 5 mg. Prior bladder ultrasound noted bladder wall thickening. Renal ultrasound ordered. Follow-up in 9 months, patient to call prior for any bothersome symptoms. Review of chart: 10/09/23--Herb is an 87-year-old male who is here for evaluation BPH. He is here with his son. The patient was given tamsulosin by his primary but stopped it because he felt it made him go more frequently at night. In general he has nocturia 2 times. He has to push sometimes when urinating. Denies dysuria or blood in the urine. In review of the chart he had an abdominal ultrasound and bladder ultrasound July, findings: Bilateral renal cysts no parenchymal masses or kidney stones; diffuse bladder wall thickening consistent with outlet obstruction, estimated prostate volume 55.3 mL. PSA on chart 07/04/23 --3.55 ng/mL. AUA symptom score 9. Urinalysis negative for leukocytes or blood. Bladder scan PVR 55 mL. Plan discussed to start Proscar 5 mg daily follow-up in 10 weeks [facility] Medical History Thrombocytopenia Memory difficulties Chronic pain syndrome BPH (benign prostatic hyperplasia) Annual physical exam Osteoarthritis of right knee Anemia Ingrown toenail of both feet Aortic stenosis Right carpal tunnel syndrome Hyperlipidemia Surgical History Hx of appendectomy Hx of kyphoplasty S/P TAVR (transcatheter aortic valve replacement) (~03/2023) H/O colonoscopy Family History Father No problems noted. Mother No problems noted. Social History Housing: House Are you a primary critical care unit nurse to a significant other at home: No Do you presently have visiting nurse or other home services: No Alcohol intake: never Patient Tobacco Use Status: Former Tobacco user Tobacco use type: Cigarette, Cigar and Pipe Years Smoked: 20 e-Cigarette/Vaping Use: Never Used Current occupational status: retired Cognitive needs: No Hearing needs: Yes Vision needs: Yes Review of Systems Const All systems reviewed & are unremarkable except as noted in HPI and below Reports no additional complaints Eyes Reports no additional complaints ENT Reports no additional complaints Card Reports no additional complaints Resp Reports no additional complaints GI Reports no additional complaints Reports as per HPI Musc Reports no additional complaints Skin/Breast Reports system reviewed and no additional complaints, except as documented Neuro Reports no additional complaints Psych Reports no additional complaints Endo Reports no additional complaints Tal/Lymph Reports no additional complaints Aller/Immun Reports no additional complaints Office Procedures Post Void Residual Post Residual Void Post Void Residual (PVR): 17 [id number] Void Residual by ultrasound Results AMB Urinalysis, Automated UA Leukoctes 0 Nadeem/uL Last Edit by ALLISON Champagne on 12/24/23 08:41 UA Nitrite Negative Last Edit by ALLISON Champagne on 12/24/23 08:41 UA Urobilinogen 0.2 mg/dL Last Edit by David EltonALLISON hough on 12/24/23 08:4 1 UA Protein 15 mg/dL Last Edit by David Elton, Brayan on 12/24/23 08:41 UA pH 5.5 Last Edit by Densiasolitariorachel De La Rosagianluca Brayan on 12/24/23 08:41 UA Blood 0 Corona/uL Last Edit by Denisasolitariorachel De La Rosagianluca Brayan on 12/24/23 08:41 UA Specific [place] 1.030 Last Edit by David Elton, Brayan on 12/24/23 08: 41 UA Ketone Negative Last Edit by Denisadoug Elton, Brayan on 12/24/23 08:41 UA Bilirubin 0 mg/dL Last Edit by Denisadoug Elton, Brayan on 12/24/23 08:41 UA Glucose 0 mg/dL Last Edit by David De La Rosagianluca Brayan on 12/24/23 08:41 Results Reviewed Results Reviewed: Date of Service: 08/10/23 EXAMINATION: US PELVIS LIMITED (BLADDER) CLINICAL INFORMATION: Benign prostatic hyperplasia without lower urinary tract symptoms. Residual urinary volume. COMPARISON: Ultrasound abdomen complete 07/29/2023. TECHNIQUE: Real-time imaging of the bladder. FINDINGS: BLADDER: Well-distended with mild diffuse wall thickening and trabeculations. Bilateral ureteral jets are demonstrated. Prevoid bladder volume is 172 mL. Postvoid bladder volume is 24.3 mL. ADDITIONAL FINDINGS: Enlarged prostate measuring 55.3 mL indenting upon the urinary bladder base. IMPRESSION: 1. Mild diffuse bladder wall thickening and trabeculations, likely related with chronic outlet obstruction. 2. Enlarged prostate with minimally increased post void residual volume. Date of Service: 07/29/23 EXAMINATION: US ABDOMEN COMPLETE CLINICAL INFORMATION: Unspecified abdominal pain. COMPARISON: None available. TECHNIQUE: Real-time imaging of the abdominal viscera. FINDINGS: PANCREAS: The pancreas is not well seen due to bowel gas. ABDOMINAL AORTA: The proximal and distal abdominal aorta are within the normal caliber. The mid abdominal aorta is obscured by bowel gas. INFERIOR VENA CAVA: Visualized portions are normal. LIVER: Normal. The liver is normal in size. The liver contour is normal. Parenchymal echogenicity is normal. No focal hepatic lesion. There is no intrahepatic biliary duct dilatation seen. GALLBLADDER: The gallbladder is physiologically distended without evidence of stones, sludge, wall thickening or pericholecystic fluid. Question of tiny polyps. COMMON BILE DUCT: Normal in caliber measuring 1.2 cm in diameter. The mid and distal common duct are obscured by bowel gas. RIGHT KIDNEY: There is a 1.4 x 1.2 x 1.4 cm simple lower pole cyst. No imaging follow-up is recommended. No hydronephrosis or renal calculi. The kidney measures 12.6 cm in maximum dimension. LEFT KIDNEY: There is a 3.2 x 3.0 x 3.6 cm simple mid renal cyst. No imaging follow-up is recommended. No hydronephrosis or renal calculi. The kidney measures 13.5 cm in maximum dimension. SPLEEN: Normal. The spleen measures 9.1 cm in maximum dimension. FREE FLUID: None. IMPRESSION: 1. There is dilatation of the common duct. The mid and distal common duct are obscured by bowel gas. CT scan of the abdomen and pelvis to evaluate for choledocholithiasis or MRCP could be performed for further evaluation. 2. Question of tiny gallbladder polyps. 3. The pancreas and mid abdominal aorta are obscured by bowel gas. Assessment & Plan Assessment & Plan (1) BPH (benign prostatic hyperplasia): Comment: will see urology Code(s): N40.0 - Benign prostatic hyperplasia without lower urinary tract symptoms Category: Medical (2) Weak urinary stream: Code(s): R39.12 - Poor urinary stream Category: Medical (3) Bladder wall thickening: Code(s): N32.89 - Other specified disorders of bladder Category: Medical Plan Continue the Proscar 5 mg. Renal ultrasound ordered. Once I review the ultrasound as long as it is normal I will have my nurse give him the results. Follow-up in 9 months, patient to call prior for any bothersome symptoms. Orders: Orders AMB Urinalysis Automated Today Z13.9 - Encounter for screening, unspecified AMB Post Void Residual by ultrasound Today N39.8 - Other specified disorders of urinary system US renal BI Today N40.0 - Benign prostatic hyperplasia without lower urinary tract symptoms Patient Instructions: The patient had an opportunity to ask questions regarding treatment plan. The patient expressed understanding and agreement with the above treatment plan. The patient is aware they should contact our office by phone for worsening of their current condition or the appearance of new symptoms. Compliance is encouraged with any medications and followup testing that is ordered. It is a privilege to be allowed the opportunity to participate in the urologic care of your patient. If you have any questions or concerns regarding treatment for the above conditions please do not hesitate to contact me. The office telephone contact is [phone]. This note is constructed in part using voice recognition software. While every effort has been made to ensure accuracy ash collector errors may have been included. Yours sincerely, Danielle Rose MD Coding Level of Care Code Est Pt Level 4 (67525) Diagnoses BPH (benign prostatic hyperplasia) N40.0 Weak urinary stream R39.12 Bladder wall thickening N32.89 CPT Codes Post Residual Void - PVR CPT Code: 06709-Xewk Void Residual by ultrasound ([id number])
== END 2023-12-24 08:50 | disposition home or self-care (01) ==
PROVIDERS: PCP Internal Medicine; Visit Provider Urology
DX: N40.0 Benign prostatic hyperplasia without lower urinary tract symptoms (principal); R39.12 Poor urinary stream; N32.89 Other specified disorders of bladder; Z13.9 Encounter for screening, unspecified
CPT/HCPCS: 99214

== ENCOUNTER → 2023-12-24 08:23 | Outpatient (BNVA) | payer MEDICARE, SELFPAY | PROVIDERS: PCP Internal Medicine; Visit Provider Urology | DX: N40.0 Benign prostatic hyperplasia without lower urinary tract symptoms (principal); R35.0 Frequency of micturition; R39.12 Poor urinary stream | CPT/HCPCS: 51798; 81003; 99212 ==

== ENCOUNTER → 2024-04-25 13:53 | Outpatient (REF) | payer MEDICARE, SELFPAY ==
--- NOTE | 2024-04-25 13:57 | CA_ITS ---
Transthoracic Echocardiogram Patient (Last, First, Middle): Herb Quintero, Gender: Male Date of : 1935 Age: 88 Procedure Date: 04/25/2024 Procedure Type: Transthoracic Echocardiogram Location: OP Height: 172.72 cm Weight: 97.52 kg BSA: 2.11 m2 Heart Rate: 76 bpm BP: 142 / 80 mmHg Director Safety Council: SB Referring MD: Josh Coulter MD Symptoms: S/P TRANSAORTIC VALVE REPLACEMENT Study Quality: Fair ECG Rhythm: Sinus Conclusions: - 1. Normal LV ejection fraction of 60 65% with mild LVH with impaired relaxation filling pattern 2. Normally function bioprosthetic aortic valve 3. Normal RV systolic pressure 4. 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 No pericardial effusion Findings Left Ventricle Normal left ventricular size and systolic function. There is mildly increased left ventricular wall thickness. The visually estimated ejection fraction is between 60-65%. Spectral Doppler is indicative of an impaired relaxation filling pattern. E/E prime ratio is between 8 and 15 consistent with indeterminate filling pressures. Right Ventricle Normal right ventricular cavity size and systolic function. Atria The left atrium is normal in size. Interatrial shunt cannot be excluded. The right atrium is normal in size. Aortic Valve A bioprosthetic aortic valve is present. The prosthetic aortic valve appears to be functioning normally. The mean gradient is 9 mmHg. There is no aortic valve regurgitation. Mitral Valve There is mild anterior and posterior mitral leaflet thickening. There is mild anterior mitral annular calcification. There is trace mitral valve regurgitation. There is no mitral valve stenosis. Pulmonic Valve The pulmonic valve was not well visualized. Tricuspid Valve Likely normal tricuspid valve structure and function. There is trace tricuspid valve regurgitation. The right ventricular systolic pressure is normal. The right ventricular systolic pressure is 26 mmHg. Normal right atrial pressure. There is no evidence of pulmonary hypertension. Great Vessels All visible segments of the aorta are normal in size. The pulmonary artery was not well visualized. There is mild dilatation of the ascending aorta measuring 3.90 cm. Venous The inferior vena cava is normal in size and collapses greater than 50% with inspiration. Pericardium/Pleural There is no evidence of pericardial effusion. Prior Study Comparison No significant change compared to prior study dated: 05/05/2023. Measurements 2D Linear Measurements IVSd: 1.39 0.6-0.9/0.6-1.0 cm LVIDd: 5.27 3.9-5.3/4.2-5.9 cm LVIDd Index: 2.50 2.4-3.2/2.2-3.1 cm/m2 LVIDs: 3.21 2.0-3.6 cm LVPWd: 1.34 0.7-1.1 cm LA Diam: 4.40 2.7-3.8/3.0-4.0 cm LAIDs Index: 2.09 1.5-2.3 cm/m2 LV Mass: 302.88 67-162/88-224 g LV Mass Index: 143.54 43-95/49-115 g/m2 LVOT Diam: 2.40 3.0+(-)1.3 cm 2D Systolic Function EF 4C: 66.30 >55% EF 2C: 54.50 >55% EF BiP: 61.60 >55% Mitral Valve MV Pk E: 0.67 MV PK A: 0.75 MV Decel Time: 312.00 E/A: 0.90 E'Lateral: 4.03 E'Medial: 4.13 E/E' Med: 16.20 E/E' Lat: 16.60 PHT: 91.00 MVA PHT: 2.42 Decel [place]: 2.14 Aortic Valve AoV Pk Ish: 1.92 AoV Mn Ish: 1.38 AoV VTI: 0.34 AoV Pk Grad: 15.00 Aov Mn Grad: 9.00 ALHAJI Cont.VTI: 2.71 LVOT LVOT Pk Ish: 1.01 LVOT Mn Ish: 0.70 LVOT VTI: 0.21 LVOT Pk Grad: 4.00 LVOT Mn Grad: 2.00 LVOT Diam: 2.40 LVOT Area: 4.52 Diastolic Function MV Pk E: 0.67 MV Pk A: 0.75 E/A: 0.90 E'Medial: 4.13 E/E' Med: 16.20 E' Laterial: 4.03 E/E' Lat: 16.60 Right Ventricle TAPSE (mm): 20.30 TVS' Ish: 12.60 Tricuspid Valve TR Pk Ish: 2.42 TR Pk Grad: 23.00 RA Press: 3.00 RVSP: 26.00 Great Vessels Aorta Ao Asc: 3.90 2.1-3.4 cm Pulmonary Veins Pulm Vein S/D 1.40 Pulmonary Valve PV Pk Ish: 0.73 Peak PV Grad: 2.00 Updated in Other Vendor System with Status of Final Glenn Ojeda MD electronically signed on 04/26/2024 10:59:53 AM with status of Final
== END ==
LOC: HO.CARD 13:53
PROVIDERS: Visit Provider Internal Medicine Interventional Cardiology
DX: Z95.2 Presence of prosthetic heart valve (principal)
CPT/HCPCS: 93306

== ENCOUNTER → 2024-04-25 13:57 | Outpatient (BNV) | payer MEDICARE, SELFPAY | PROVIDERS: Visit Provider Internal Medicine Cardiovascular Disease | DX: I34.81 Nonrheumatic mitral (valve) annulus calcification (principal); Z95.3 Presence of xenogenic heart valve; R93.1 Abnormal findings on diagnostic imaging of heart and coronary circulation | CPT/HCPCS: 93306 ==

== ENCOUNTER 2024-07-06 08:33 | Outpatient (AMB) | payer MEDICARE, SELFPAY ==
[2024-07-06 08:34] VITALS: BP 132/62; PULSE 90; O2SAT 98; BMI 32.5
--- NOTE | 2024-07-06 08:34 | A.OFFVIS_ITS ---
Intake Vital Signs 07/06/24 08:34 Height 5 ft 9 in Weight 220 lb BMI 32.5 BP 132/62 Blood Pressure Location Lt brachial Position Sitting Pulse 90 Pulse Source Pulse Oximeter Pulse Oximetry (%) 98 Oxygen Delivery Method Room Air Intake Visit Reasons: SWV G0439 Allergies No Known Allergies Allergy (Verified 07/06/24 08:40) Medication List - Last Reconciled 07/06/24 by Estee Butler MD aspirin 81 mg PO QAM atorvastatin 10 mg PO BEDTIME finasteride (Proscar) 5 mg PO DAILY 90 days ibuprofen 200 mg PO Q6H PRN multivitamin 1 tab PO QAM HPI SWV G0439 HPI Details Initiated the conversation about Advanced Directives. Advanced Directives help? patients prepare for current and future decisions about their medical treatment? and place of care. Discussed with patient that it is a process where a patients? current condition and prognosis are reviewed, their wishes for information? regarding their illness are elicited, and likely medical dilemmas are presented? and options discussed. The form can be amended as needed, reviewed yearly and? make changes as needed IPPE/AWV ? year old presents? for her ? Annual? Wellness Visit, initial visit.? Medical / Social History Reviewed? Past Medical History ?Yes? . ? [place]? of Care / Care Team list updated ?Yes . ? Surgical/Hospitalization? History ?Yes . ? Current Medications? (including OTC and supplements) ?Yes . ? Family History ?Yes? . ? Tobacco? Control form ?Yes . ? AUDIT-C (Alcohol use) form? ?Yes . ? Illicit drug use in Social? History ?Yes . ? Current diagnosis of? depression? ?No ? Appropriate PHQ2/PHQ9? completed ?Yes . ? Data entered by ?Medical? Instrument Repairer Helper and reviewed by provider ? Fall Risk ? Fall? History? Have you had any falls with? injury in the past year? ?No . ? Have you had two or more? falls in the past year? ?No . ? Fall Risk Assessment: ?No? falls in the past year . ? HRA filled out by? the patient, reviewed by Provider and scanned. ? IPPE/AWV ? Balance? [place]? ?Yes . ? Tandem? walk ?Yes . ? Walk and? Turn ?Yes . ? Rise from? sit to stand ?Yes . ?Vision? Corrective? lens ?Yes ? Vision? screen ? Up-to-date, has an appointment [] for vision? screening and glaucoma screening ?Hearing? Whisper? test ?pass .? Initiated the conversation about Advanced Directives. Advanced Directives help? patients prepare for current and future decisions about their medical treatment? and place of care. Discussed with patient that it is a process where a patients? current condition and prognosis are reviewed, their wishes for information? regarding their illness are elicited, and likely medical dilemmas are presented? and options discussed. The form can be amended as needed, reviewed yearly and? make changes as needed Written? Plan?Completed. See Patient? Documents. [facility], [facility] Medical History Thrombocytopenia Memory difficulties Chronic pain syndrome BPH (benign prostatic hyperplasia) Annual physical exam Osteoarthritis of right knee Anemia Ingrown toenail of both feet Aortic stenosis Right carpal tunnel syndrome Hyperlipidemia Surgical History Hx of appendectomy Hx of kyphoplasty S/P TAVR (transcatheter aortic valve replacement) (~03/2023) H/O colonoscopy Family History Father No problems noted. Mother No problems noted. Social History Housing: House Are you a primary overnight caregiver to a significant other at home: No Do you presently have visiting nurse or other home services: No Alcohol intake: never Patient Tobacco Use Status: Former Tobacco user Tobacco use type: Cigarette, Cigar and Pipe Years Smoked: 20 e-Cigarette/Vaping Use: Never Used Current occupational status: retired Cognitive needs: No Hearing needs: Yes Vision needs: Yes Questionnaire Medicare Wellness Checkup What is your age?: 81 or older What gender do you identify with?: male During the past 4 weeks, how much have you been bothered by emotional problems such as feeling anxious, depressed, irritable, sad or downhearted, and blue?: moderately During the past 4 weeks, has your physical & emotional health limited your social activities with family, friends, neighbors, or groups?: quite a bit During the past 4 weeks, how much bodily pain have you generally had?: severe pain During the past 4 weeks, was someone available to help you if you needed & wanted help?: yes, quite a bit During the past 4 weeks, what was the hardest physical activity you could do for at least 2 minutes?: moderate Can you get to places out of walking distance without help? (For eg., can you travel alone on buses, taxis or drive your car?): Yes Can you go shopping for groceries or clothes without someone's help?: Yes Can you prepare your own meals?: Yes Can you do your housework without help?: Yes Because of any health problems, do you need the help of another person with your personal care needs such as eating, bathing, dressing or getting around the house?: Yes Can you handle your own money without help?: Yes During the past 4 weeks, how would you rate your health in general?: poor During the past 4 weeks how have things been going for you?: pretty bad Are you having difficulties driving your car?: sometimes Do you always fasten your seat belt when you are in a car?: yes, usually During past 4 weeks, have you been bothered by the following: never: Falling or dizzy when standing up, Sexual problems? and Problems using the telephone?, seldom: Teeth or denture problems?, sometimes: Trouble eating well? and often: Tiredness or fatigue? Have you fallen 2 or more times in the past year?: Yes Are you afraid of falling?: Yes Are you a smoker?: no During the past 4 weeks, how many drinks of wine, beer, or other alcoholic beverages did you have?: 1 drink or less per week Do you exercise for about 20 minutes 3 or more times a week?: no, I usually do not exercise this much Have you been given information to help with the following?: no: Hazards in your house that might hurt you? and no: Keeping track of your medications? How often do you have trouble taking medicines the way you have been told to take them?: I always take medicine as prescribed How confident are you that you can control & manage most of your health problems?: not very confident What is your race?: White Mini Mental State Exam (MMSE) Orientation What is the (year) (season) (date) (day) (month)?: year, season, date, day and month Where are we (state) (county) (town or city) (hospital) (floor)?: state, county, town or city, hospital/clinic and floor Registration Name of 3 unrelated objects clearly and slowly, then ask patient to repeat all 3 of them. (1st repeat determines score. Make sure they can repeat all three): object 1, object 2 and object 3 Attention & Calculation (CHOOSE ONE) Spell WORLD backwards (DLROW): 5 letters Recall Ask patient to repeat the 3 items from question #3.: object 1, object 2 and object 3 Language Show patient a wristwatch & ask what it is. Repeat for pencil.: watch and pencil Ask the patient to repeat the phrase 'No ifs, ands, or buts' after you.: correct Ask the patient to 'take a piece of paper with their right hand' 'fold paper in half' 'place paper on floor': take paper in right hand, fold paper in half and place paper on floor Print the sentence 'CLOSE YOUR EYES' on a piece. If patient actually closes eyes then score.: followed written direction Give patient a blank piece of paper & ask to write a sentence. Score if it contains a noun & verb.: sentence contains subject and verb Score Score: 29 PHQ-9 Over the last 2 weeks, how often have you been bothered by any of the following problems? 1. Little interest or pleasure in doing things: not at all 2. Feeling down, depressed, or hopeless: not at all 3. Trouble falling or staying asleep, or sleeping too much: not at all 4. Feeling tired or having little energy: not at all 5. Poor appetite or overeating: not at all 6. Feeling bad about yourself - or that you are a failure or have let yourself or your family down: not at all 7. Trouble concentrating on things, such as reading the newspaper or watching television: not at all 8. Moving or speaking so slowly that other people could have noticed. Or the opposite - being so fidgety or restless that you have been moving around a lot more than usual: not at all 9. Thoughts that you would be better off or of hurting yourself in some way: not at all Total score: 0 Depression Screening Interpretation: Negative Depression Screening Done: Yes 77751 - PHQ-9 Billing: Yes Source: Developed by Drs. Shashank Kimbrough, Georgina Turner, Sarthak Askew and colleagues, with an educational luther from [employer]. Review of Systems Const All systems reviewed & are unremarkable except as noted in HPI and below Eyes Reports no additional complaints ENT Reports no additional complaints Card Reports no additional complaints Resp Reports no additional complaints GI Reports no additional complaints Reports no additional complaints Musc Reports no additional complaints Physical Exam Vital Signs: Last Vital Signs Pulse 90 07/06/24 08:34 BP 132/62 07/06/24 08:34 Pulse Ox 98 07/06/24 08:34 Oxygen Delivery Method Room Air 07/06/24 08:34 BMI result Body Mass Index 32.5 Const General: no acute distress HEENT Head: Yes normal to inspection Ears: hearing grossly normal bilaterally Neck Neck: Yes no lymphadenopathy and Yes supple Resp Effort & Inspection: normal respiratory effort Auscultation: clear to auscultation bilaterally Cardio Rhythm: regular rhythm Heart sounds: S1 normal heart sound present and S2 normal heart sound present GI Inspection: Yes normal to inspection Palpation (GI): Soft to palpation Percussion: Yes normal to percussion Auscultation: normal bowel sounds Extrem General: Yes no clubbing, cyanosis or edema Assessment & Plan Assessment & Plan (1) BPH (benign prostatic hyperplasia): Comment: On finasteride Code(s): N40.0 - Benign prostatic hyperplasia without lower urinary tract symptoms Plan: Continue finasteride (2) Annual physical exam: Code(s): Z00.00 - Encounter for general adult medical examination without abnormal findings Plan: Well-balanced diet regular physical activity discussed with the patient. Follow-up in 6 months. Patient will return for fasting blood work (3) Hyperlipidemia: Code(s): E78.5 - Hyperlipidemia, unspecified Plan: Continue statin (4) Hyperglycemia: Code(s): R73.9 - Hyperglycemia, unspecified Plan: ADA diet Orders: Orders Lipid Panel Today E78.5 - Hyperlipidemia, unspecified, R73.9 - Hyperglycemia, unspecified, Z00.00 - Encounter for general adult medical examination without abnormal findings Comprehensive Met. Panel Today E78.5 - Hyperlipidemia, unspecified, R73.9 - Hyperglycemia, unspecified, Z00.00 - Encounter for general adult medical examination without abnormal findings Complete Blood Count Auto Diff Today E78.5 - Hyperlipidemia, unspecified, R73.9 - Hyperglycemia, unspecified, Z00.00 - Encounter for general adult medical examination without abnormal findings Hemoglobin A1c Today E78.5 - Hyperlipidemia, unspecified, R73.9 - Hyperglycemia, unspecified, Z00.00 - Encounter for general adult medical examination without abnormal findings Vitamin B12 and Folate Today E78.5 - Hyperlipidemia, unspecified, R73.9 - Hype rglycemia, unspecified, Z00.00 - Encounter for general adult medical examination without abnormal findings Quality Reporting (2019) Depression/Bipolar (159/160/161/177) PHQ-9: Total score: 0 Coding Level of Care Code Medicare Subsequent (G0439) Diagnoses BPH (benign prostatic hyperplasia) N40.0 Annual physical exam Z00.00 Hyperlipidemia E78.5 Hyperglycemia R73.9 CPT Codes Advance Care Planning - Advance Care Planning discussion: On file, no changes ([id number]) Advance Care Planning - Time spent: 1-15 minutes, on File ([id number]) Additional Codes PHQ-9 - 31755 - PHQ-9 Billing: Yes ([id number]) Advance Care Planning Advance Care Planning discussion: On file, no changes Forms completed: Health Care Proxy Time spent: 1-15 minutes, on File Did not discuss due to Cultural/Spiritual beliefs: Yes
== END 2024-07-06 09:25 | disposition home or self-care (01) ==
PROVIDERS: PCP Internal Medicine; Visit Provider Internal Medicine
DX: Z00.00 Encounter for general adult medical examination without abnormal findings (principal); N40.0 Benign prostatic hyperplasia without lower urinary tract symptoms; E78.5 Hyperlipidemia, unspecified; R73.9 Hyperglycemia, unspecified

== ENCOUNTER → 2024-07-06 08:33 | Outpatient (BNVA) | payer MEDICARE, SELFPAY | PROVIDERS: PCP Internal Medicine; Visit Provider Internal Medicine | DX: Z00.00 Encounter for general adult medical examination without abnormal findings (principal); N40.0 Benign prostatic hyperplasia without lower urinary tract symptoms; R73.9 Hyperglycemia, unspecified; E78.5 Hyperlipidemia, unspecified | CPT/HCPCS: 96127 ==

== ENCOUNTER 2024-07-07 07:28 | Outpatient (REF) | payer MEDICARE, SELFPAY ==
[2024-07-07 10:05] LABS: MANUAL DIFF FLAG NO
[2024-07-07 10:13] LABS: Basophils Percent Auto 0.6 % (0-2); Eosinophils Absolute Auto 0.1 X10*3/uL (0.0-0.4); Eosinophils Percent Auto 2.8 % (0-4); Hematocrit 39.5 % (42.0-52.0); Hemoglobin 13.8 g/dl (14.0-18.0); Imm Gran Abs Auto 0.01 X10*3/uL (0.00-0.03); Imm Gran Pct Auto 0.2 % (0.0-0.4); Lymphocytes Absolute Auto 1.5 X10*3/uL (1.2-4.9); Lymphocytes Percent Auto 33.1 % (20-40); Mean Corpuscular HGB Conc 34.9 g/dl (31.0-36.0); Mean Corpuscular Hemoglobin 33.6 pg (27.0-33.0); Mean Corpuscular Volume 96.1 fL (80.0-98.0); Mean Platelet Volume 10.1 fL (9.4-12.4); Monocytes Absolute Auto 0.5 X10*3/uL (0.1-1.2); Monocytes Percent Auto 9.9 % (2-11); Neutrophils Absolute Auto 2.5 x10*3/uL (2.0-8.3); Neutrophils Percent Auto 53.4 % (45-73); Platelet Count 108 X10*3/uL (160-400); Red Blood Count 4.11 X10*6/uL (4.60-5.80); Red Cell Distribution Width 12.2 % (11.0-16.0); White Blood Count 4.7 X10*3/uL (4.8-10.8)
[2024-07-07 10:17] LABS: Estimated Average Glucose 123 mg/dL; Hemoglobin A1C 142.4073 umol/L; Hemoglobin A1c % 5.9 % (<6.0)
[2024-07-07 10:26] LABS: Alanine Aminotransferase 31 U/L (0-40); Albumin Level 3.8 g/dL (3.5-5.0); Alkaline Phosphatase 65 U/L (39-117); Anion Gap 9 (12-20); Aspartate Amino Transferase 35 U/L (5-37); Bilirubin Total 0.8 mg/dL (0.0-1.0); Blood Urea Nitrogen 16 mg/dL (9-16); Calcium 8.8 mg/dL (8.4-10.2); Carbon Dioxide 28 mmol/L (22-29); Chloride 110 mmol/L (96-108); Cholesterol 129 mg/dL (<200); Estimated Glomerular Filt Rate > 60; Glucose Random 110 mg/dL (60-115); HDL Cholesterol 46 mg/dL (>40); LDL Cholesterol Calculated 67 mg/dL (<100); Potassium 4.3 mmol/L (3.3-5.1); Sodium 143 mmol/L (135-145); Total Protein 6.4 g/dL (6.5-8.0); Triglycerides 80 mg/dL (<150)
[2024-07-07 10:54] LABS: Folate 15.7 ng/mL (> or = 4.0); Vitamin B12 510 pg/mL (200-900)
== END 2024-07-07 07:29 | disposition home or self-care (01) ==
LOC: HO.HMGCLDS 07:28
PROVIDERS: PCP Internal Medicine; Visit Provider Internal Medicine
DX: Z00.00 Encounter for general adult medical examination without abnormal findings (principal); E78.5 Hyperlipidemia, unspecified; R73.9 Hyperglycemia, unspecified
CPT/HCPCS: 36415; 80053; 80061; 82607; 82746; 83036; 85025

== ENCOUNTER 2024-09-12 10:19 | Outpatient (REF) | payer MEDICARE, SELFPAY ==
--- NOTE | ~2024-09-12 | US_ITS ---
CLINICAL HISTORY: Benign prostatic hyperplasia without lower urinary tract symptoms US Renal Comparison: None Findings: Right kidney normal size and echotexture, 11.9 cm length. Cortical and peripelvic cysts are noted. Mild fullness of the renal pelvis. Left kidney normal size and echotexture, 12.8 cm length. Cortical and peripelvic cysts are noted. Mild fullness of the renal pelvis. No significant collecting system dilatation of either kidney. Normal color Doppler. IMPRESSION: There is mild fullness of the renal pelvis bilaterally. No significant hydronephrosis. No suspicious lesion. This document has been electronically signed by: Alejo Stover MD on 09/13/2024 13:23:49
== END 2024-09-12 10:20 | disposition home or self-care (01) ==
LOC: HO.US 10:19
PROVIDERS: PCP Internal Medicine; Visit Provider Urology
DX: N40.0 Benign prostatic hyperplasia without lower urinary tract symptoms (principal)
CPT/HCPCS: 76775

== ENCOUNTER → 2024-09-12 10:22 | Outpatient (BNV) | payer MEDICARE, SELFPAY | PROVIDERS: PCP Internal Medicine; Visit Provider Radiology Vascular & Interventional Radiology | DX: N28.1 Cyst of kidney, acquired (principal) | CPT/HCPCS: 76775 ==

== ENCOUNTER 2024-10-04 08:31 | Outpatient (AMB) | payer MEDICARE, SELFPAY ==
--- NOTE | 2024-10-04 08:36 | MHC.OFFVIS ---
Intake Visit Reasons: 9m/LANI/ BPH Intake Note: Patient is present for 9M/US/BPH Urology Medication:FINASTERIDE Antibiotic Allergy:NONE Blood Thinner:ASPIRIN Engineering Group Leader Required: No Allergies No Known Allergies Allergy (Verified 10/04/24 08:38) Medication List - Last Reconciled 10/04/24 by Danielle Rose MD aspirin 81 mg PO QAM atorvastatin 10 mg PO BEDTIME finasteride (Proscar) 5 mg PO DAILY 90 days ibuprofen 200 mg PO Q6H PRN multivitamin 1 tab PO QAM HPI Comments Details: 10/04/24--Herb is an 88-year-old male presenting with management of Benign Prostatic Hyperplasia (BPH). He has been on a treatment regimen of Proscar 5 mg daily, adhering to a consistent management plan aimed at stabilizing this condition. While detailed historical specifics on the onset and symptom impact are not provided, stability of symptoms is implied by the lack of recent changes to management or medication adjustments. Nocturia is improved from 3-4x, now one time. The patient's ongoing treatment and management strategy demonstrate a stable handling of BPH with effective pharmaceutical intervention. I have reviewed renal Ultrasound -09/12/24--results with the patient and his son mild bilateral renal fullness is clinically not significant negative for kidney stones or hydronephrosis or suspicious parenchymal lesions. 12/24/23--Herb is an 88-year-old male who was initially evaluated on 10/09/2023 for lower urinary tract symptoms secondary to BPH. He was given tamsulosin by his PCP which he felt exacerbated his urinary frequency. I prescribed Proscar 5 mg daily. He is here in follow-up with his son. He states he is doing well on the Proscar. Urinalysis leukocytes negative blood negative. Bladder scan PVR 17 mL. Will continue the Proscar 5 mg. Prior bladder ultrasound noted bladder wall thickening. Renal ultrasound ordered. Follow-up in 9 months, patient to call prior for any bothersome symptoms. 10/09/23--Herb is an 87-year-old male who is here for evaluation BPH. He is here with his son. The patient was given tamsulosin by his primary but stopped it because he felt it made him go more frequently at night. In general he has nocturia 2 times. He has to push sometimes when urinating. Denies dysuria or blood in the urine. In review of the chart he had an abdominal ultrasound and bladder ultrasound July, findings: Bilateral renal cysts no parenchymal masses or kidney stones; diffuse bladder wall thickening consistent with outlet obstruction, estimated prostate volume 55.3 mL. PSA on chart 07/04/23 --3.55 ng/mL. AUA symptom score 9. Urinalysis negative for leukocytes or blood. Bladder scan PVR 55 mL. PFSH Medical History Thrombocytopenia Memory difficulties Chronic pain syndrome BPH (benign prostatic hyperplasia) Annual physical exam Osteoarthritis of right knee Anemia Ingrown toenail of both feet Aortic stenosis Right carpal tunnel syndrome Hyperlipidemia Surgical History Hx of appendectomy Hx of kyphoplasty S/P TAVR (transcatheter aortic valve replacement) (~03/2023) H/O colonoscopy Family History Father No problems noted. Mother No problems noted. Social History Housing: House Are you a primary veterinarian laboratory animal care to a significant other at home: No Do you presently have visiting nurse or other home services: No Alcohol intake: never Patient Tobacco Use Status: Former Tobacco user Tobacco use type: Cigarette, Cigar and Pipe Years Smoked: 20 e-Cigarette/Vaping Use: Never Used Current occupational status: retired Cognitive needs: No Hearing needs: Yes Vision needs: Yes Review of Systems Const All systems reviewed & are unremarkable except as noted in HPI and below Reports no additional complaints Eyes Reports no additional complaints ENT Reports no additional complaints Card Reports no additional complaints Resp Reports no additional complaints GI Reports no additional complaints Reports as per HPI Musc Reports no additional complaints Skin/Breast Reports system reviewed and no additional complaints, except as documented Neuro Reports no additional complaints Psych Reports no additional complaints Endo Reports no additional complaints Tal/Lymph Reports no additional complaints Aller/Immun Reports no additional complaints Results AMB Urinalysis, Automated UA Leukoctes 0 Nadeem/uL Last Edit by ADA David on 10/04/24 08:49 UA Nitrite Negative Last Edit by ADA David on 10/04/24 08:49 UA Urobilinogen 3.5 mg/dL Last Edit by ADA David on 10/04/24 08:49 UA Protein 15 mg/dL Last Edit by ADA David on 10/04/24 08:49 UA pH 6.0 Last Edit by ADA David on 10/04/24 08:49 UA Blood 0 Corona/uL Last Edit by ADA David on 10/04/24 08:49 UA Specific [place] 1.025 Last Edit by ADA David on 10/04/24 08:49 UA Ketone Negative Last Edit by ADA David on 10/04/24 08:49 UA Bilirubin 0 mg/dL Last Edit by ADA David on 10/04/24 08:49 UA Glucose 0 mg/dL Last Edit by ADA David on 10/04/24 08:49 Results Reviewed Results Reviewed: Laboratory Last Values Urine pH (Auto) 6.0 10/04/24 08:49 Specific [place] (Auto) 1.025 10/04/24 08:49 Urine Protein (Auto) 15 mg/dL 10/04/24 08:49 Glucose (UA)(Auto) 0 mg/dL 10/04/24 08:49 Urine Ketones (Auto) Negative 10/04/24 08:49 Urine Blood (Auto) 0 Corona/uL 10/04/24 08:49 Urine Nitrite (Auto) Negative 10/04/24 08:49 Urine Bilirubin (Auto) 0 mg/dL 10/04/24 08:49 Urine Urobilinogen (Auto) 3.5 mg/dL 10/04/24 08:49 Leukocyte Esterase (Auto) 0 Nadeem/uL 10/04/24 08:49 Date of Service: 09/12/24 CLINICAL HISTORY: Benign prostatic hyperplasia without lower urinary tract symptoms US Renal Comparison: None Findings: Right kidney normal size and echotexture, 11.9 cm length. Cortical and peripelvic cysts are noted. Mild fullness of the renal pelvis. Left kidney normal size and echotexture, 12.8 cm length. Cortical and peripelvic cysts are noted. Mild fullness of the renal pelvis. No significant collecting system dilatation of either kidney. Normal color Doppler. IMPRESSION: There is mild fullness of the renal pelvis bilaterally. No significant hydronephrosis. No suspicious lesion. Date of Service: 08/10/23 EXAMINATION: US PELVIS LIMITED (BLADDER) CLINICAL INFORMATION: Benign prostatic hyperplasia without lower urinary tract symptoms. Residual urinary volume. COMPARISON: Ultrasound abdomen complete 07/29/2023. TECHNIQUE: Real-time imaging of the bladder. FINDINGS: BLADDER: Well-distended with mild diffuse wall thickening and trabeculations. Bilateral ureteral jets are demonstrated. Prevoid bladder volume is 172 mL. Postvoid bladder volume is 24.3 mL. ADDITIONAL FINDINGS: Enlarged prostate measuring 55.3 mL indenting upon the urinary bladder base. IMPRESSION: 1. Mild diffuse bladder wall thickening and trabeculations, likely related with chronic outlet obstruction. 2. Enlarged prostate with minimally increased post void residual volume. Date of Service: 07/29/23 EXAMINATION: US ABDOMEN COMPLETE CLINICAL INFORMATION: Unspecified abdominal pain. COMPARISON: None available. TECHNIQUE: Real-time imaging of the abdominal viscera. FINDINGS: PANCREAS: The pancreas is not well seen due to bowel gas. ABDOMINAL AORTA: The proximal and distal abdominal aorta are within the normal caliber. The mid abdominal aorta is obscured by bowel gas. INFERIOR VENA CAVA: Visualized portions are normal. LIVER: Normal. The liver is normal in size. The liver contour is normal. Parenchymal echogenicity is normal. No focal hepatic lesion. There is no intrahepatic biliary duct dilatation seen. GALLBLADDER: The gallbladder is physiologically distended without evidence of stones, sludge, wall thickening or pericholecystic fluid. Question of tiny polyps. COMMON BILE DUCT: Normal in caliber measuring 1.2 cm in diameter. The mid and distal common duct are obscured by bowel gas. RIGHT KIDNEY: There is a 1.4 x 1.2 x 1.4 cm simple lower pole cyst. No imaging follow-up is recommended. No hydronephrosis or renal calculi. The kidney measures 12.6 cm in maximum dimension. LEFT KIDNEY: There is a 3.2 x 3.0 x 3.6 cm simple mid renal cyst. No imaging follow-up is recommended. No hydronephrosis or renal calculi. The kidney measures 13.5 cm in maximum dimension. SPLEEN: Normal. The spleen measures 9.1 cm in maximum dimension. FREE FLUID: None. IMPRESSION: 1. There is dilatation of the common duct. The mid and distal common duct are obscured by bowel gas. CT scan of the abdomen and pelvis to evaluate for choledocholithiasis or MRCP could be performed for further evaluation. 2. Question of tiny gallbladder polyps. 3. The pancreas and mid abdominal aorta are obscured by bowel gas. Assessment & Plan Assessment & Plan (1) BPH (benign prostatic hyperplasia): Comment: On finasteride Code(s): N40.0 - Benign prostatic hyperplasia without lower urinary tract symptoms Category: Medical (2) Bladder wall thickening: Code(s): N32.89 - Other specified disorders of bladder Category: Medical Plan Continue the Proscar 5 mg. Follow-up in one year, patient to call prior for any bothersome symptoms. Orders: Orders AMB Urinalysis Automated Today Z13.9 - Encounter for screening, unspecified Medications: Refilled finasteride (Proscar) 5 mg PO DAILY 90 days 90 tabs 3RF C61 - Malignant neoplasm of prostate Patient Instructions: The patient had an opportunity to ask questions regarding treatment plan. The patient expressed understanding and agreement with the above treatment plan. The patient is aware they should contact our office by phone for worsening of their current condition or the appearance of new symptoms. Compliance is encouraged with any medications and followup testing that is ordered. It is a privilege to be allowed the opportunity to participate in the urologic care of your patient. If you have any questions or concerns regarding treatment for the above conditions please do not hesitate to contact me. The office telephone contact is [phone]. This note is constructed in part using voice recognition software. While every effort has been made to ensure accuracy cardiopulmonary technologist chief errors may have been included. Yours sincerely, Danielle Rose MD Coding Level of Care Code Est Pt Level 3 (44917) Complex EM visit Add On G2211 Diagnoses BPH (benign prostatic hyperplasia) N40.0 Bladder wall thickening N32.89
== END 2024-10-04 09:29 | disposition home or self-care (01) ==
LOC: HO.HUSH 08:31
PROVIDERS: PCP Internal Medicine; Visit Provider Urology
DX: N40.0 Benign prostatic hyperplasia without lower urinary tract symptoms (principal); N32.89 Other specified disorders of bladder; Z13.9 Encounter for screening, unspecified
CPT/HCPCS: 99213; G2211

== ENCOUNTER → 2024-10-04 08:31 | Outpatient (BNVA) | payer MEDICARE, SELFPAY | PROVIDERS: PCP Internal Medicine; Visit Provider Urology | DX: N40.1 Benign prostatic hyperplasia with lower urinary tract symptoms (principal); R35.1 Nocturia; C61 Malignant neoplasm of prostate; N32.89 Other specified disorders of bladder | CPT/HCPCS: 81003; 99212 ==

== ENCOUNTER 2024-11-24 09:48 | Outpatient (AMB) | payer MEDICARE, SELFPAY ==
--- NOTE | 2024-11-24 09:55 | A.OFFVIS_ITS ---
Intake Visit Reasons: Inj - Right Knee OA - Last Injected 12/07/23 Intake Note: Herb is an 88 year old male who presents today with Right Knee OA for a repeat injection, last injection was done 12/07/23. Allergies No Known Allergies Allergy (Verified 10/04/24 08:38) HPI HPI Inj - Right Knee OA - Last Injected 12/07/23: Details: Herb is an 88 year old male who presents today with Right Knee OA for a repeat injection, last injection was done 12/07/23. [facility] Medical History Thrombocytopenia Memory difficulties Chronic pain syndrome BPH (benign prostatic hyperplasia) Annual physical exam Osteoarthritis of right knee Anemia Ingrown toenail of both feet Aortic stenosis Right carpal tunnel syndrome Hyperlipidemia Surgical History Hx of appendectomy Hx of kyphoplasty S/P TAVR (transcatheter aortic valve replacement) (~03/2023) H/O colonoscopy Family History Father No problems noted. Mother No problems noted. Social History Housing: House Are you a primary youth care worker to a significant other at home: No Do you presently have visiting nurse or other home services: No Alcohol intake: never Patient Tobacco Use Status: Former Tobacco user Tobacco use type: Cigarette, Cigar and Pipe Years Smoked: 20 e-Cigarette/Vaping Use: Never Used Current occupational status: retired Cognitive needs: No Hearing needs: Yes Vision needs: Yes Physical Exam Extrem Other: Right knee with medial compartment tenderness to palpation and varus malalignment. Office Procedures Joint Inj/Aspir; Non-Pain Clin Joint Injection/Drain Details: Injected 1 mL of Decadron and 3 mL 1% lidocaine and 3 mL of 0.25% Marcaine. Site was prepped using aseptic technique. Patient tolerated the procedure well. Shoulders, Hips, Knees, Knee Large Joint Injection : Right Knee Coding Procedure code (CPT) selection complete Assessment & Plan Assessment & Plan (1) Osteoarthritis of right knee: Code(s): M17.11 - Unilateral primary osteoarthritis, right knee Category: Medical Plan: 89-year-old gentleman with severe osteoarthritis of the right knee. He wants injections again as they seem to be helpful. She is not a surgical candidate. I injected his right knee. We can repeat injections in 3 months if he would like. Coding Level of Care Code Est Pt Level 3 (16623) Diagnoses Osteoarthritis of right knee M17.11 CPT Codes Shoulders, Hips, Knees, - Knee Large Joint Injection : Right Knee ([id number])
== END 2024-11-24 10:23 | disposition home or self-care (01) ==
LOC: HO.HOS 09:49
PROVIDERS: PCP Internal Medicine; Visit Provider Orthopaedic Surgery
DX: M17.11 Unilateral primary osteoarthritis, right knee (principal)
CPT/HCPCS: 20610

== ENCOUNTER → 2024-11-24 09:48 | Outpatient (BNVA) | payer MEDICARE, SELFPAY | PROVIDERS: PCP Internal Medicine; Visit Provider Orthopaedic Surgery | DX: M17.11 Unilateral primary osteoarthritis, right knee (principal) | CPT/HCPCS: 20610; J0665; J1100; J2003 ==

== ENCOUNTER 2024-12-21 08:33 | Outpatient (REF) | payer MEDICARE, SELFPAY ==
[2024-12-21 10:09] LABS: MANUAL DIFF FLAG NO
[2024-12-21 10:19] LABS: Basophils Percent Auto 0.2 % (0-2); Eosinophils Absolute Auto 0.1 X10*3/uL (0.0-0.4); Eosinophils Percent Auto 2.2 % (0-4); Hematocrit 39.3 % (42.0-52.0); Hemoglobin 13.5 g/dl (14.0-18.0); Imm Gran Abs Auto 0.01 X10*3/uL (0.00-0.03); Imm Gran Pct Auto 0.2 % (0.0-0.4); Lymphocytes Absolute Auto 1.5 X10*3/uL (1.2-4.9); Lymphocytes Percent Auto 36.5 % (20-40); Mean Corpuscular HGB Conc 34.4 g/dl (31.0-36.0); Mean Corpuscular Hemoglobin 33.2 pg (27.0-33.0); Mean Corpuscular Volume 96.6 fL (80.0-98.0); Mean Platelet Volume 10.1 fL (9.4-12.4); Monocytes Absolute Auto 0.5 X10*3/uL (0.1-1.2); Monocytes Percent Auto 11.5 % (2-11); Neutrophils Percent Auto 49.4 % (45-73); Platelet Count 113 X10*3/uL (160-400); Red Blood Count 4.07 X10*6/uL (4.60-5.80); Red Cell Distribution Width 12.3 % (11.0-16.0); White Blood Count 4.1 X10*3/uL (4.8-10.8)
[2024-12-21 11:14] LABS: Alanine Aminotransferase 27 U/L (0-40); Albumin Level 3.7 g/dL (3.5-5.0); Anion Gap 12 (12-20); Aspartate Amino Transferase 33 U/L (5-37); Bilirubin Total 0.7 mg/dL (0.0-1.0); Blood Urea Nitrogen 22 mg/dL (9-16); Calcium 8.7 mg/dL (8.4-10.2); Carbon Dioxide 28 mmol/L (22-29); Chloride 110 mmol/L (96-108); Estimated Glomerular Filt Rate > 60; Glucose Fasting 104 mg/dL (60-99); Potassium 4.5 mmol/L (3.3-5.1); Sodium 145 mmol/L (135-145); Total Protein 6.2 g/dL (6.5-8.0)
[2024-12-21 13:02] LABS: Alkaline Phosphatase 58 U/L (39-117)
== END 2024-12-21 08:34 | disposition home or self-care (01) ==
LOC: HO.HMGCLDS 08:33
PROVIDERS: PCP Internal Medicine; Visit Provider Internal Medicine
DX: R73.9 Hyperglycemia, unspecified (principal); E78.5 Hyperlipidemia, unspecified; D64.9 Anemia, unspecified; I35.0 Nonrheumatic aortic (valve) stenosis
CPT/HCPCS: 36415; 80053; 85025

== ENCOUNTER 2024-12-30 10:02 | Outpatient (AMB) | payer MEDICARE, SELFPAY ==
--- NOTE | 2024-12-30 10:11 | A.OFFPC_ITS ---
Vital Signs 12/30/24 10:13 Height 5 ft 9 in Weight 222 lb 2 oz BMI 32.8 BP 138/70 Blood Pressure Location Lt brachial Position Sitting Pulse 82 Pulse Source Pulse Oximeter Temp 97.5 F Temp Source Core Pulse Oximetry (%) 97 Oxygen Delivery Method Room Air Intake Visit Reasons: 6 months follow up Intake Note: here for 6m follow up. Allergies No Known Allergies Allergy (Verified 12/30/24 10:13) Medication List - Last Reconciled 12/30/24 by Estee Butler MD aspirin 81 mg PO QAM atorvastatin 10 mg PO BEDTIME finasteride (Proscar) 5 mg PO DAILY 90 days ibuprofen 200 mg PO Q6H PRN multivitamin 1 tab PO QAM Tobacco use date assessed: 12/30/24 Fall risk assessment: 2 + Falls in past year Last assessed Fall Risk: 12/30/24 Dental Screening Dental Screen Date: 12/30/24 Did you have a dental visit in the last 12 months?: Yes Did you have a dental problem in the last 6 months where you did not have access to dental care?: No Was dental information given to patient?: Patient has dentist HPI 6 months follow up HPI Details Patient presents for the follow-up. Hypertension BPH stable on current medications, patient complains of recurrent right foot calluses on the side of his foot PFSH Medical History Thrombocytopenia Memory difficulties Chronic pain syndrome BPH (benign prostatic hyperplasia) Annual physical exam Osteoarthritis of right knee Anemia Ingrown toenail of both feet Aortic stenosis Right carpal tunnel syndrome Hyperlipidemia Surgical History Hx of appendectomy Hx of kyphoplasty S/P TAVR (transcatheter aortic valve replacement) (~03/2023) H/O colonoscopy Family History Father No problems noted. Mother No problems noted. Social History Housing: House Are you a primary companion caregiver to a significant other at home: No Do you presently have visiting nurse or other home services: No Alcohol intake: never Patient Tobacco Use Status: Former Tobacco user Tobacco use type: Cigarette, Cigar and Pipe Years Smoked: 20 e-Cigarette/Vaping Use: Never Used Current occupational status: retired Cognitive needs: No Hearing needs: Yes Vision needs: Yes Questionnaire PHQ-9 Over the last 2 weeks, how often have you been bothered by any of the following problems? 1. Little interest or pleasure in doing things: not at all 2. Feeling down, depressed, or hopeless: not at all 3. Trouble falling or staying asleep, or sleeping too much: several days 4. Feeling tired or having little energy: several days 5. Poor appetite or overeating: not at all 6. Feeling bad about yourself - or that you are a failure or have let yourself or your family down: not at all 7. Trouble concentrating on things, such as reading the newspaper or watching television: not at all 8. Moving or speaking so slowly that other people could have noticed. Or the opposite - being so fidgety or restless that you have been moving around a lot more than usual: not at all 9. Thoughts that you would be better off or of hurting yourself in some way: several days Total score: 3 Depression Screening Interpretation: Negative Depression Screening Done: Yes 87345 - PHQ-9 Billing: Yes Source: Developed by Drs. Shashank Kimbrough, Georgina Turner, Sarthak Askew and colleagues, with an educational luther from [employer]. Thrive Questionnaire Date Thrive assessed: 12/30/24 I am a: Parent/Caregiver What is your living situation today?: I have a steady place to live Within the past 12 months, did the food you bought not last and you didn't have the money to get more?: Never true Within the past 12 months, did you worry whether your food would run out before you got money to buy more?: Never true Do you have trouble paying for medicines?: No Do you have trouble getting transportation to medical appointments?: No Do you have trouble paying your heating and electricity bill?: No Do you have trouble taking care of your child, family member or friend?: No Do you have trouble with day-to-day activities such as bathing, preparing meals, shopping, managing finances, etc.?: No Are you currently unemployed and looking for a job?: No Are you interested in more education?: No Please select the resources that you would like help with: None Currently or been in a relationship where the following occur: No concerns reported THRIVE Score: 0 AUDIT C Alcohol Use Questionnaire (AUDIT-C) 1. How often do you have a drink containing alcohol?: 2-4 times a month 2. How many drinks containing alcohol do you have on a typical day when you are drinking?: 1 or 2 3. How often do you have six or more drinks on one occasion?: Never Total Score: 2 EMILIE-7 AMB Questionnaire EMILIE-7 Date EMILIE - 7 assessed: 12/30/24 Feeling nervous, anxious, or on edge: 1 = Several days Not being able to stop or control worryin = Several days Worrying too much about different things: 1 = Several days Trouble relaxin = Several days Being so restless that it is hard to sit still: 1 = Several days Becoming easily annoyed or irritable: 1 = Several days Feeling afraid as if something awful might happen: 1 = Several days Total EMILIE-7 score (0-4 normal; 5-9 mild; 10-14 moderate; 15-21 severe): 7 Source: Developed by Drs. Shashank Kimbrough, Georgina Turner, Sarthak Askew and colleagues, with an educational luther from [employer]. EMILIE-7 Assessment Billing EMILIE-7 Assessment Tool: EMILIE-7 Assessment 30560 Review of Systems Const All systems reviewed & are unremarkable except as noted in HPI and below ENT Reports no additional complaints GI Reports no additional complaints Reports no additional complaints Musc Reports no additional complaints Physical exam (Primary Care) Vital Signs: Last Vital Signs Temp 97.5 F 12/30/24 10:13 Pulse 82 12/30/24 10:13 BP 138/70 12/30/24 10:13 Pulse Ox 97 12/30/24 10:13 Oxygen Delivery Method Room Air 12/30/24 10:13 BMI result Body Mass Index 32.8 Tobacco/Smoking Status: Tobacco use Status Tobacco use date assessed 12/30/24 12/30/24 10:17 Patient Tobacco Use Status Former Tobacco user 12/30/24 10:11 Tobacco use type Cigarette,Pipe,Cigar 12/30/24 10:11 e-Cigarette/Vaping Use Never Used 12/30/24 10:11 PHQ-9: PHQ-9 Score PHQ-9: Total score 3 12/30/24 10:26 Depression Screening Interpretation: Negative Thrive Assessment: Date of Thrive Assessment Date Thrive assessed 12/30/24 12/30/24 10:11 Currently or been in a relationship where the following occur: No concerns reported Const General: no acute distress HENMT Face and sinus: Yes normal facial exam Neck Neck: Yes supple Resp Effort & Inspection: normal respiratory effort Auscultation: clear to auscultation bilaterally Cardio Rhythm: regular rhythm Heart sounds: S1 normal heart sound present and S2 normal heart sound present GI Inspection: Yes normal to inspection Palpation (GI): Soft to palpation Auscultation: normal bowel sounds Immunizations pneumoc 20-jose de jesus conj-dip cr(PF) 0.5 mL IM syringe Performing Provider: Estee Butler MD [place] [facility] [place] [facility] Administered by: ALLISON Zambrano on 12/30/24 10:50 Dose Route Admin Location Dispensed Lot Number Expiration Date [facility] Card Lacer Jacquard 0.5 mL IM Left Deltoid 0.5 mL [id number] 09/16/25 [employer] VIS Given Date VIS Provided VIS Publication Date 12/30/24 Single Vaccine 21 Eligibility Eligibility Date Funding Source Not [facility] Eligible 12/30/24 Private Coding Level of Care Code Est Pt Level 4 (98457) Diagnoses Hyperglycemia R73.9 Annual physical exam Z00.00 Callus L84 BPH (benign prostatic hyperplasia) N40.0 Additional Codes EMILIE-7 Assessment Billing - EMILIE-7 Assessment Tool: EMILIE-7 Assessment 91295 ([id number]) PHQ-9 - 20249 - PHQ-9 Billing: Yes ([id number]) Assessment & Plan Assessment & Plan (1) Hyperglycemia: Code(s): R73.9 - Hyperglycemia, unspecified Category: Medical Plan: ADA diet discussed with the patient check A1c (2) Annual physical exam: Code(s): Z00.00 - Encounter for general adult medical examination without abnormal findings Category: Medical Plan: Well-balanced diet increase physical activity discussed with the pt (3) Callus: Comment: R foot Code(s): L84 - Corns and callosities Category: Medical Plan: Referred to Podiatry (4) BPH (benign prostatic hyperplasia): Comment: On finasteride Code(s): N40.0 - Benign prostatic hyperplasia without lower urinary tract symptoms Category: Medical Plan: Continue finasteride Orders: Orders Complete Blood Count Auto Diff 6 Months R73.9 - Hyperglycemia, unspecified, Z00.00 - Encounter for general adult medical examination without abnormal findings Lipid Panel 6 Months R73.9 - Hyperglycemia, unspecified, Z00.00 - Encounter for general adult medical examination without abnormal findings Pneumococcal 20 Immunization Today Z23 - Encounter for immunization Comprehensive [place]. Panel Fast 6 Months R73.9 - Hyperglycemia, unspecified, Z00.00 - Encounter for general adult medical examination without abnormal findings Vitamin D 25-OH Total 6 Months R73.9 - Hyperglycemia, unspecified, Z00.00 - Encounter for general adult medical examination without abnormal findings Referrals Podiatry Referral L84 - Corns and callosities
[2024-12-30 10:13] VITALS: BP 138/70; PULSE 82; TEMP 36.4; O2SAT 97; BMI 32.8
== END 2024-12-30 10:45 | disposition home or self-care (01) ==
LOC: HO.HMCC 10:02
PROVIDERS: PCP Internal Medicine; Visit Provider Internal Medicine
DX: R73.9 Hyperglycemia, unspecified (principal); Z00.00 Encounter for general adult medical examination without abnormal findings; L84 Corns and callosities; N40.0 Benign prostatic hyperplasia without lower urinary tract symptoms; Z23 Encounter for immunization

== ENCOUNTER → 2024-12-30 10:02 | Outpatient (BNVA) | payer MEDICARE, SELFPAY | PROVIDERS: PCP Internal Medicine; Visit Provider Internal Medicine | DX: Z23 Encounter for immunization (principal); R73.9 Hyperglycemia, unspecified; L84 Corns and callosities; N40.0 Benign prostatic hyperplasia without lower urinary tract symptoms | CPT/HCPCS: 90471; 90677; 96127; 99212 ==

== ENCOUNTER 2025-06-30 07:40 | Outpatient (REF) | payer MEDICARE, SELFPAY ==
[2025-06-30 10:11] LABS: MANUAL DIFF FLAG NO
[2025-06-30 10:20] LABS: Hematocrit 41.8 % (42.0-52.0); Hemoglobin 13.5 g/dl (14.0-18.0); Imm Gran Abs Auto 0.02 X10*3/uL (0.00-0.03); Imm Gran Pct Auto 0.4 % (0.0-0.4); Lymphocytes Absolute Auto 1.9 X10*3/uL (1.2-4.9); Mean Corpuscular HGB Conc 32.3 g/dl (31.0-36.0); Mean Corpuscular Hemoglobin 32.0 pg (27.0-33.0); Mean Corpuscular Volume 99.1 fL (80.0-98.0); NRBC Abs Auto 0.000 X10*3/uL (0.0-0.012); NRBC Pct Auto 0.0 /100WBC (0.0-0.2); Platelet Count 129 X10*3/uL (160-400); Red Blood Count 4.22 X10*6/uL (4.60-5.80); White Blood Count 4.8 X10*3/uL (4.8-10.8)
[2025-06-30 10:58] LABS: Alanine Aminotransferase 20 U/L (0-40); Albumin Level 4.0 g/dL (3.5-5.0); Alkaline Phosphatase 119 U/L (39-117); Anion Gap 7 (12-20); Aspartate Amino Transferase 27 U/L (5-37); Blood Urea Nitrogen 23 mg/dL (9-16); Calcium 8.9 mg/dL (8.4-10.2); Carbon Dioxide 31 mmol/L (22-29); Chloride 108 mmol/L (96-108); Cholesterol 121 mg/dL (<200); Estimated Glomerular Filt Rate > 60; HDL Cholesterol 45 mg/dL (>40); Potassium 5.1 mmol/L (3.3-5.1); Sodium 141 mmol/L (135-145); Total Protein 6.5 g/dL (6.5-8.0); Triglycerides 61 mg/dL (<150)
== END 2025-06-30 07:41 | disposition home or self-care (01) ==
LOC: HO.HMGCLDS 07:40
PROVIDERS: PCP Internal Medicine; Visit Provider Internal Medicine
DX: Z00.00 Encounter for general adult medical examination without abnormal findings (principal); R73.9 Hyperglycemia, unspecified; Z13.21 Encounter for screening for nutritional disorder; Z13.6 Encounter for screening for cardiovascular disorders
CPT/HCPCS: 36415; 80053; 80061; 82306; 85025

== ENCOUNTER 2025-07-10 09:00 | Outpatient (AMB) | payer MEDICARE, SELFPAY ==
--- OUTSIDE RECORDS SUMMARY | 2025-05-10 08:00 | XMS_ITS ---
Author Organization [facility] Address [address] [place] [id number] Care Team Providers Care Checker Name Role Phone Estee Butler MD Primary Care Provider Elizabeth Rollins Unavailable [phone] Encounters Encounter Location Date Provider Diagnosis [address] [phone] 05/10/2025 Elizabeth Goins Plan Of Treatment Next Appt Details Provider Name:Elizabeth herman, 10/02/2025 10:15:00 AM, [address] [place] [address], [phone], Progress Notes * JEZHerb TRAOREDOB: 7 (89 yo M)Acc No.[id number]:05/10/2025 Progress Note Patient: Herb NEIL Provider: Rajat Goins DPM :1935 A ge:89 Y S ex:Male Date:05/10/2025 Address:[address] [place] [address] Pcp:Estee Butler MD Subjective: * Chief Complaints: * * Medical History: Objective: * Vitals: Assessment: Plan: * Treatment: * Images: * The named appointment provid er may or may not be the originator of this progress note, and it is not deemed complete until electronically signed by the appointment provider. Sign off status: Pending * Provider: Rajat Goins DPM Date: 1 Generated for Frank issa/Verenice/Jennifer on: 09/10/2024 09:50 AM EST
--- NOTE | 2025-07-10 09:06 | MHC.PC.OV ---
Vital Signs 07/10/25 09:07 Height 5 ft 9 in Weight 224 lb BMI 33.1 BP 118/64 Blood Pressure Location Rt brachial Position Sitting Respiration 17 Pulse 84 Pulse Source Pulse Oximeter Temp 98.2 F Temp Source Oral Pulse Oximetry (%) 97 Oxygen Delivery Method Room Air Intake Visit Reasons: 6m follow up Intake Note: Pt is here today for 6 months follow up visit. Allergies No Known Allergies Allergy (Verified 07/10/25 09:16) Medication List - Last Reconciled 07/10/25 by Estee Butler MD aspirin 81 mg PO QAM atorvastatin 10 mg PO BEDTIME finasteride (Proscar) 5 mg PO DAILY 90 days ibuprofen 200 mg PO Q6H PRN multivitamin 1 tab PO QAM Tobacco use date assessed: 12/30/24 Fall risk assessment: 2 + Falls in past year Last assessed Fall Risk: 07/10/25 Dental Screening Dental Screen Date: 12/30/24 HPI 6m follow up HPI Details Pt presents for f/u hyperlipid and BPH, stable on meds. Pt complains of chronic right knee pain and stiffness due to advanced osteoarthritis has been getting cortisone injection by [facility] ortho with some relief. Patient is not interested in knee replacement surgery [facility] Medical History (Updated 07/10/25 @ 10:02 by Estee Butler MD) Osteoarthritis of right knee Compression fracture of L2 lumbar vertebra Thrombocytopenia Memory difficulties Chronic pain syndrome BPH (benign prostatic hyperplasia) Annual physical exam Osteoarthritis of right knee Anemia Ingrown toenail of both feet Aortic stenosis Right carpal tunnel syndrome Hyperlipidemia Surgical History Hx of appendectomy Hx of kyphoplasty S/P TAVR (transcatheter aortic valve replacement) (~03/2023) H/O colonoscopy Family History Father No problems noted. Mother No problems noted. Social History Housing: House Are you a primary healthcare network pricing consultant to a significant other at home: No Do you presently have visiting nurse or other home services: No Alcohol intake: never Patient Tobacco Use Status: Former Tobacco user Tobacco use type: Cigarette, Cigar and Pipe Years Smoked: 20 e-Cigarette/Vaping Use: Never Used service: No Current occupational status: retired Cognitive needs: No Hearing needs: Yes Vision needs: Yes Questionnaire Thrive Questionnaire Date Thrive assessed: 12/30/24 What is your living situation today?: I have a steady place to live Within the past 12 months, did the food you bought not last and you didn't have the money to get more?: Never true Within the past 12 months, did you worry whether your food would run out before you got money to buy more?: Never true Do you have trouble paying for medicines?: No Do you have trouble getting transportation to medical appointments?: No Do you have trouble paying your heating and electricity bill?: No Do you have trouble taking care of your child, family member or friend?: No Do you have trouble with day-to-day activities such as bathing, preparing meals, shopping, managing finances, etc.?: No Are you currently unemployed and looking for a job?: No Are you interested in more education?: No Currently or been in a relationship where the following occur: No concerns reported THRIVE Score: 0 EMILIE-7 AMB Questionnaire EMILIE-7 Date EMILIE - 7 assessed: 12/30/24 Source: Developed by Drs. Shashank Kimbrough, Georgina Turner, Sarthak Askew and colleagues, with an educational luther from [employer]. Review of Systems Const All systems reviewed & are unremarkable except as noted in HPI and below Eyes Reports no additional complaints ENT Reports no additional complaints Card Reports no additional complaints Resp Reports no additional complaints GI Reports no additional complaints Reports no additional complaints Physical exam (Primary Care) Vital Signs: Last Vital Signs Temp 98.2 F 07/10/25 09:07 Pulse 84 07/10/25 09:07 Resp 17 07/10/25 09:07 BP 118/64 07/10/25 09:07 Pulse Ox 97 07/10/25 09:07 Oxygen Delivery Method Room Air 07/10/25 09:07 BMI result Body Mass Index 33.1 Tobacco/Smoking Status: Tobacco use Status Tobacco use date assessed 12/30/24 07/10/25 09:07 Patient Tobacco Use Status Former Tobacco user 07/10/25 09:07 Tobacco use type Cigarette,Pipe,Cigar 07/10/25 09:07 e-Cigarette/Vaping Use Never Used 07/10/25 09:07 Thrive Assessment: Date of Thrive Assessment Date Thrive assessed 12/30/24 07/10/25 09:07 Currently or been in a relationship where the following occur: No concerns reported Const General: no acute distress HENMT Head: Yes normal to inspection Face and sinus: Yes normal facial exam Eyes General: appearance normal, both eyes and all related structures Resp Effort & Inspection: normal respiratory effort Auscultation: clear to auscultation bilaterally Cardio Rhythm: regular rhythm Heart sounds: S1 normal heart sound present and S2 normal heart sound present GI Inspection: Yes normal to inspection Palpation (GI): Soft to palpation Percussion: Yes normal to percussion Coding Level of Care Code Est Pt Level 4 (33824) Diagnoses Aortic stenosis I35.0 Hyperlipidemia E78.5 BPH (benign prostatic hyperplasia) N40.0 Assessment & Plan Assessment & Plan (1) Aortic stenosis: Comment: Severe peak gradient 64 mmHg - s/p TAVR 04/11 - follows w/[facility] Code(s): I35.0 - Nonrheumatic aortic (valve) stenosis Category: Medical Plan: Status post TAVR follow-up with [facility] (2) Hyperlipidemia: Code(s): E78.5 - Hyperlipidemia, unspecified Category: Medical Plan: Continue statin (3) BPH (benign prostatic hyperplasia): Comment: On finasteride Code(s): N40.0 - Benign prostatic hyperplasia without lower urinary tract symptoms Category: Medical Plan: Continue finasteride follow-up with urology Orders: Orders Lipid Panel 6 Months Z00.00 - Encounter for general adult medical examination without abnormal findings Comprehensive [place]. Panel Fast 6 Months Z00.00 - Encounter for general adult medical examination without abnormal findings Complete Blood Count Auto Diff 6 Months Z00.00 - Encounter for general adult medical examination without abnormal findings
[2025-07-10 09:07] VITALS: BP 118/64; PULSE 84; RESP 17; TEMP 36.8; O2SAT 97; BMI 33.1
--- OUTSIDE RECORDS SUMMARY | 2025-07-10 09:50 | XMS_ITS | Patient Health Record ---
Author Organization [facility] karla Fullerton Address [address] [place] [address] Care Team Providers Care Plastic Manager Name Role Phone Estee Butler MD Primary Care Provider UnavailElizabeth Rutherford Unavailable [phone] Allergies No Known Allergies Reason For Referral No Information Medications Medication SIG (Take, Route, Frequency, Duration) Notes Start Date End Date Status Aspirin 81 MG 1 tablet Orally Once a day Active oxyCODONE HCl 5 MG TAKE 1 TABLET BY JENNIFER TH EVERY 6 HOURS NEEDED FOR PAIN Oral; Duration: 1 Days Active Atorvastatin Calcium 10 MG 1 tablet Oral ly Once a day Active Finasteride 5 MG 1 tablet Orally Once a day Active Immunizations Vaccine Route Administration Date Status Comme nts Influenza Unknown 03/20/2024 Administered Influenza Unknown 03/20/2025 Administered Social History Tobacco Use: Social History Observation Description Date Details (start date - stop date) Never Smoker NA - NA Tobacco use other than smoking: Question Answer Notes Are you an other tobacco user? No Tobacco Control (Standard) Question Answer Notes Tobacco use: Nonsmoker Additional Findings: Tobacco non-user Current no nsmoker AUDIT-C (Standard) Question Answer Notes Did you have a drink contain ing alcohol in the past year? Yes How often did you have a dri nk containing alcohol in the past year? Monthly or less (1 point) How many drinks did you have on a typical day when you were drinking in the past year? 1 or 2 drinks (0 point) How often did you have six o r more drinks on one occasion in the past year? Declined to specify (0 point) Points 1 Interpretation Negative Problems Problem Type SNOMED Code ICD Code Onset Dates Problem Status W/U Status Risk Notes Problem Acquired hammer toe of right foot (2413400913385314) Other hammer toe(s) (acquired), right foot (M20.41) Active confirmed Problem Bilateral atherosclerosis of arteries of lower limbs (disorder) (21534423952152057 ) Atherosclerosis of kas[place] artery of both lower extremities, with unspecified presence of clinical manifestation (I70.203) Active confirmed Q7(A), Q8(2B), Q9(1B,2 C) Problem Localized, primary osteoarthritis of the ankle and/or foot (725131908) Arthritis of joint of lesser toe, right (M19.071) Active confirmed Vital Signs Blood pressure diastolic 81 mm Hg 06/29/2025 Height 5ft7in in 06/29/2025 Blood pressure systolic 120 mm Hg 06/29/2025 Weight 209 lbs 06/29/2025 BMI 32.73 kg/m2 06/29/2025 Procedures Procedure Date Ordered Date Performed Result Body Sit e 07272-UCCSAHO NAIL, 6 OR MORE 04/05/2025 N/A 65379-[id number] NAIL, 6 OR MORE 06/29/2025 N/A 85507-OARH SKIN LESIONS, 2 TO 4 06/29/2025 N/A Encounters Encounter [facility] [address] [facility] Elizabeth Goins Pain in right toe(s) M79.674 ; Other hammer toe(s) (acquired), right foot M20.41 ; Arthritis of joint of lesser toe, right M19.071 and Atherosclerosis of kas[place] artery of both lower extremities, with unspecified presence of clinical manifestation I70.203 [facility] [address] 06/29/2025 Elizabeth Goins Atherosclerosis of kas[place] artery of both lower extremities, with unspecified presence of clinical manifestation I70.203 ; Tinea unguium B35.1 ; Pain in right toe(s) M79.674 and Pain in left toe(s) M79.[address] [address] 05/09/2025 Elizabeth Goins Assessments Encounter Date Diagnosis (ICD Code) Assessment Notes Treatment Notes Treatment Clinical Notes Section Notes 04/05/2025 Pain in right toe(s) (ICD-10 - M79.674) 04/05/2025 Other hammer toe(s) (acquired), right foot (ICD-10 - M20.41) 06/29/2025 Atherosclerosis of kas[place] artery of both lower extremities, with unspecified presence of clinical manifestation (ICD-10 - I70.203) Q7(A), Q8(2B), Q9(1B,2C) 04/05/2025 Arthritis of joint of lesser toe, right (ICD-10 - M19.071) 06/29/2025 Tinea unguium (ICD-10 - B35.1) 04/05/2025 Atherosclerosis of kas[place] artery of both lower extremities, with unspecified presence of clinical manifestation (ICD-10 - I70.203) Q7(A), Q8(2B), Q9(1B,2C) 06/29/2025 Pain in right toe(s) (ICD-10 - M79.674) 06/29/2025 Pain in left toe(s) (ICD-10 - M79.675) Plan Of Treatment Pending Test Test Name Order Date X ray : Foot, right 3V 04/05/2025 78045-[id number] NAIL, 6 OR MORE 04/05/2025 [id number] NAIL, 6 OR MORE 06/29/2025 86047-[id number] SKIN LESIONS, 2 TO 4 06/29/20 25 Next Appt Details Provider Name:Elizabeth herman, 10/02/2025 10:15:00 AM, [address] [place], [address], Insurance Providers Payer Name Payer Address Payer Phone Subscriber Number Group Number Insured Name Patient Relationship to Insured Coverage Start Date Coverage End Date Medicare National [employer] [address] [place] [address] [id number] Herb Quintero Self - patient is the insured 2 [employer] [address] [place] [address] [id number] Herb Quintero Self - patient is the insured Medical (General) History Medical History History ICD Code Back,Hip,and Knee pain Surgical History Surgery Date(Month/Year) aortic valve 03/2023 Hospitalization History Reason Date(Month/Year) fell, broke ribs 05/13 stiches in finger 02/10
--- OUTSIDE RECORDS SUMMARY | 2025-07-10 09:50 | XMS_ITS | Encounter Summary ---
Author Organization [facility] Address [address] [place] [address] [place] [address] Phone Care Team Providers Care Manager Appointment Name Role Phone Estee Butler MD Primary Care Provider [phone] Encounter Details Date Type Department Care Team ([facility] st Contact Info) Description 05/13/2025 Procedure Pass [facility], Ct Scan - [address] [address] Social History Tobacco Use Types Packs/Day Years Used Date Smoking Tobacco: Never Smokeless Tobacco: Never Alcohol Use Standard Drinks/Week Comments Yes 0 (1 standard drink = 0.6 oz pur e alcohol) rare Home Health Assessment: Transportation Answer Date Recorded Lack of Transportation (Medical) No 05/15/2025 Lack of Transportation (Non-Medical) No 05/15/2025 Patient Unable or Declines to Respond No 05/15/2025 Education Answer Date Recorded Are you interested in more education? Not on harshil e 11/15/2022 Are you concerned about learning? Not on file 11/15/2022 No 11/15/2022 No 11/15/2022 Food Answer Date Recorded Within the past 6 months we worried whether our food would run out before we got money to buy more. Never True 05/09/2025 Within the past 6 months the food we bought just didn't last and we didn't have enough money to get more. Never True Residential Stability Answer Date Recor ded What is your housing situation today? I have maryam sing 05/09/2025 How many times have you move d in the past 12 months? Zero (I did not move) 05/09/2025 Paying for Meds Answer Date Recorded Do you have trouble paying for medicines? No 05/09/2025 Paying Utility Bills Answer Date Record ed Do you have trouble paying your heating or elect ricity bill? No 05/09/2025 Transportation Answer Date Recorded Has the lack of transportati on kept you from medical appointments or from getting medications? No 05/09/2025 Digital Access Answer Date Recorded No 05/09/2025 Yes 05/09/2025 Do you have reliable internet access at home? Ye s 05/09/2025 Do you have a device (e.g., phone, tablet, computer) with a working camera? Yes 05/09/2025 Intimate Partner Violence Answer Date R ecorded Are you denied basic needs s uch as food, clothing, or medical care? No 05/12/2025 In the past 12 months have y ou been in a relationship with a person who hurts, threatens, or tries to control you? No 05/12/2025 Are you denied basic needs s uch as food, clothing, or medical care? No 05/12/2025 In the past 12 months have y ou been in a relationship with a person who hurts, threatens, or tries to control you? No 05/12/2025 Sex and Gender Information Value Date Recorded Sex Assigned at Not on file Legal Sex Male 10:49 AM EST Gender Identity Not on file Sexual Orientation Not on file documented as of this encounter Plan of Treatment Not on file documented as of this encounter Visit Diagnoses Not on filedocumented in this encounter Care Teams Manager Appointment Relationship Specialty Start Date End Date Estee Butler MD [address] [place] [address] PCP - General Internal Medicine 07/09/21 documented as of this encounter Additional Source Comments The information contained in this document represents components of the legal health record. It is not the complete legal health record.[facility]
--- OUTSIDE RECORDS SUMMARY | 2025-07-10 09:50 | XMS_ITS | Encounter Summary ---
Author Organization [facility] Address [address] [place] [address] [place] [address] Phone Care Team Providers Care Dice Maker Name Role Phone Estee Butler MD Primary Care Provider [phone] Encounter Details Date Type Department Care Team ([facility] st Contact Info) Description 05/12/2025 Procedure Pass [facility], Ct Scan - [address] [address] Social History Tobacco Use Types Packs/Day Years [...] on filedocumented in this encounter Care Teams Dice Maker Relationship Specialty Start Date End Date Estee Butler MD [address] [place] [address] PCP - General Internal Medicine 07/09/21 documented as of this encounter Additional Source Comments The information contained in this document represents components of the legal health record. It is not the complete legal health record.[facility]
--- OUTSIDE RECORDS SUMMARY | 2025-07-10 09:50 | XMS_ITS | Encounter Summary ---
Author Organization [facility] Address [address] [address] [place] [address] Phone Care Team Providers Care Head Of Maintenance Name Role Phone Estee Butler MD Primary Care Provider [phone] Encounter Details Date Type Department Care Team ([facility] st Contact Info) Description 05/09/2025 Procedure Pass [facility], Ct Scan - [address] [address] Social History Tobacco Use Types Packs/Day Years Used Date Smoking Tobacco: Never Smokeless Tobacco: Never Alcohol Use Standard Drinks/Week Comments Yes 0 (1 standard drink = 0.6 oz pur e alcohol) rare Education Answer Date Recorded Are you interested [...] on filedocumented in this encounter Care Teams Head Of Maintenance Relationship Specialty Start Date End Date Estee Butler MD [facility] [place] [address] PCP - General Internal Medicine 07/09/21 documented as of this encounter Additional Source Comments The information contained in this document represents components of the legal health record. It is not the complete legal health record.[facility]
--- OUTSIDE RECORDS SUMMARY | 2025-07-10 09:50 | XMS_ITS | Encounter Summary ---
Author Organization [facility] Address [address] [facility] [address] [facility] [address] [place] [address] Phone Care Team Providers Care Corporate Librarian Name Role Phone Estee Butler MD Primary Care Provider [phone] Encounter Details Date Type Department Care Team ([facility] st Contact Info) Description 05/09/2025 Procedure Pass [facility], Ct Scan - [address] [address] Social History Tobacco Use Types Packs/Day Years [...] on filedocumented in this encounter Care Teams Corporate Librarian Relationship Specialty Start Date End Date Estee Butler MD [facility] [place] [address] PCP - General Internal Medicine 07/09/21 documented as of this encounter Additional Source Comments The information contained in this document represents components of the legal health record. It is not the complete legal health record.[facility]
--- OUTSIDE RECORDS SUMMARY | 2025-07-10 09:51 | XMS_ITS | Clinical Summary ---
Author Organization [facility] Address [address] [place] [id number] Phone Care Team Providers Care Termination Clerk Name Role Phone Estee Butler MD Primary Care Provider [phone] Allergies No known active allergies Medications aspirin 81 MG EC tablet Take 81 mg by mouth daily. Active atorvastatin (LIPITOR) 10 MG tablet Take 10 mg by mouth daily. 06/01/2021 Active finasteride (PROSCAR) 5 mg tablet Take 1 tablet by mouth every morning. 10/11/2024 Active oxyCODONE 5 MG immediate release tablet Take 1 tablet (5 mg total) by mouth every 6 (six) hours as needed for pain (specific location in comments). Partial fill ok 15 tablet 05/13/2025 Active Active Problems Problem Noted Date Diagnosed Date Class 1 obesity 04/08/2025 Primary localized osteoarthrosis of ankle and fo ot 04/08/2025 Atherosclerosis of artery of both lower extremit ies 04/08/2025 Ingrown nail 07/10/2021 Encounters Date Type Department Care Team Description 05/30/2025 1:30 PM EST Home [facility] Visit [facility] [address] [place] [address] Meli Bella RN SN OASIS DISCHARGE VISIT 05/26/2025 Episode Documentatio n Update [facility] [address] [place] [phone] Maryan Ying 05/25/2025 12:00 PM EST Home Care Visit [facility] [address] [place] [address] Meli Bella RN SN HOME VISIT 05/25/2025 Episode Documentatio n Update [facility] [address] [place] [address] Maryan Ying 05/24/2025 10:45 AM EST Home Care Visit [facility] [address] [place] [address] Chantel Alvarado, OT OT DISCIPLINE DISCHARGE VISIT 05/18/2025 12:30 PM EDT Home Care Visit [facility] [address] [place] [address] Meli Bella RN SN HOME VISIT 05/18/2025 [facility] [address] [place] [address] Kerri Stern, PT TELEPHONE ENCOUNTER 05/17/2025 12:15 PM EDT Home Care Visit [facility] [address] [place] [address] Chantel Alvarado, OT OT EVALUATION 05/16/2025 Plan of Care [facility] [address] [place] [address] 05/15/2025 11:00 AM EDT [facility] [address] [place] [address] Meli Bella RN SN OASIS START OF CARE (SOC) 05/13/2025 [facility] [address] [place] [address] Homehealth, Interface ProviderMD 05/13/2025 Procedure Pass [facility], Ct Scan - [address] [address] 05/12/2025 11:11 PM EDT - 05/13/2025 12:30 PM EDT Emergency [facility] [address] [place] [address] Rolando Hein, Paul Waldrop MD Discharge Disposition: Retirement Facility 05/12/2025 Procedure Pass [address] [address] 05/10/2025 Orders Only [facility] [address] [place] [phone] Homehealth, Nalini Purvis MD 05/09/2025 9:24 AM EDT - 05/09/2025 2:23 PM EDT Emergency [facility] [address] [place] [id number] Discharge Disposition: Short Term Hospital 05/09/[address] [address] 05/09/[address] [address] 05/09/[address] [address] 05/09/[address] [address] from Last 3 Months Immunizations Immunization Administration Dates Next Due Tdap 01/27/2025 Social History Tobacco Use Types Packs/Day Years Used Date Smoking Tobacco: Never Smokeless Tobacco: Never Tobacco Cessation:Counseling Given: Not Answered Alcohol Use Standard Drinks/Week Comments Yes 0 (1 standard drink = 0.6 oz pur e alcohol) rare Home Health Assessment: Transportation Answer Date Recorded Lack of Transportation (Medical) No 05/30/2025 Lack of Transportation (Non-Medical) No 05/30/2025 Patient Unable or Declines to Respond No 05/30/2025 Education Answer Date Recorded Are you interested [...] your housing situation today? I have maryam chirinos 05/09/2025 How many times have you move [...] on file Sexual Orientation Not on file Last Filed Vital Signs Vital Sign Reading Time Taken Comments Blood Pressure 128/76 05/30/2025 1:37 PM EST Pulse 68 05/30/2025 1:37 PM EST Temperature 36.7 C (98 F) 05/30/2025 1:37 PM EST Respiratory Rate 18 05/30/2025 1:37 PM EST Oxygen Saturation 98% 05/30/2025 1:37 PM EST Inhaled Oxygen Concentration - - Weight 95.3 kg (210 lb) 05/09/2025 9:14 AM EDT Height 172.7 cm (5' 8 ) 05/09/2025 9:14 AM EDT Body Mass Index 31.93 05/09/2025 9:14 AM EDT Plan of Treatment Health Maintenance Due Date Last Done Comments DEPRESSION SCREENING 1947 ZOSTER VACCINES (1 of 2) 1986 RSV VACCINE (1 - 1-dose 75+ series) 10/30/2011 INFLUENZA VACCINE (#1) 2025 , 07/16/2023, 06/16/2022, Additional history exists COVID-19 VACCINE ( season) 2025 05/06/2021, 09/11/2020, 08/17/2020 Adult Td,Tdap Booster 01/27/2035 01/27/2025 PNEUMOCOCCAL VACCINES (50+ years) Completed 12/30/2024 HEPATITIS A VACCINES Aged Out No long er eligible based on patient's age to complete this topic HIB VACCINES Aged Out No longer eligi ble based on patient's age to complete this topic MENINGOCOCCAL VACCINES (ACWY) Aged Out No longer eligible based on patient's age to complete this topic MENINGOCOCCAL VACCINES (B) Aged Out N o longer eligible based on patient's age to complete this topic Medical Devices Not on file Procedures Procedure Name Priority Date/Time Associated Diagnosis Comments CT CHEST PULMONARY ANGIOGRAM (ACUTE) Routine 05/13/2025 7:10 AM EDT D-DIMER STAT 05/13/2025 4:58 AM EDT LAB ADD ON STAT 05/13/2025 3:56 AM EDT NT-PROBNP STAT 05/13/2025 3:56 AM EDT TROPONIN STAT 05/13/2025 3:56 AM EDT XR CHEST PORTABLE Routine 05/13/2025 3:4 2 AM EDT ECG 12-LEAD STAT 05/13/2025 3:[address] ABDOMEN/PELVIS WITH CONTRAST Routine 05/13/2025 1:53 AM EDT TROPONIN Routine 05/12/2025 11:51 PM EDT LIPASE STAT 05/12/2025 11:51 PM EDT LFTS (HEPATIC PANEL) STAT 05/12/2025 11:51 PM EDT BASIC METABOLIC PANEL (BMP) STAT 05/12/2025 11:51 PM EDT CBC AND DIFFERENTIAL STAT 05/12/2025 11:[address] ED TRAUMA ABDOMEN/PELVIS WITH L-SPINE REFORMATS WITHOUT CONTRAST Routine 05/09/2025 9:[address] ED TRAUMA CHEST WITH T-SPINE REFORMATS WITHOUT CONTRAST Routine 05/09/2025 9:[address] CERVICAL SPINE WITHOUT CONTRAST Routine 05/09/2025 9:[address] HEAD WITHOUT CONTRAST Routine 05/09/2025 9:49 AM EDT from Last 3 Months Results * CT CHEST PULMONARY ANGIOGRAM (ACUTE) (05/13/2025 7:10 AM EDT) Anatomical Region Laterality Modality Chest, Thoracic Vasculature Comp uted Tomography 05/13/2025 9:07 AM EDT Impressions 05/13/2025 9:16 AM EDT 1. No pulmonary embolus. 2. Bilateral pleural effusions with adjacent atelectasis. 3. Acute T11 compression fracture. Multiple bilateral rib fractures. These are similar to the previous CT. No pneumothorax. Narrative 05/13/2025 9:[address] CHEST PULMONARY ANGIOGRAM (ACUTE) Referring clinician's provided indication for this examination in Epic: * PE suspected, low/intermediate prob, positive D-dimer TECHNIQUE: Multidetector CT pulmonary angiography was performed after administration of intravenous contrast using tailored dose modulation techniques. 3D angiographic postprocessing techniques were acquired in the form of axial maximum intensity projection images (MIPS). COMPARISON: CT ED TRAUMA CHEST WITH T-SPINE REFORMATS WITHOUT CONTRAST FINDINGS: Pulmonary Angiogram: There is adequate opacification of the pulmonary arteries. No filling defect identified. No acute pulmonary embolus. Devices/Tubes/Lines: None. Lungs: Bilateral lower lobe atelectasis and adjacent consolidation. Mild dependent atelectasis in both upper lobes with mild interstitial opacities, mild interstitial edema. Pleura: Small bilateral pleural effusions. No pneumothorax. Mediastinum: The heart is enlarged. Aortic valve stent is in place. No pericardial effusion. No thoracic aortic aneurysm. Mild atherosclerotic calcifications with aortic valve stent. Lymph Nodes: A few small mediastinal and axillary nodes are present but not pathologically enlarged. Upper Abdomen: No acute abnormality in the upper abdomen. Left renal cyst is present. The pancreas is atrophic. No surrounding inflammation. Chest Wall: No chest wall mass or adenopathy. Mild posterior body wall edema. Bones: The bones are osteopenic. Degenerative changes of the spine and sternoclavicular joints. L1 kyphoplasty. T11 and T12 compression fractures are present with acute fracture through the anterior body of T11. Posterior elements are intact. No retropulsion of the posterior wall. There is also mild loss of height of the T6 and T7 vertebral bodies, chronic in appearance. Anterior left fourth rib fracture is acute appearance. There is mild deformity of multiple anterior ribs which are subacute. Acute lateral right fifth and seventh rib fractures. Procedure Note Ana Zamarripa MD, PhD - 05/13/2025 CT CHEST PULMONARY ANGIOGRAM (ACUTE) Referring clinician's provided indication for this examination in [facility]: *PE suspected, low/intermediate prob, positive D-dimer TECHNIQUE: Multidetector CT pulmonary angiography was performed afteradministration of intravenous contrast using tailored dose modulationtechniques. 3D angiographic postprocessing techniques were acquired in theform of axial maximum intensity projection images (MIPS). COMPARISON: CT ED TRAUMA CHEST WITH T-SPINE REFORMATS WITHOUT [id number] FINDINGS: Pulmonary Angiogram: There is adequate opacification of the pulmonary arteries. No fillingdefect identified. No acute pulmonary embolus. Devices/Tubes/Lines: None. Lungs: Bilateral lower lobe atelectasis and adjacent consolidation. Milddependent atelectasis in both upper lobes with mild interstitialopacities, mild interstitial edema. Pleura: Small bilateral pleural effusions. No pneumothorax. Mediastinum: The heart is enlarged. Aortic valve stent is in place. Nopericardial effusion. No thoracic aortic aneurysm. Mild atheroscleroticcalcifications with aortic valve stent. Lymph Nodes: A few small mediastinal and axillary nodes are present butnot pathologically enlarged. Upper Abdomen: No acute abnormality in the upper abdomen. Left renal cystis present. The pancreas is atrophic. No surrounding inflammation. Chest Wall: No chest wall mass or adenopathy. Mild posterior body walledema. Bones: The bones are osteopenic. Degenerative changes of the spine andsternoclavicular joints. L1 kyphoplasty. T11 and T12 compression fracturesare present with acute fracture through the anterior body of T11.Posterior elements are intact. No retropulsion of the posterior wall.There is also mild loss of height of the T6 and T7 vertebral bodies,chronic in appearance. Anterior left fourth rib fracture is acuteappearance. There is mild deformity of multiple anterior ribs which aresubacute. Acute lateral right fifth and seventh rib fractures. IMPRESSION: 1. No pulmonary embolus. 2. Bilateral pleural effusions with adjacent atelectasis. 3. Acute T11 compression fracture. Multiple bilateral rib fractures. Theseare similar to the previous CT. No pneumothorax. us Rolando Hein DO IMG CT CHEST Final Result * (ABNORMAL) D-dimer (05/13/2025 4:58 AM EDT) D-DIMER 4,602(H) <500 ng/mL FEU [facility] Comment:In patients with low to moderate pre-test probability scores for VTE (PE or DVT), a D-Dimer cut-off less than 500 ng/mL (FEU) has a negative predictive value (NPV) of 97 to 100%. Blood 05/13/2025 4:58 AM EDT 05/13/2025 5:01 AM EDT us Rolando G Hein DO LAB BLOOD BKR ORDERABLES Karley l Result [address] [address] * Lab Add On: troponin (05/13/2025 3:56 AM EDT) TEST REQUESTED TROPONIN [facility] Comments (Chemistry) Add on order being processed. Floor or provider will be notified if testing cannot be performed [facility] 05/13/2025 3:56 AM EDT 05/13/2025 4:12 AM EDT us Rolando G Hein DO LAB BLOOD ORDERABLES Final Re sult Performing Organization Address [facility] Co de Phone Number [address] [address] * (ABNORMAL) Troponin (05/13/2025 3:56 AM EDT) Only the most recent of2 resultswithin the time period is included. Troponin-T, HS Gen5 21(H) 0 - 14 ng/L [facility] Blood 05/13/2025 3:56 AM EDT 05/13/2025 4:12 AM EDT us Rolando G Hein DO LAB BLOOD BKR ORDERABLES Karley l Result Performing Organization Address [facility]/ZIP Co de Phone Number [address] [address] * NT-proBNP (05/13/2025 3:56 AM EDT) NT-PROBNP 235 0 - 450 pg/mL [facility] Blood 05/13/2025 3:56 AM EDT 05/13/2025 4:12 AM EDT us Rolando Hein DO LAB BLOOD BKR ORDERABLES Karley l Result [address] [address] * XR Chest Portable (05/13/2025 3:42 AM EDT) Anatomical Region Laterality Modality Chest Computed Radiogr aphy 05/13/2025 4:27 AM EDT Impressions 05/13/2025 4:30 AM EDT No focal consolidation or overt pulmonary edema. Narrative 05/13/2025 4:30 AM EDT XR CHEST PORTABLE Referring clinician's provided indication for this examination in Epic: Dyspnea (Shortness of Breath) COMPARISON: CT ED TRAUMA CHEST WITH T-SPINE REFORMATS WITHOUT CONTRAST FINDINGS: Devices/Tubes/Lines: None. Lungs: No focal consolidation or pulmonary edema. Pleura: No pleural effusion or pneumothorax. Heart/Mediastinum: Unchanged in appearance. Status post TAVR. Bones/Soft Tissues: No acute abnormality. Procedure Note Ernesto Prater MD - 05/13/2025 XR CHEST PORTABLE Referring clinician's provided indication for this examination in [facility]:Dyspnea (Shortness of Breath) COMPARISON: CT ED TRAUMA CHEST WITH T-SPINE REFORMATS WITHOUT [id number] FINDINGS: Devices/Tubes/Lines: None. Lungs: No focal consolidation or pulmonary edema. Pleura: No pleural effusion or pneumothorax. Heart/Mediastinum: Unchanged in appearance. Status post TAVR. Bones/Soft Tissues: No acute abnormality. IMPRESSION: No focal consolidation or overt pulmonary edema. us Rolando Siu Hein DO IMG XR CHEST Final Result * ECG 12-LEAD (05/13/2025 3:24 AM EDT) Ventricular Rate EKG/MIN 143 BPM [facility] Atrial Rate 141 BPM [facility] QRS Duration 128 ms [facility] QT Interval 334 ms [facility] QTC Interval 515 ms [facility] R Wave [place] -44 degrees [facility] T Wave [place] 2 degrees [facility] 05/13/2025 3:24 AM EDT 05/13/2025 3:07 PM EDT Narrative [facility] - 05/13/2025 3:07 PM EDT Critical Test Result: High HR Supraventricular tachycardia Left axis deviation Right bundle branch block Abnormal ECG No previous ECGs available Confirmed by Silvio Joshi ([id number]) on 05/13/2025 3:07:33 PM us Rolando Hein DO ECG ORDERABLES Final Result [facility] * CT ABDOMEN/PELVIS WITH CONTRAST (05/13/2025 1:53 AM EDT) Anatomical Region Laterality Modality Abdomen, Pelvis Computed Tomogra phy 05/13/2025 3:32 AM EDT Impressions 05/13/2025 3:49 AM EDT 1. No acute abnormality in the abdomen or pelvis. 2. Redemonstration of acute transverse fracture through the inferior endplate of T11. Note made of DISH. 3. Similar small bilateral pleural effusions. 4. 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 This could be further evaluated with outpatient MRCP. Narrative 05/13/2025 3:[address] ABDOMEN/PELVIS WITH CONTRAST Referring clinician's provided indication for this examination in Epic: * Abdominal pain, acute, nonlocalized TECHNIQUE: Multidetector-row CT of the abdomen and pelvis was performed after administration of intravenous contrast using tailored dose modulation techniques. Images were reconstructed in the axial, coronal, and sagittal planes. COMPARISON: CT ED TRAUMA ABDOMEN/PELVIS WITH L-SPINE REFORMATS WITHOUT CON.. FINDINGS: Lower Chest: Similar small bilateral pleural effusions with adjacent atelectasis. Status post TAVR. Liver: No focal lesions. Biliary: Noninflamed gallbladder. No biliary ductal dilatation. Spleen: No splenomegaly or focal lesions. Pancreas: No ductal dilatation. A 9 mm hypodense lesion in the pancreatic using a process. Adrenal Glands: No nodules. Kidneys/Ureters: No stones or hydronephrosis. Cysts, with additional tiny lesions, likely cysts. Bowel: Colonic diverticulosis without diverticulitis. Moderate colonic stool burden. Appendix not visualized, no secondary signs of appendicitis. Peritoneum/Retroperitoneum: No pneumoperitoneum or free fluid. Lymph Nodes: No lymphadenopathy. Pelvic Organs/Bladder: No significant abnormality. Vessels: Aortic atherosclerosis. No aortic aneurysm. 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 Redemonstration of acute transverse fracture through the inferior endplate of T11. Status post L1 and L2 vertebral augmentation. Procedure Note Ernesto Prater MD - 05/13/2025 CT ABDOMEN/PELVIS WITH CONTRAST Referring clinician's provided indication for this examination in Epic: *Abdominal pain, acute, nonlocalized TECHNIQUE: Multidetector-row CT of the abdomen and pelvis was performedafter administration of intravenous contrast using tailored dosemodulation techniques. Images were reconstructed in the axial, coronal,and sagittal planes. COMPARISON: CT ED TRAUMA ABDOMEN/PELVIS WITH L-SPINE REFORMATS WITHOUTCON.. 2024- FINDINGS: Lower Chest: Similar small bilateral pleural effusions with adjacentatelectasis. Status post TAVR. Liver: No focal lesions. Biliary: Noninflamed gallbladder. No biliary ductal dilatation. Spleen: No splenomegaly or focal lesions. Pancreas: No ductal dilatation. A 9 mm hypodense lesion in the pancreaticusing a process. Adrenal Glands: No nodules. Kidneys/Ureters: No stones or hydronephrosis. Cysts, with additional tinylesions, likely cysts. Bowel: Colonic diverticulosis without diverticulitis. Moderate colonicstool burden. Appendix not visualized, no secondary signs ofappendicitis. Peritoneum/Retroperitoneum: No pneumoperitoneum or free fluid. Lymph Nodes: No lymphadenopathy. Pelvic Organs/Bladder: No significant abnormality. Vessels: Aortic atherosclerosis. No aortic aneurysm. Bones/Soft Tissues: There is diffuse idiopathic skeletal hyperostosis(DISH), superimposed on degenerative changes in the visualized spine.Redemonstration of acute transverse fracture through the inferior endplateof T11. Status post L1 and L2 vertebral augmentation. IMPRESSION: 1. No acute abnormality in the abdomen or pelvis. 2. Redemonstration of acute transverse fracture through the inferiorendplate of T11. Note made of DISH. 3. Similar small bilateral pleural effusions. 4. 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 This could be further evaluated with outpatientMRCP. us Rolando Hein DO IMG CT ABD/PELVIS Final Resul t * (ABNORMAL) LFTs (hepatic panel) (05/12/2025 11:51 PM EDT) ALKALINE PHOSPHATASE 64 39 - 117 U/L [facility] TOTAL BILIRUBIN 0.9 0.0 - 1.2 mg/dL [facility] DIRECT BILIRUBIN 0.3(H) 0.0 - 0.2 mg/dL [facility] Bilirubin (Indirect) 0.6 0 - 1.5 mg/dL [facility] AST 30 0 - 37 U/L [facility] ALT 25 0 - 40 U/L [facility] TOTAL PROTEIN 6.7 6.5 - 8.0 g/dL [facility] ALBUMIN 3.8(L) 3.9 - 4.8 g/dL [facility] GLOBULIN 2.9 1 - 4.8 g/dL [facility] A/G Ratio 1.31 1.00 - 4.80 RATIO [facility] Blood 05/12/2025 11:5 1 PM EDT 05/12/2025 11:58 PM EDT us Rolando Hein DO LAB BLOOD BKR ORDERABLES Karley lopez Result [address] [address] * (ABNORMAL) CBC and differential (05/12/2025 11:51 PM EDT) WBC 6.52 4.00 - 11.00 K/uL [facility] RBC 3.39(L) 4.50 - 5.90 M/uL [facility] HGB 11.1(L) 13.5 - 17.5 g/dL [facility] HCT 33.3(L) 41.0 - 53.0 % [facility] PLT 99(L) 150 - 450 K/uL [facility] MCV 98.2 80.0 - 100.0 fL [facility] MCH 32.7(H) 27.0 - 31.0 pg [facility] MCHC 33.3 32.0 - 36.0 g/dL [facility] RDW 13.2 11.5 - 14.5 % [facility] MPV 9.4 8.4 - 12.0 fL [facility] NRBC 0.00 0.00 /100 WBCs [facility] ABSOLUTE NRBC 0.00 0.00 K/uL [facility] DIFF METHOD Auto [facility] NEUTS 74.0 48.0 - 76.0 % [facility] LYMPHS 13.0(L) 18.0 - 41.0 % [facility] MONOS 9.5 4.0 - 11.0 % [facility] EOS 2.9 0.0 - 5.0 % [facility] BASOS 0.3 0.0 - 1.5 % [facility] Granulocytes, immature (%) 0.3 0.0 - 0.9 % [facility] ABSOLUTE NEUTS 4.82 1.92 - 7.60 K/uL [facility] ABSOLUTE LYMPHS 0.85 0.72 - 4.10 K/uL [facility] ABSOLUTE MONOS 0.62 0.16 - 1.10 K/uL [facility] ABSOLUTE EOS 0.19 0.00 - 0.50 K/uL [facility] ABSOLUTE BASOS 0.02 0.00 - 0.15 K/uL [facility] Granulocytes, immature 0.02 0.00 - 0.09 K/uL [facility] Blood 05/12/2025 11:5 1 PM EDT 05/12/2025 11:58 PM EDT us Rolando Hein DO LAB BLOOD BKR ORDERABLES Karley l Result [address] [address] * (ABNORMAL) Lipase (05/12/2025 11:51 PM EDT) LIPASE 11(L) 16 - 63 U/L [facility] Blood 05/12/2025 11:5 1 PM EDT 05/12/2025 11:58 PM EDT us Rolando G Hein DO LAB BLOOD BKR ORDERABLES Karley l Result Performing Organization Address [facility] Co de Phone Number [address] [address] * (ABNORMAL) Basic metabolic panel (05/12/2025 11:51 PM EDT) SODIUM 140 133 - 146 mmol/L [facility] CHLORIDE 104 96 - 108 mmol/L [facility] POTASSIUM 4.9 3.3 - 5.1 mmol/L [facility] CO2 26 21 - 35 mmol/L [facility] BUN 22(H) 6 - 19 mg/dL [facility] CREATININE 0.70 0.5 - 1.5 mg/dL [facility] GLUCOSE 139(H) 70 - 99 mg/dL [facility] CALCIUM 9.1 8.4 - 10.3 mg/dL [facility] EGFR 89 >59 mL/min/1.7 3m2 [facility] Comment:Estimated glomerular filtration rate calculated using the CKD-EPI refit equation. ANION GAP 15 10 - 20 mmol/L [facility] Blood 05/12/2025 11:5 1 PM EDT 05/12/2025 11:58 PM EDT us Rolando G Hein DO LAB BLOOD BKR ORDERABLES Karley l Result Performing Organization Address City/[facility]/ZIP Co de Phone Number [address] [address] * CT ED TRAUMA CHEST WITH T-SPINE REFORMATS WITHOUT CONTRAST (05/09/2025 9:50 AM EDT) MGB IMG [facility] [employer] COMMENT Linear ossific density along the left posterior acetabulum, age indeterminate, needs correlation if focal pain. [facility] Anatomical Region Laterality Modality Chest Computed Tomogra phy 05/09/2025 10:1 8 AM EDT Addenda Addendum by Dulce Maria Rocha MD on 05/09/2025 5:31 PM EDT ADDENDUM: Addendum: Acute minimally displaced fracture of the left anterolateral fourth rib, and nondisplaced left posterior fifth to tenth as well as the right lateral fifth and seventh ribs. Minimal buckling of the left anterior fifth to 8th ribs. Impressions 05/09/2025 11:33 AM EDT 1. Acute distraction fracture of the T11 vertebral body with up to 20% height loss with anterior distraction of about 6 mm. No retropulsion. Adjacent fat stranding. Note made of DISH. 2. Multiple bilateral rib fractures as above. No pneumothorax. Small bilateral pleural effusions. 3. Linear ossific density along the left posterior acetabulum, age indeterminate, needs correlation if focal pain. 4. Otherwise, no evidence of acute traumatic injury in the abdomen. A clinically significant result was initiated on 05/09/2025 10:56 AM, Message ID [id number]. A clinically significant result was initiated on 05/09/2025 11:30 AM, Message ID [id number]. ATTESTATION: I, Marian Esposito as teaching physician, have reviewed the images for this case and if necessary edited the report originally created by Divya Caballero. Narrative 05/09/2025 11:[address] ED TRAUMA CHEST WITH T-SPINE REFORMATS WITHOUT CONTRAST, CT ED TRAUMA ABDOMEN/PELVIS WITH L-SPINE REFORMATS WITHOUT CONTRAST Referring clinician's provided indication for this examination in Epic: * Polytrauma, critical, [id number] injury suspected TECHNIQUE: * Multidetector-row CTs of the chest, abdomen and pelvis was performed without intravenous contrast using tailored dose modulation techniques. Images were reconstructed in the axial, coronal, and sagittal planes. * CTs of the thoracic, and lumbar spine were performed without intravenous contrast using tailored dose modulation techniques. Images were reconstructed in the axial, coronal, and sagittal planes. COMPARISON: None FINDINGS: CHEST: Devices/Tubes/Lines: None. Lungs: Bibasilar and dependent subsegmental atelectasis. No consolidation. The central airways are clear. Partially calcified left lower lobe nodule measures 3 mm. Pleura: Small bilateral pleural effusions, measuring simple in attenuation. No pneumothorax. Mediastinum: Heart size is borderline in size. No pericardial effusion. Moderate amount of coronary calcifications. Aortic valve replacement. No thyroid nodules meeting size criteria for follow up. Atherosclerotic disease of the aorta with no aneurysmal dilatation. Contracted esophagus. Lymph Nodes: No enlarged supraclavicular, axillary, mediastinal, or hilar lymph nodes. Chest Wall: No chest wall hematoma. Bones/Soft Tissues: Acute nondisplaced fracture of the left anterolateral fourth, and left posterior fifth to tenth as well as the right lateral fifth and seventh ribs. Subtle deformity of the left anterolateral second to eights as well as the right anterolateral fourth to eighth ribs could also represent acute nondisplaced fractures. Nondisplaced acute fracture of the left posterior 9, 10 and 11 ribs. Subtle sclerotic change in the body of the sternum ABDOMEN/PELVIS: Liver: Not enlarged. Normal in attenuation. Biliary: Noninflamed gallbladder. No biliary ductal dilatation. Spleen: No splenomegaly. Pancreas: Atrophic. Normal contour. No ductal dilatation. Adrenal Glands: No nodules. Kidneys/Ureters: 1 cm left renal cyst. Subcentimeter bilateral perirenal cysts. No stones or hydronephrosis. Bowel: Colonic diverticulosis without diverticulitis. No bowel wall thickening or dilatation. Diminutive appendix. Peritoneum/Retroperitoneum: No pneumoperitoneum or free fluid. Lymph Nodes: Prostatomegaly with coarse calcification. Pelvic Organs/Bladder: No significant abnormality. Vessels: Atherosclerotic changes of the aorta and its major branches. No abdominal aortic aneurysm. Bones/Soft Tissues: Bilateral hip osteoarthritis, greater on the left. Linear ossific density along the posterior acetabulum, age indeterminate (image 69 series 904) needs correlation if focal pain. Mild subcutaneous fat stranding along the left flank and left gluteal region. THORACIC AND LUMBAR SPINE: Alignment and Vertebrae: Acute fracture of the T11 vertebral body with up to 20% height loss with anterior distraction of about 6 mm. No retropulsion. Adjacent fat stranding tracking along the left retrocrural region. Chronic appearing height loss of T6 and T7 vertebral bodies. Chronic compression fractures of the L1 and L2 vertebral bodies, status post vertebroplasty with retropulsion of the level and accentuated lordosis. Note made of DISH. Discs and Endplates: Multilevel degenerative change. Other Findings: None. Procedure Note Dulce Maria Rocha MD - 05/09/2025 CT ED TRAUMA CHEST WITH T-SPINE REFORMATS WITHOUT CONTRAST, CT ED TRAUMAABDOMEN/PELVIS WITH L-SPINE REFORMATS WITHOUT CONTRAST Referring clinician's provided indication for this examination in Epic: *Polytrauma, critical, [id number] injury suspected TECHNIQUE: * Multidetector-row CTs of the chest, abdomen and pelvis was performedwithout intravenous contrast using tailored dose modulation techniques.Images were reconstructed in the axial, coronal, and sagittal planes. * CTs of the thoracic, and lumbar spine were performed withoutintravenous contrast using tailored dose modulation techniques. Imageswere reconstructed in the axial, coronal, and sagittal planes. COMPARISON: None FINDINGS: CHEST: Devices/Tubes/Lines: None. Lungs: Bibasilar and dependent subsegmental atelectasis. No consolidation.The central airways are clear. Partially calcified left lower lobe nodulemeasures 3 mm. Pleura: Small bilateral pleural effusions, measuring simple inattenuation. No pneumothorax. Mediastinum: Heart size is borderline in size. No pericardial effusion.Moderate amount of coronary calcifications. Aortic valve replacement. Nothyroid nodules meeting size criteria for follow up. Atheroscleroticdisease of the aorta with no aneurysmal dilatation. Contracted esophagus. Lymph Nodes: No enlarged supraclavicular, axillary, mediastinal, or hilarlymph nodes. Chest Wall: No chest wall hematoma. Bones/Soft Tissues: Acute nondisplaced fracture of the left anterolateralfourth, and left posterior fifth to tenth as well as the right lateralfifth and seventh ribs. Subtle deformity of the left anterolateral second to eights as well as theright anterolateral fourth to eighth ribs could also represent acutenondisplaced fractures. Nondisplaced acute fracture of the left posterior 9, 10 and 11 ribs.Subtle sclerotic change in the body of the sternum ABDOMEN/PELVIS: Liver: Not enlarged. Normal in attenuation. Biliary: Noninflamed gallbladder. No biliary ductal dilatation. Spleen: No splenomegaly. Pancreas: Atrophic. Normal contour. No ductal dilatation. Adrenal Glands: No nodules. Kidneys/Ureters: 1 cm left renal cyst. Subcentimeter bilateral perirenalcysts. No stones or hydronephrosis. Bowel: Colonic diverticulosis without diverticulitis. No bowel wallthickening or dilatation. Diminutive appendix. Peritoneum/Retroperitoneum: No pneumoperitoneum or free fluid. Lymph Nodes: Prostatomegaly with coarse calcification. Pelvic Organs/Bladder: No significant abnormality. Vessels: Atherosclerotic changes of the aorta and its major branches. Noabdominal aortic aneurysm. Bones/Soft Tissues: Bilateral hip osteoarthritis, greater on the left.Linear ossific density along the posterior acetabulum, age indeterminate(image 69 series 904) needs correlation if focal pain. Mild subcutaneous fat stranding along the left flank and left glutealregion. THORACIC AND LUMBAR SPINE: Alignment and Vertebrae: Acute fracture of the T11 vertebral body with upto 20% height loss with anterior distraction of about 6 mm. Noretropulsion. Adjacent fat stranding tracking along the left retrocruralregion. Chronic appearing height loss of T6 and T7 vertebral bodies. Chronic compression fractures of the L1 and L2 vertebral bodies, statuspost vertebroplasty with retropulsion of the level and accentuatedlordosis. Note made of DISH. Discs and Endplates: Multilevel degenerative change. Other Findings: None. IMPRESSION: 1. Acute distraction fracture of the T11 vertebral body with up to 20%height loss with anterior distraction of about 6 mm. No retropulsion.Adjacent fat stranding. Note made of DISH. 2. Multiple bilateral rib fractures as above. No pneumothorax. Smallbilateral pleural effusions. 3. Linear ossific density along the left posterior acetabulum, ageindeterminate, needs correlation if focal pain. 4. Otherwise, no evidence of acute traumatic injury in the abdomen. A clinically significant result was initiated on 05/09/2025 10:56 AM,Message ID [id number]. A clinically significant result was initiated on 05/09/2025 11:30 AM,Message ID [id number]. ATTESTATION: Marian Varghese as teaching physician, havereviewed the images for this case and if necessary edited the reportoriginally created by Divya Caballero. us Maris Mays PA-C IMG CT CHEST Edited Result - Final * CT ED TRAUMA ABDOMEN/PELVIS WITH L-SPINE REFORMATS WITHOUT CONTRAST (05/09/2025 9:50 AM EDT) [facility] IMG [facility] COMMENT Linear ossific density along the left posterior acetabulum, age indeterminate, needs correlation if focal pain. [facility] [place] Anatomical Region Laterality Modality Abdomen, Pelvis Computed Tomogra phy 05/09/2025 10:1 8 AM EDT Addenda Addendum by Dulce Maria Rocha MD on 05/09/2025 5:31 PM EDT ADDENDUM: Addendum: Acute minimally displaced fracture of the left anterolateral fourth rib, and nondisplaced left posterior fifth to tenth as well as the right lateral fifth and seventh ribs. Minimal buckling of the left anterior fifth to 8th ribs. Impressions 05/09/2025 11:33 AM EDT 1. Acute distraction fracture of the T11 vertebral body with up to 20% height loss with anterior distraction of about 6 mm. No retropulsion. Adjacent fat stranding. Note made of DISH. 2. Multiple bilateral rib fractures as above. No pneumothorax. Small bilateral pleural effusions. 3. Linear ossific density along the left posterior acetabulum, age indeterminate, needs correlation if focal pain. 4. Otherwise, no evidence of acute traumatic injury in the abdomen. A clinically significant result was initiated on 05/09/2025 10:56 AM, Message ID [id number]. A clinically significant result was initiated on 05/09/2025 11:30 AM, Message ID [id number]. ATTESTATION: I, Marian Esposito as teaching physician, have reviewed the images for this case and if necessary edited the report originally created by Divya Caballero. Narrative 05/09/2025 11:[address] ED TRAUMA CHEST WITH T-SPINE REFORMATS WITHOUT CONTRAST, CT ED TRAUMA ABDOMEN/PELVIS WITH L-SPINE REFORMATS WITHOUT CONTRAST Referring clinician's provided indication for this examination in Epic: * Polytrauma, critical, byaho-vfiqtsd-[id number] injury suspected TECHNIQUE: * Multidetector-row CTs of the chest, abdomen and pelvis was performed without intravenous contrast using tailored dose modulation techniques. Images were reconstructed in the axial, coronal, and sagittal planes. * CTs of the thoracic, and lumbar spine were performed without intravenous contrast using tailored dose modulation techniques. Images were reconstructed in the axial, coronal, and sagittal planes. COMPARISON: None FINDINGS: CHEST: Devices/Tubes/Lines: None. Lungs: Bibasilar and dependent subsegmental atelectasis. No consolidation. The central airways are clear. Partially calcified left lower lobe nodule measures 3 mm. Pleura: Small bilateral pleural effusions, measuring simple in attenuation. No pneumothorax. Mediastinum: Heart size is borderline in size. No pericardial effusion. Moderate amount of coronary calcifications. Aortic valve replacement. No thyroid nodules meeting size criteria for follow up. Atherosclerotic disease of the aorta with no aneurysmal dilatation. Contracted esophagus. Lymph Nodes: No enlarged supraclavicular, axillary, mediastinal, or hilar lymph nodes. Chest Wall: No chest wall hematoma. Bones/Soft Tissues: Acute nondisplaced fracture of the left anterolateral fourth, and left posterior fifth to tenth as well as the right lateral fifth and seventh ribs. Subtle deformity of the left anterolateral second to eights as well as the right anterolateral fourth to eighth ribs could also represent acute nondisplaced fractures. Nondisplaced acute fracture of the left posterior 9, 10 and 11 ribs. Subtle sclerotic change in the body of the sternum ABDOMEN/PELVIS: Liver: Not enlarged. Normal in attenuation. Biliary: Noninflamed gallbladder. No biliary ductal dilatation. Spleen: No splenomegaly. Pancreas: Atrophic. Normal contour. No ductal dilatation. Adrenal Glands: No nodules. Kidneys/Ureters: 1 cm left renal cyst. Subcentimeter bilateral perirenal cysts. No stones or hydronephrosis. Bowel: Colonic diverticulosis without diverticulitis. No bowel wall thickening or dilatation. Diminutive appendix. Peritoneum/Retroperitoneum: No pneumoperitoneum or free fluid. Lymph Nodes: Prostatomegaly with coarse calcification. Pelvic Organs/Bladder: No significant abnormality. Vessels: Atherosclerotic changes of the aorta and its major branches. No abdominal aortic aneurysm. Bones/Soft Tissues: Bilateral hip osteoarthritis, greater on the left. Linear ossific density along the posterior acetabulum, age indeterminate (image 69 series 904) needs correlation if focal pain. Mild subcutaneous fat stranding along the left flank and left gluteal region. THORACIC AND LUMBAR SPINE: Alignment and Vertebrae: Acute fracture of the T11 vertebral body with up to 20% height loss with anterior distraction of about 6 mm. No retropulsion. Adjacent fat stranding tracking along the left retrocrural region. Chronic appearing height loss of T6 and T7 vertebral bodies. Chronic compression fractures of the L1 and L2 vertebral bodies, status post vertebroplasty with retropulsion of the level and accentuated lordosis. Note made of DISH. Discs and Endplates: Multilevel degenerative change. Other Findings: None. Procedure Note Dulce Maria Rocha MD - 05/09/2025 CT ED TRAUMA CHEST WITH T-SPINE REFORMATS WITHOUT CONTRAST, CT ED TRAUMAABDOMEN/PELVIS WITH L-SPINE REFORMATS WITHOUT CONTRAST Referring clinician's provided indication for this examination in Epic: *Polytrauma, critical, magem-shhmokm-tensjc injury suspected TECHNIQUE: * Multidetector-row CTs of the chest, abdomen and pelvis was performedwithout intravenous contrast using tailored dose modulation techniques.Images were reconstructed in the axial, coronal, and sagittal planes. * CTs of the thoracic, and lumbar spine were performed withoutintravenous contrast using tailored dose modulation techniques. Imageswere reconstructed in the axial, coronal, and sagittal planes. COMPARISON: None FINDINGS: CHEST: Devices/Tubes/Lines: None. Lungs: Bibasilar and dependent subsegmental atelectasis. No consolidation.The central airways are clear. Partially calcified left lower lobe nodulemeasures 3 mm. Pleura: Small bilateral pleural effusions, measuring simple inattenuation. No pneumothorax. Mediastinum: Heart size is borderline in size. No pericardial effusion.Moderate amount of coronary calcifications. Aortic valve replacement. Nothyroid nodules meeting size criteria for follow up. Atheroscleroticdisease of the aorta with no aneurysmal dilatation. Contracted esophagus. Lymph Nodes: No enlarged supraclavicular, axillary, mediastinal, or hilarlymph nodes. Chest Wall: No chest wall hematoma. Bones/Soft Tissues: Acute nondisplaced fracture of the left anterolateralfourth, and left posterior fifth to tenth as well as the right lateralfifth and seventh ribs. Subtle deformity of the left anterolateral second to eights as well as theright anterolateral fourth to eighth ribs could also represent acutenondisplaced fractures. Nondisplaced acute fracture of the left posterior 9, 10 and 11 ribs.Subtle sclerotic change in the body of the sternum ABDOMEN/PELVIS: Liver: Not enlarged. Normal in attenuation. Biliary: Noninflamed gallbladder. No biliary ductal dilatation. Spleen: No splenomegaly. Pancreas: Atrophic. Normal contour. No ductal dilatation. Adrenal Glands: No nodules. Kidneys/Ureters: 1 cm left renal cyst. Subcentimeter bilateral perirenalcysts. No stones or hydronephrosis. Bowel: Colonic diverticulosis without diverticulitis. No bowel wallthickening or dilatation. Diminutive appendix. Peritoneum/Retroperitoneum: No pneumoperitoneum or free fluid. Lymph Nodes: Prostatomegaly with coarse calcification. Pelvic Organs/Bladder: No significant abnormality. Vessels: Atherosclerotic changes of the aorta and its major branches. Noabdominal aortic aneurysm. Bones/Soft Tissues: Bilateral hip osteoarthritis, greater on the left.Linear ossific density along the posterior acetabulum, age indeterminate(image 69 series 904) needs correlation if focal pain. Mild subcutaneous fat stranding along the left flank and left glutealregion. THORACIC AND LUMBAR SPINE: Alignment and Vertebrae: Acute fracture of the T11 vertebral body with upto 20% height loss with anterior distraction of about 6 mm. Noretropulsion. Adjacent fat stranding tracking along the left retrocruralregion. Chronic appearing height loss of T6 and T7 vertebral bodies. Chronic compression fractures of the L1 and L2 vertebral bodies, statuspost vertebroplasty with retropulsion of the level and accentuatedlordosis. Note made of DISH. Discs and Endplates: Multilevel degenerative change. Other Findings: None. IMPRESSION: 1. Acute distraction fracture of the T11 vertebral body with up to 20%height loss with anterior distraction of about 6 mm. No retropulsion.Adjacent fat stranding. Note made of DISH. 2. Multiple bilateral rib fractures as above. No pneumothorax. Smallbilateral pleural effusions. 3. Linear ossific density along the left posterior acetabulum, ageindeterminate, needs correlation if focal pain. 4. Otherwise, no evidence of acute traumatic injury in the abdomen. A clinically significant result was initiated on 05/09/2025 10:56 AM,Message ID [id number]. A clinically significant result was initiated on 05/09/2025 11:30 AM,Message ID [id number]. ATTESTATION: Marian Varghese as teaching physician, havereviewed the images for this case and if necessary edited the reportoriginally created by Divya Caballero. Maris Mays PA-C IMG CT ABD/PELVI S Edited Result - Final * CT CERVICAL SPINE WITHOUT CONTRAST (05/09/2025 9:49 AM EDT) Anatomical Region Laterality Modality C-spine Computed Tomogra phy 05/09/2025 10:1 2 AM EDT Addenda Addendum by Dulce Maria Rocha MD on 05/09/2025 5:37 PM EDT ADDENDUM: Addendum: Punctate radiodensity projects along the medial aspect of the right eye could be calcification as it is not clearly seen on the topogram rather than of metal density. If MR is considered, orbital clearance can be obtained. Impressions 05/09/2025 10:56 AM EDT 1. No acute intracranial findings. 2. No acute displaced fracture or traumatic malalignment of the cervical spine. ATTESTATION: Marian Varghese as teaching physician, have reviewed the images for this case and if necessary edited the report originally created by Divya Caballero. Narrative 05/09/2025 10:[address] HEAD WITHOUT CONTRAST, CT CERVICAL SPINE WITHOUT CONTRAST Referring clinician's provided indication for this examination in [facility]: * Head trauma, minor (Age >= 65y) TECHNIQUE: CTs of the head and cervical spine were performed without intravenous contrast using tailored dose modulation techniques. Images were reconstructed in the axial, coronal, and sagittal planes. COMPARISON: None FINDINGS: HEAD: Brain Parenchyma: No midline shift, mass effect, parenchymal hemorrhage, or evidence of acute territorial infarct. Hypodensities in the periventricular white matter, likely a manifestation of chronic small vessel disease. Punctate hypodensity in the left thalamus likely sequela of prior lacunar infarct. Ventricular System and Extra-Axial Spaces: The ventricles and sulci are prominent. No extra-axial fluid collections. Basilar cisterns are patent. No hydrocephalus. Punctate radiodensity projects along the medial aspect of the right eye (image 37 series 3). Osseous and Extracranial Structures: No calvarial fracture or significant soft tissue hematoma. Mild scattered paranasal sinus mucosal thickening. Mild right mastoid posterior partial opacification. No orbital abnormality. CERVICAL SPINE: Alignment and Vertebrae: Straightening of the normal cervical lordosis with mild reversal centered at C5-C6. Preserved vertebral body height. Moderate degenerative changes at the atlantodens interval. Discs and Endplates: Multilevel degenerative changes, most likely at C5-6 with endplate irregularities, osteophytes and decreased disc height. Other Findings: No prevertebral soft tissue swelling.. Procedure Note Dulce Maria Rocha MD - 05/09/2025 CT HEAD WITHOUT CONTRAST, CT CERVICAL SPINE WITHOUT CONTRAST Referring clinician's provided indication for this examination in [facility]: *Head trauma, minor (Age >= 65y) TECHNIQUE: CTs of the head and cervical spine were performed withoutintravenous contrast using tailored dose modulation techniques. Imageswere reconstructed in the axial, coronal, and sagittal planes. COMPARISON: None FINDINGS: HEAD: Brain Parenchyma: No midline shift, mass effect, parenchymal hemorrhage,or evidence of acute territorial infarct. Hypodensities in theperiventricular white matter, likely a manifestation of chronic smallvessel disease. Punctate hypodensity in the left thalamus likely sequelaof prior lacunar infarct. Ventricular System and Extra-Axial Spaces: The ventricles and sulci areprominent. No extra-axial fluid collections. Basilar cisterns are patent.No hydrocephalus. Punctate radiodensity projects along the medial aspectof the right eye (image 37 series 3). Osseous and Extracranial Structures: No calvarial fracture or significantsoft tissue hematoma. Mild scattered paranasal sinus mucosal thickening.Mild right mastoid posterior partial opacification. No orbitalabnormality. CERVICAL SPINE: Alignment and Vertebrae: Straightening of the normal cervical lordosiswith mild reversal centered at C5-C6. Preserved vertebral body height.Moderate degenerative changes at the atlantodens interval. Discs and Endplates: Multilevel degenerative changes, most likely at C5-6with endplate irregularities, osteophytes and decreased disc height. Other Findings: No prevertebral soft tissue swelling.. IMPRESSION: 1. No acute intracranial findings. 2. No acute displaced fracture or traumatic malalignment of the cervicalspine. ATTESTATION: IMarian as teaching physician, havereviewed the images for this case and if necessary edited the reportoriginally created by Divya Caballero. Maris Mays PA-C IMG CT XSPECIALT Y ORDERABLES Edited Result - Final * CT HEAD WITHOUT CONTRAST (05/09/2025 9:49 AM EDT) Anatomical Region Laterality Modality Head Computed Tomogra phy 05/09/2025 10:1 2 AM EDT Addenda Addendum by Dulce Maria Rocha MD on 05/09/2025 5:37 PM EDT ADDENDUM: Addendum: Punctate radiodensity projects along the medial aspect of the right eye could be calcification as it is not clearly seen on the topogram rather than of metal density. If MR is considered, orbital clearance can be obtained. Impressions 05/09/2025 10:56 AM EDT 1. No acute intracranial findings. 2. No acute displaced fracture or traumatic malalignment of the cervical spine. ATTESTATION: I, Marian Esposito as teaching physician, have reviewed the images for this case and if necessary edited the report originally created by Divya Caballero. Narrative 05/09/2025 10:[address] HEAD WITHOUT CONTRAST, CT CERVICAL SPINE WITHOUT CONTRAST Referring clinician's provided indication for this examination in [facility]: * Head trauma, minor (Age >= 65y) TECHNIQUE: CTs of the head and cervical spine were performed without intravenous contrast using tailored dose modulation techniques. Images were reconstructed in the axial, coronal, and sagittal planes. COMPARISON: None FINDINGS: HEAD: Brain Parenchyma: No midline shift, mass effect, parenchymal hemorrhage, or evidence of acute territorial infarct. Hypodensities in the periventricular white matter, likely a manifestation of chronic small vessel disease. Punctate hypodensity in the left thalamus likely sequela of prior lacunar infarct. Ventricular System and Extra-Axial Spaces: The ventricles and sulci are prominent. No extra-axial fluid collections. Basilar cisterns are patent. No hydrocephalus. Punctate radiodensity projects along the medial aspect of the right eye (image 37 series 3). Osseous and Extracranial Structures: No calvarial fracture or significant soft tissue hematoma. Mild scattered paranasal sinus mucosal thickening. Mild right mastoid posterior partial opacification. No orbital abnormality. CERVICAL SPINE: Alignment and Vertebrae: Straightening of the normal cervical lordosis with mild reversal centered at C5-C6. Preserved vertebral body height. Moderate degenerative changes at the atlantodens interval. Discs and Endplates: Multilevel degenerative changes, most likely at C5-6 with endplate irregularities, osteophytes and decreased disc height. Other Findings: No prevertebral soft tissue swelling.. Procedure Note Dulce Maria Rocha MD - 05/09/2025 CT HEAD WITHOUT CONTRAST, CT CERVICAL SPINE WITHOUT CONTRAST Referring clinician's provided indication for this examination in [facility]: *Head trauma, minor (Age >= 65y) TECHNIQUE: CTs of the head and cervical spine were performed withoutintravenous contrast using tailored dose modulation techniques. Imageswere reconstructed in the axial, coronal, and sagittal planes. COMPARISON: None FINDINGS: HEAD: Brain Parenchyma: No midline shift, mass effect, parenchymal hemorrhage,or evidence of acute territorial infarct. Hypodensities in theperiventricular white matter, likely a manifestation of chronic smallvessel disease. Punctate hypodensity in the left thalamus likely sequelaof prior lacunar infarct. Ventricular System and Extra-Axial Spaces: The ventricles and sulci areprominent. No extra-axial fluid collections. Basilar cisterns are patent.No hydrocephalus. Punctate radiodensity projects along the medial aspectof the right eye (image 37 series 3). Osseous and Extracranial Structures: No calvarial fracture or significantsoft tissue hematoma. Mild scattered paranasal sinus mucosal thickening.Mild right mastoid posterior partial opacification. No orbitalabnormality. CERVICAL SPINE: Alignment and Vertebrae: Straightening of the normal cervical lordosiswith mild reversal centered at C5-C6. Preserved vertebral body height.Moderate degenerative changes at the atlantodens interval. Discs and Endplates: Multilevel degenerative changes, most likely at C5-6with endplate irregularities, osteophytes and decreased disc height. Other Findings: No prevertebral soft tissue swelling.. IMPRESSION: 1. No acute intracranial findings. 2. No acute displaced fracture or traumatic malalignment of the cervicalspine. ATTESTATION: Marian Varghese as teaching physician, havereviewed the images for this case and if necessary edited the reportoriginally created by Divya Caballero. Maris Mays PA-C I[facility] HEAD/NECK Edited Result - Final from Last 3 Months Insurance CROSS MEDEX SUPPLEMENT MEDICARE PART A & B MEDEX SUPPLEMENT MEDICARE PART A & B flux - [employer] CROSS MEDEX SUPPLEMENT MEDICARE PART A & B flux - [employer] CROSS MEDEX SUPPLEMENT MEDICARE PART A & B Member Subscriber Plan / Payer (Ef fective 2001-Present) Name:NasHerb carter Member ID:[id number] Relation to Subscriber:Self Name:Herb Quintero Subscriber ID:[id number] Payer ID:[id number] Group ID:Not on file Type:Medicare Address: [employer] [address] [place] [id number] flux - [employer] CROSS MEDEX SUPPLEMENT MEDICARE PART A & B [email or web address] MEDEX SUPPLEMENT MEDICARE PART A & B [email or web address] MEDEX SUPPLEMENT MEDICARE PART A & B flux - [employer] CROSS MEDEX SUPPLEMENT MEDICARE PART A & B flux - [employer] CROSS MEDEX SUPPLEMENT MEDICARE PART A & B Care Teams Termination Clerk Relationship Specialty Start Date End Date Estee Butler MD [address] [place] [address] PCP - General Internal Medicine 12/21/21 Additional Source Comments The information contained in this document represents components of the legal health record. It is not the complete legal health record.[facility]
--- OUTSIDE RECORDS SUMMARY | 2025-07-10 09:51 | XMS_ITS | Encounter Summary ---
Author Organization [facility] Address [address] [place] [id number] Phone Care Team Providers Care Spool Cleaner Hand Name Role Phone Estee Butler MD Primary Care Provider [phone] Encounter Details Date Type Department Care Team ([facility] st Contact Info) Description 05/09/2025 Procedure Pass [facility], Ct Scan - [address] [address] Social History Tobacco Use Types Packs/Day Years [...] on filedocumented in this encounter Care Teams Spool Cleaner Hand Relationship Specialty Start Date End Date Estee Butler MD [facility] [place] [address] PCP - General Internal Medicine 07/09/21 documented as of this encounter Additional Source Comments The information contained in this document represents components of the legal health record. It is not the complete legal health record.[facility]
--- OUTSIDE RECORDS SUMMARY | 2025-07-10 09:51 | XMS_ITS | Encounter Summary ---
Author Organization [facility] Address [address] [place] [address] Phone Care Team Providers Care Tannery Gummer Name Role Phone Estee Butler MD Primary Care Provider [phone] Encounter Details Date Type Department Care Team ([facility] st Contact Info) Description 05/09/2025 Procedure Pass [facility], Ct Scan - [address] [address] Social History Tobacco Use Types Packs/Day Years [...] on filedocumented in this encounter Care Teams Tannery Gummer Relationship Specialty Start Date End Date Estee Butler MD [facility] [place] [address] PCP - General Internal Medicine 07/09/21 documented as of this encounter Additional Source Comments The information contained in this document represents components of the legal health record. It is not the complete legal health record.[facility]
== END 2025-07-10 10:04 | disposition home or self-care (01) ==
LOC: HO.HMCC 09:02
PROVIDERS: PCP Internal Medicine; Visit Provider Internal Medicine
DX: I35.0 Nonrheumatic aortic (valve) stenosis (principal); E78.5 Hyperlipidemia, unspecified; N40.0 Benign prostatic hyperplasia without lower urinary tract symptoms

== ENCOUNTER → 2025-07-10 09:00 | Outpatient (BNVA) | payer MEDICARE, SELFPAY | PROVIDERS: PCP Internal Medicine; Visit Provider Internal Medicine | DX: I35.0 Nonrheumatic aortic (valve) stenosis (principal); E78.5 Hyperlipidemia, unspecified; N40.0 Benign prostatic hyperplasia without lower urinary tract symptoms; Z79.899 Other long term (current) drug therapy | CPT/HCPCS: 99212 ==